=== PATIENT | female | born 1990 | race Caucasian/White ===

== ENCOUNTER → 2017-10-09 14:16 | Outpatient (CLI) | payer OTHER, SELFPAY ==
[2017-10-09 16:04] LABS: Thyroid Stim Hormone (TSH) 1.28 uIU/mL (0.358-3.74)
[2017-10-09 16:08] LABS: Absolute Lymphocyte Count 1.75 X10^3/ul (0.83-4.51); Absolute Neutrophil Count 6.4 X10^3/uL (2.0-7.7); Basophil# 0.01 X10^3/uL; Basophil% 0.1 % (0-1); Eosinophils% 1.2 % (0-5); Hematocrit 36.3 % (37-47); Hemoglobin 12.1 g/dl (12.0-15.0); Lymphocyte # 1.75 X10^3/ul (4.0); Lymphocyte % 20.3 % (19-41); Mean Corp Hgb Conc 33.3 g/gl (32-36); Mean Corpuscular Hgb 27.7 pg (27.0-32.0); Mean Corpuscular Volume 83.1 fL (81-99); Mean Platelet Vol. 10.9 fl (6.2-12.0); Monocyte# 0.39 X10^3/uL; Monocyte% 4.5 % (0-10); Neutrophil # 6.36 X10^3/uL (2.7-7.7); Neutrophil % 73.8 % (47-70); Platelet Count 206 K/mm3 (150-450); RBC Distribution Width CV 12.5 % (11.6-14.6); RBC Distribution Width SD 38.2 fl (35.1-43.9); Red Blood Count 4.37 M/mm3 (4.2-5.4); White Blood Count 8.6 K/mm3 (4.4-11.0)
[2017-10-09 16:10] LABS: Amphetamine Urine VISTA NEGATIVE (<1000 ng/mL); Barbiturate Urine VISTA NEGATIVE (< 200 ng/mL); Benzodiazepine Urine VISTA NEGATIVE (< 200 ng/mL); Cocaine Urine VISTA NEGATIVE (< 300 ng/mL); Ecstacy Urine VISTA NEGATIVE (< 500 ng/mL); Methadone Urine VISTA NEGATIVE (< 300 ng/mL); PCP Urine VISTA NEGATIVE (< 25 ng/mL); THC Urine VISTA NEGATIVE (< 50 ng/mL); Vista UDS pH Range 6
[2017-10-09 16:13] LABS: Color, Urine Yellow (Yellow); Glucose, Dipstick Normal (Normal); Ketone-Dipstick 5 mg/dl (Negative); Leukocyte Esterase-Dipstick 100 /ul (Negative); Nitrite-Dipstick Negative (Negative); Occult Blood-Urine Negative /ul (Negative); Protein-Dipstick Negative (Negative); Specific Gravity, Urine 1.025 (1.002-1.030); Urine Bilirubin Dipstick Negative (Negative); Urine Clarity Sl. Cloudy (Clear); Urine Urobilinogen Normal (Normal)
[2017-10-09 16:23] LABS: COTININE Drug Screen Negative (<200 ng/mL)
[2017-10-09 16:54] LABS: POSITIVE COUNT NO; POSITIVE DIFFERENTIAL NO; POSITIVE MORPHOLOGY NO
[2017-10-10 10:13] LABS: HIV - WCH Non-Reactive (Nonreactive); Rubella IgG > 500.0 IU/mL
[2017-10-11 11:22] LABS: HEPATITIS B SURFACE AG Negative (Negative); Hep C Antibodies 0.1 s/co ratio (0.0-0.9)
[2017-10-14 01:50] LABS: Prenatal RPR REACTIVE (NONREACTIVE)
== END ==
PROVIDERS: Visit Provider Obstetrics & Gynecology
DX: Z34.81 Encounter for supervision of other normal pregnancy, first trimester (principal)
CPT/HCPCS: 36415; 80307; 81002; 84443; 85025; 86703; 86762; 86803; 87340

== ENCOUNTER → 2017-12-04 16:56 | Outpatient (CLI) | payer OTHER, SELFPAY ==
[2017-12-04 17:00] LABS: Mucous, Urine 0 SEEN /hpf (<or=2+); Red Blood Cells-Urine 0 SEEN /hpf (0-5)
[2017-12-04 17:50] LABS: Color, Urine Yellow (Yellow); Glucose, Dipstick Normal (Normal); Ketone-Dipstick Negative (Negative); Leukocyte Esterase-Dipstick 500 /ul (Negative); Nitrite-Dipstick Negative (Negative); Occult Blood-Urine Negative /ul (Negative); Protein-Dipstick Negative (Negative); Specific Gravity, Urine 1.005 (1.002-1.030); Urine Bilirubin Dipstick Negative (Negative); Urine Clarity Sl. Cloudy (Clear); Urine Urobilinogen Normal (Normal)
[2017-12-04 18:14] LABS: Bacteria 1+ /hpf (None Seen); Squamous Epithelial Cells - UA 0-5 SEEN /hpf (5-10); White Blood Cells 0-5 SEEN /hpf (0-5)
== END ==
PROVIDERS: Visit Provider Obstetrics & Gynecology
DX: Z34.82 Encounter for supervision of other normal pregnancy, second trimester (principal); R30.0 Dysuria
CPT/HCPCS: 81001; 87086; 87088

== ENCOUNTER → 2018-02-19 16:27 | Outpatient (CLI) | payer OTHER, SELFPAY ==
[2018-02-19 17:00] LABS: Hematocrit 32.5 % (37-47); Hemoglobin 10.6 g/dl (12.0-15.0); Mean Corp Hgb Conc 32.6 g/gl (32-36); Mean Corpuscular Hgb 27.2 pg (27.0-32.0); Mean Corpuscular Volume 83.5 fL (81-99); Mean Platelet Vol. 10.8 fl (6.2-12.0); Platelet Count 157 K/mm3 (150-450); RBC Distribution Width CV 12.8 % (11.6-14.6); RBC Distribution Width SD 38.7 fl (35.1-43.9); Red Blood Count 3.89 M/mm3 (4.2-5.4); White Blood Count 8.3 K/mm3 (4.4-11.0)
[2018-02-19 17:01] LABS: Scan Indicated on CBC? Y/N NO
[2018-02-19 17:17] LABS: Glucose Challenge Gest 1H 50g 142 mg/dL (70-140)
[2018-02-20 11:05] LABS: Ferritin 4 ng/mL (8-252)
== END ==
PROVIDERS: Visit Provider Obstetrics & Gynecology
DX: Z34.83 Encounter for supervision of other normal pregnancy, third trimester (principal)
CPT/HCPCS: 36415; 82728; 82950; 85027

== ENCOUNTER → 2018-02-26 07:05 | Outpatient (CLI) | payer OTHER, SELFPAY ==
[2018-02-26 08:16] LABS: Glucose GTT-Gestation. Fasting 81 mg/dL (<105)
[2018-02-26 09:43] LABS: Glucose GTT-Gestational 1 Hr 179 mg/dL (<190)
[2018-02-26 10:12] LABS: Glucose GTT-Gestational 2 Hr 175 mg/dL (<165)
[2018-02-26 12:08] LABS: Glucose GTT-Gestational 3 Hr 84 L (<145)
== END ==
PROVIDERS: Visit Provider Obstetrics & Gynecology
DX: O24.912 Unspecified diabetes mellitus in pregnancy, second trimester (principal); Z3A.00 Weeks of gestation of pregnancy not specified
CPT/HCPCS: 36415; 82951; 82952

== ENCOUNTER → 2018-04-11 16:07 | Outpatient (CLI) | payer OTHER, SELFPAY ==
[2018-04-11 18:12] LABS: Group B Strep DNA By PCR Negative (Negative)
[2018-04-11 18:13] LABS: Internal Control PASS; Probe Check PASS; Specimen Processing Control PASS
== END ==
PROVIDERS: Visit Provider Obstetrics & Gynecology
DX: Z36.85 Encounter for antenatal screening for Streptococcus B (principal)
CPT/HCPCS: 87081; 87653

== ENCOUNTER 2018-04-17 13:15 | Outpatient (CLI) | payer OTHER, SELFPAY ==
[2018-04-17 13:33] VITALS: BMI 37.0
--- NOTE | 2018-04-18 00:06 | PCM.DC.D&C ---
Discharge Diet: No Restrictions Discharge Activity: Return to Normal Activity, May Not Drive, May not drive while taking narcotic pain medications., May Shower Return to work on:: 06/17/18 May shower in (days): 0 May resume sexual activity in: 4-6 weeks Call your doctor if your incision/area has: Sudden Increased Bleeding, Increased Pain/ Swelling, Increased Redness, Foul Smelling Discharge, Swelling at the incision site Call your doctor if you observe: Fever of 101 or Higher, Inability to urinate, Inability to have a bowel movement, Using more than one pad per hour, Shortness of breath, Chest pain, Calf discomfort, Uncontrolled pain Remove Dressing in (days):: 3 Cleanse incision/area with: Soap & Water Allergies/Adverse Reactions: Allergies titanium Allergy (Severe, Verified 04/17/18 20:31) Hives bee venom protein (honey bee) Allergy (Mild, Verified 04/17/18 20:31) Swelling Medications to take at Discharge Ferrous Sulfate 325 mg PO DAILY@0800 04/17/18 Vit Calc,Iron,Folic [ Vitamins] 1 each PO DAILY 04/17/18 Ibuprofen 600 mg PO 4X/DAY #30 tab 04/18/18 Oxycodone [Oxyir] 5 - 10 mg PO Q4H PRN PRN 7 Days #28 tab 04/18/18 The following prescriptions were given: Oxycodone [Oxyir] 5 - 10 mg PO Q4H PRN PRN 7 Days #28 tab PRN Reason: Mod-Severe Pain (4-10/10) Ibuprofen 600 mg PO 4X/DAY #30 tab Primary Care Physician: Care Physician,No Primary [Primary Care Provider] - Test Results: Test results from this visit will be discussed in further detail at your follow-up appointment, if applicable. Please Follow Up With: Shwetha Vizcaino MD When: one week Proposed Discharge Date: 04/21/18
--- NOTE | 2018-04-18 00:07 | PCM.OPRPT ---
Problem List (1) Premature rupture of membranes (PROM), onset of labor within 24 hours, delivered, Status: Acute Report of Operation Date of Procedure: 04/18/18 Pre-Operative Diagnosis: Previous Section, Premature Rupture of Membranes, Desires Sterilization Post-Operative Diagnosis: Same Surgery/Procedure Performed:: Repeat Low Transverse Section, Bilateral Partial Salpingectomy Description of Surgical Findings:: Live male in vertex presentation weighing 4kw40my. Apgars 8/9. Amniotic fluid clear. Normal appearing uterus, ovaries, and fallopian tubes. Some scarring present between omentum and anterior abdominal wall. pneumatic deicer inspector: Lela Jha Type of Anesthesia:: Spinal Anesthesiologist: Efrain Barron Special Medications: none Specimen's removed: Portions of the left and right fallopian tubes Drains: rosado Estimated Blood Loss (mL): 600cc Fluids Replaced: 1500cc LR Description of Procedure: Maya was taken to the OR with running. She was given 2 grams of Ancef intravenously for surgical prophylaxis prior to the surgery. SCDs were in place and operational throughout the case. Spinal anesthesia was introduced without complication. A rosado catheter was placed. She was prepped and draped in the supine position with a leftward tilt. Once anesthesia was deemed adequate a Pfannensteil skin incision was made through the previous scar. The underlying subcutaneous tissue was dissected down to the level of facia using sharp and blunt dissection. The fascia was then incised laterally in the midline and this incision was extended bilaterally with the [place] scissors. The upper portion of the fascial defect was then grasped with two Janee clamps, elevated and the rectus muscles dissected off the fascia with blunt and sharp dissection. In a similar fashion the rectus muscles were dissected off the lower fascial defect. The rectus muscles were then in the midline, the peritoneum identified and entered sharply. Once entered the peritoneal defect was extended using blunt retraction. A bladder blade was then placed. The vesicouterine peritoneum was then entered sharply and a bladder flap created. The bladder blade was replaced. The ;lower uterine segement was then intered sharply. Once the cavity was entered the uterine defect was extended using blunt lateral and superior traction. The baby was then delivered from the vertex position without difficulty. The baby's mouth was suctioned with a bulb suction. Delayed cord clamping was employed. The cord was then clamped and cut. The baby was then handed off to the waiting nursing staff for evaluation. The placenta was then delivered manually. The therus was exteriorised and the cavity cleared of all clot and membranes. The uterine incision was then repaired in two layers with #1 Vicryl suture. Attention was then directed tothe fallopian tubes. The left fallopian tube was grasped with a [place] clamp elevated. A rent was made in the mesosalpinx. the tube was then doubly tied with 2-0 plain suture cut and the mesosalpinx distally clamped and cut thus removing the distal portion of the tube. The mesosalpinx was tied off. In a similar fashion the right distal fallopian tube was removed. The posterior cul de sac was then cleared of all clot and fluid. The uterus was returned to the abdomen. The uterine defect was reinspected and found to be hemostatic. The gutters were cleared of all fluid and clot. The peritoneum was then closed with 2-0 Vicryl. The rectus muscles reapproximated with 0-Vicryl suture. The fascia closed with a subcuticular stitch of #1 Stratofix suture. The subcutaneous tissue was closed with 2-0 Vicryl. The skin was closed with a subcuticular stitch of 4-0 Monocryl. Sponge, lap, needle, and instrument counts were correct. She was taken to the recovery room in stable condition. Grafts/Implants Used: none - Complications none - Admit VTE Documentation VTE Present on Admission: No VTE Mechan Device Prophylaxis: SCD's VTE Pharm Prophylaxis ordered?: No
[2018-04-18 06:22] LABS: Hematocrit 30.7 % (37-47); Mean Corp Hgb Conc 32.6 g/gl (32-36); Mean Corpuscular Hgb 26.5 pg (27.0-32.0); Mean Corpuscular Volume 81.2 fL (81-99); Mean Platelet Vol. 12.3 fl (6.2-12.0); Platelet Count 149 K/mm3 (150-450); RBC Distribution Width CV 14.3 % (11.6-14.6); RBC Distribution Width SD 41.3 fl (35.1-43.9); Red Blood Count 3.78 M/mm3 (4.2-5.4); White Blood Count 18.3 K/mm3 (4.4-11.0)
[2018-04-18 06:38] LABS: Scan Indicated on CBC? Y/N NO
--- NOTE | 2018-05-24 12:27 | OB.TRI.NOTE ---
- Problem List (1) Premature rupture of membranes (PROM), onset of labor within 24 hours, delivered, Status: Acute History of Present Illness Date of Service: 04/18/18 Was patient seen by the physician?: Yes Reason For Visit: RULE OUT LABOR Date of Service: 04/18/18 Final HARINI: 05/10/18 Final HARINI Source: US <20 weeks Gestational age: 39 History of Present Illness: Reports contractions and leaking fluid from the vagina Allergies titanium Allergy (Severe, Verified 04/17/18 20:31) Hives bee venom protein (honey bee) Allergy (Mild, Verified 04/17/18 20:31) Swelling Physical Exam General: Alert, Oriented x3, Cooperative, No apparent distress Cardiovascular: Regular rate, Regular Rhythm Lungs: Clear to auscultation, Normal air movement Abdomen: Soft, Non Tender, Non-Distended, Gravid, Appropriate for Gestational Age Neurological: Neuro grossly intact SPECIALIST PHYSICIANS: Normal external genitalia Estimated gestational size: Appropriate for gestational size Presentation: Cephalic NST - FHR Rate Baby A Baseline: 130s Variability:: Moderate Accelerations:: 15 x 15 Decelerations:: None NST Reactive:: Yes, Appropriate for gestational age FHR Category:: Category I Uterine Activity:: irregular contractions Impression/Plan ROM+ testing positive. Previous section. Requesting repeat C/S. Will admit for repeat C/S.
--- NOTE | 2018-05-24 12:31 | OB.TRI.HP_ITS ---
- Problem List (1) Premature rupture of membranes (PROM), onset of labor within 24 hours, delivered, Status: Acute History of Present Illness Date of Service: 04/18/18 Was patient seen by the physician?: Yes Reason For Visit: RULE OUT LABOR Date of Service: 04/18/18 Final HARINI: 05/10/18 Final HARINI Source: US <20 weeks Gestational age: 39 History of Present Illness: Reports contractions and leaking fluid from the vagina Allergies titanium Allergy (Severe, Verified 04/17/18 20:31) Hives bee venom protein (honey bee) Allergy (Mild, Verified 04/17/18 20:31) Swelling Physical Exam General: Alert, Oriented x3, Cooperative, No apparent distress Cardiovascular: Regular rate, Regular Rhythm Lungs: Clear to auscultation, Normal air movement Abdomen: Soft, Non Tender, Non-Distended, Gravid, Appropriate for Gestational Age Neurological: Neuro grossly intact 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 Previous section. Requesting repeat C/S. Will admit for repeat C/S.
== END 2018-04-17 14:20 | disposition home or self-care (01) ==
LOC: WPOUT 13:31 → WP 04-18 06:41
PROVIDERS: Visit Provider Obstetrics & Gynecology
DX: O09.213 Supervision of pregnancy with history of pre-term labor, third trimester (principal); O34.211 Maternal care for low transverse scar from previous cesarean delivery; Z3A.37 37 weeks gestation of pregnancy
CPT/HCPCS: 59050; 85027; 99218; G0378

== ENCOUNTER 2018-04-17 22:50 | Inpatient (IN) | payer OTHER, SELFPAY ==
[2018-04-17] MEDS: Lactated Ringers 1,000 ML 999 ML IV (20:12)
[2018-04-17 20:15] VITALS: BMI 36.8
[2018-04-17] MEDS: Acetaminophen 500 MG Tablet 1000 MG PO (20:24)
[2018-04-17] MEDS: Betamethasone/Betamethasone 30 MG/5 ML Vial 12 MG IM (20:25)
[2018-04-17] MEDS: Terbutaline 1 MG/ML Vial 0.25 MG SC ×2 (21:08→21:56)
[2018-04-17 21:10] LABS: Absolute Lymphocyte Count 1.39 X10^3/ul (0.83-4.51); Absolute Neutrophil Count 11.7 X10^3/uL (2.0-7.7); Basophil# 0.01 X10^3/uL; Basophil% 0.1 % (0-1); Eosinophil# 0.05 X10^3/uL; Eosinophils% 0.4 % (0-5); Hematocrit 33.5 % (37-47); Hemoglobin 10.7 g/dl (12.0-15.0); Lymphocyte # 1.39 X10^3/ul (4.0); Mean Corp Hgb Conc 31.9 g/gl (32-36); Mean Corpuscular Hgb 25.7 pg (27.0-32.0); Mean Corpuscular Volume 80.5 fL (81-99); Mean Platelet Vol. 12.2 fl (6.2-12.0); Monocyte% 5.7 % (0-10); Neutrophil # 11.66 X10^3/uL (2.7-7.7); Neutrophil % 83.6 % (47-70); Platelet Count 144 K/mm3 (150-450); RBC Distribution Width CV 14.1 % (11.6-14.6); RBC Distribution Width SD 41.4 fl (35.1-43.9); Red Blood Count 4.16 M/mm3 (4.2-5.4); White Blood Count 13.9 K/mm3 (4.4-11.0)
[2018-04-17 21:12] LABS: POSITIVE COUNT NO; POSITIVE DIFFERENTIAL NO; POSITIVE MORPHOLOGY NO
[2018-04-17] MEDS: Lactated Ringers 1,000 ML 250 ML IV (21:41)
[2018-04-17 22:48] LABS: ROM Internal Control Test YES-OK TO RESULT pt. (Internal QC)
[2018-04-17 22:49] LABS: ROM Patient Test POSITIVE (Negative)
--- NOTE | 2018-04-17 23:54 | OB.TRI.NOTE ---
History of Present Illness Date of Service: 04/17/18 Was patient seen by the physician?: No Reason For Visit: r/o labor Date of Service: 04/17/18 Final HARINI: 05/10/18 Final HARINI Source: US <20 weeks Gestational age: 36 Weeks and 5 Days History of Present Illness: c/o contractions Allergies titanium Allergy (Severe, Verified 04/17/18 20:31) Hives bee venom protein (honey bee) Allergy (Mild, Verified 04/17/18 20:31) Swelling Physical Exam General: Alert, Oriented x3, Cooperative, No apparent distress Cardiovascular: Regular rate, Regular Rhythm Lungs: Clear to auscultation, Normal air movement Abdomen: Soft, Non Tender, Non-Distended, Gravid, Appropriate for Gestational Age Extremities:: No edema Neurological: Neuro grossly intact BOAT BUILDER: Normal external genitalia Estimated gestational size: Appropriate for gestational size Presentation: Cephalic Cervix Dilation (cm): 0 Station: -3 Effacement (%): 0 NST - FHR Rate Baby A Baseline: 130s Variability:: Moderate Accelerations:: 15 x 15 Decelerations:: None NST Reactive:: Yes, Appropriate for gestational age FHR Category:: Category I Uterine Activity:: irregular Impression/Plan No cervical change and irregular contractions. No cervical change. Discharged with instructions to return if symptoms increase or has signs of PPROM
[2018-04-18] VITALS (25 sets, daily range): BP systolic 103–145; BP diastolic 52–78; PULSE 76–112; RESP 13–18; TEMP 36–37; O2SAT 92–100
--- NOTE | 2018-04-18 | FALS_PTH ---
PATIENT: MARTHA WELDON LOC: [facility] U#:[id number] AGE/SX: 27/F ROOM: WP003 RE04/17/[address]: Dr. Nahum Mondragon MD : 1990 BED: 1 DIS: 04/19/2018 SPEC #: [id number] RECD: 04/18/18 16:01 STATUS: ZHAO REQ #: [id number] CLEVE: 04/18/18 00:[address]: Nahum Mondragon DEPT: SURGICAL PATHOLOGY RECD BY: Art Mercer ENTERED: 04/19/18 07:57 SP TYPE: FALL TUBES OTHR DR: No Primary Care Phys Tissues: Fallopian tube Procedures: Surgery Specimen Level II HEADER OPERATION: Tubal ligation PRE-OP DIAGNOSIS: Desires sterilization TISSUE SUBMITTED: Fallopian tubes, suture in left tube MICROSCOPIC DIAGNOSIS Right fallopian tube - salpingectomy: Benign paratubal cysts. Left fallopian tube ? salpingectomy: No pathologic change. AM:sp 8/27/18 MICROSCOPIC DESCRIPTION Slides are reviewed. GROSS DESCRIPTION Received is one container labeled with the patient's name and designated bilateral fallopian tubes, sutured left. The specimen consists of two designated fallopian tubes with an average length of 2.5 cm and has a maximal diameter of 0.7 cm. Both fallopian tubes have normal fimbriated ends. No mass lesions are identified. Equipment Specialist sections are submitted in two cassettes as follows: 1 ? Right fallopian tube, 2 ? Left fallopian tube. / AM:melanie 04/19/18 TC: 4 CPT: 97621 x2
--- NOTE | 2018-04-18 00:07 | PCM.OPRPT ---
Problem List (1) Premature rupture of membranes (PROM), onset of labor within 24 hours, delivered, Status: Acute Report of Operation Date of Procedure: 04/18/18 Pre-Operative Diagnosis: Previous Section, Premature Rupture of Membranes, Desires Sterilization Post-Operative Diagnosis: Same Surgery/Procedure Performed:: Repeat Low Transverse Section, Bilateral Partial Salpingectomy Description of Surgical Findings:: Live male in vertex presentation weighing [id number]. Apgars 8/9. Amniotic fluid clear. Normal appearing uterus, ovaries, and fallopian tubes. Some scarring present between omentum and anterior abdominal wall. core rescuer: Lela Jha Type of Anesthesia:: Spinal Anesthesiologist: Efrain Barron Special Medications: none Specimen's removed: Portions of the left and right fallopian tubes Drains: rosado Estimated Blood Loss (mL): 600cc Fluids Replaced: 1500cc LR Description of Procedure: Maya was taken to the OR with running. She was given 2 grams of Ancef intravenously for surgical prophylaxis prior to the surgery. SCDs were in place and operational throughout the case. Spinal anesthesia was introduced without complication. A rosado catheter was placed. She was prepped and draped in the supine position with a leftward tilt. Once anesthesia was deemed adequate a Pfannensteil skin incision was made through the previous scar. The underlying subcutaneous tissue was dissected down to the level of facia using sharp and blunt dissection. The fascia was then incised laterally in the midline and this incision was extended bilaterally with the [place] scissors. The upper portion of the fascial defect was then grasped with two Janee clamps, elevated and the rectus muscles dissected off the fascia with blunt and sharp dissection. In a similar fashion the rectus muscles were dissected off the lower fascial defect. The rectus muscles were then in the midline, the peritoneum identified and entered sharply. Once entered the peritoneal defect was extended using blunt retraction. A bladder blade was then placed. The vesicouterine peritoneum was then entered sharply and a bladder flap created. The bladder blade was replaced. The ;lower uterine segement was then intered sharply. Once the cavity was entered the uterine defect was extended using blunt lateral and superior traction. The baby was then delivered from the vertex position without difficulty. The baby's mouth was suctioned with a bulb suction. Delayed cord clamping was employed. The cord was then clamped and cut. The baby was then handed off to the waiting nursing staff for evaluation. The placenta was then delivered manually. The therus was exteriorised and the cavity cleared of all clot and membranes. The uterine incision was then repaired in two layers with #1 Vicryl suture. Attention was then directed tothe fallopian tubes. The left fallopian tube was grasped with a [place] clamp elevated. A rent was made in the mesosalpinx. the tube was then doubly tied with 2-0 plain suture cut and the mesosalpinx distally clamped and cut thus removing the distal portion of the tube. The mesosalpinx was tied off. In a similar fashion the right distal fallopian tube was removed. The posterior cul de sac was then cleared of all clot and fluid. The uterus was returned to the abdomen. The uterine defect was reinspected and found to be hemostatic. The gutters were cleared of all fluid and clot. The peritoneum was then closed with 2-0 Vicryl. The rectus muscles reapproximated with 0-Vicryl suture. The fascia closed with a subcuticular stitch of #1 Stratofix suture. The subcutaneous tissue was closed with 2-0 Vicryl. The skin was closed with a subcuticular stitch of 4-0 Monocryl. Sponge, lap, needle, and instrument counts were correct. She was taken to the recovery room in stable condition. Grafts/Implants Used: none - Complications none - Admit VTE Documentation VTE Present on Admission: No VTE Mechan Device Prophylaxis: SCD's VTE Pharm Prophylaxis ordered?: No
--- NOTE | 2018-04-18 00:29 | OP.PCM_ITS ---
Problem List (1) Premature rupture of membranes (PROM), onset of labor within 24 hours, delivered, Status: Acute Report of Operation Date of Procedure: 04/18/18 Pre-Operative Diagnosis: Previous Section, Premature Rupture of Membranes, Desires Sterilization Post-Operative Diagnosis: Same Surgery/Procedure Performed:: Repeat Low Transverse Section, Bilateral Partial Salpingectomy Description of Surgical Findings:: Live male in vertex presentation weighing 3pf65ty. Apgars 8/9. Amniotic fluid clear. Normal appearing uterus, ovaries, and fallopian tubes. Some scarring present between omentum and anterior abdominal wall. test engineer nuclear equipment: Lela Jha Type of Anesthesia:: Spinal Anesthesiologist: Efrain Barron Special Medications: none Specimen's removed: Portions of the left and right fallopian tubes Drains: rosado Estimated Blood Loss (mL): 600cc Fluids Replaced: 1500cc LR Description of Procedure: Maya was taken to the OR with running. She was given 2 grams of Ancef intravenously for surgical prophylaxis prior to the surgery. SCDs were in place and operational throughout the case. Spinal anesthesia was introduced without complication. A rosado catheter was placed. She was prepped and draped in the supine position with a leftward tilt. Once anesthesia was deemed adequate a Pfannensteil skin incision was made through the previous scar. The underlying subcutaneous tissue was dissected down to the level of facia using sharp and blunt dissection. The fascia was then incised laterally in the midline and this incision was extended bilaterally with the Pined[place] scissors. The upper portion of the fascial defect was then grasped with two Janee clamps, elevated and the rectus muscles dissected off the fascia with blunt and sharp dissection. In a similar fashion the rectus muscles were dissected off the lower fascial defect. The rectus muscles were then in the midline, the peritoneum identified and entered sharply. Once entered the peritoneal defect was extended using blunt retraction. A bladder blade was then placed. The vesicouterine peritoneum was then entered sharply and a bladder flap created. The bladder blade was replaced. The ;lower uterine segement was then intered sharply. Once the cavity was entered the uterine defect was extended using blunt lateral and superior traction. The baby was then delivered from the vertex position without difficulty. The baby's mouth was suctioned with a bulb suction. Delayed cord clamping was employed. The cord was then clamped and cut. The baby was then handed off to the waiting nursing staff for evaluation. The placenta was then delivered manually. The therus was exteriorised and the cavity cleared of all clot and membranes. The uterine incision was then repaired in two layers with #1 Vicryl suture. Attention was then directed tothe fallopian tubes. The left fallopian tube was grasped with a [place] clamp elevated. A rent was made in the mesosalpinx. the tube was then doubly tied with 2-0 plain suture cut and the mesosalpinx distally clamped and cut thus removing the distal portion of the tube. The mesosalpinx was tied off. In a similar fashion the right distal fallopian tube was removed. The posterior cul de sac was then cleared of all clot and fluid. The uterus was returned to the abdomen. The uterine defect was reinspected and found to be hemostatic. The gutters were cleared of all fluid and clot. The peritoneum was then closed with 2-0 Vicryl. The rectus muscles reapproximated with 0- Vicryl suture. The fascia closed with a subcuticular stitch of #1 Stratofix suture. The subcutaneous tissue was closed with 2-0 Vicryl. The skin was closed with a subcuticular stitch of 4-0 Monocryl. Sponge, lap, needle, and instrument counts were correct. She was taken to the recovery room in stable condition. Grafts/Implants Used: none - Complications none - Admit VTE Documentation VTE Present on Admission: No VTE Mechan Device Prophylaxis: SCD's VTE Pharm Prophylaxis ordered?: No
[2018-04-18] MEDS: Sodium Citrate/Citric Acid 30 ML UDC PO (00:38)
[2018-04-18] MEDS: Cefazolin 2 GM in 0.9% Normal Saline 100 ML IV (00:50)
[2018-04-18] MEDS: Lactated Ringers 1,000 ML 150 ML IV (02:56)
[2018-04-18] MEDS: Lactated Ringers 1,000 ML 100 ML IV (04:45)
--- NOTE | 2018-04-18 06:38 | PCM.DCCSEC ---
Discharge Diet: No Restrictions Discharge Activity: Return to Normal Activity, May Not Drive, May not drive while taking narcotic pain medications., May Shower Return to work on:: 06/17/18 May shower in (days): 0 May resume sexual activity in: 4-6 weeks Call your doctor if your incision/area has: Sudden Increased Bleeding, Increased Pain/ Swelling, Foul Smelling Discharge, Swelling at the incision site Call your doctor if you observe: Fever of 101 or Higher, Inability to urinate, Inability to have a bowel movement, Using more than one pad per hour, Shortness of breath, Chest pain, Calf discomfort, Uncontrolled pain Remove Dressing in (days):: 3 Cleanse incision/area with: Soap & Water Additional Instructions: If you experience any of the following, contact your healthcare provider. Bleeding that soaks a pad every hour for 2 hours Fever 100.4 or higher Unrelieved incision or abdominal pain Swelling, redness, discharge or bleeding from your incision or episiotomy site Your incision begins to separate Problems urinating (including inability to urinate or burning while urinating). Visual changes Severe headache Flu-like symptoms Pain or redness in one of both of your breasts Pain, warmth, tenderness or swelling in your legs, especially the calf area Frequent nausea and vomiting Symptoms of depression or anxiety If you experience any of the following, call 911 or go to the nearest Emergency Room. Chest pain Problems breathing Seizure activity Partial or complete paralysis of a body part, slurred speech, weakness or drooping of the face, or a sudden inability to walk or hold your balance Allergies/Adverse Reactions: Allergies titanium Allergy (Severe, Verified 04/17/18 20:31) Hives bee venom protein (honey bee) Allergy (Mild, Verified 04/17/18 20:31) Swelling Medications to take at Discharge RX: Ferrous Sulfate 325 mg PO DAILY@0800 04/17/18 RX: Vit Calc,Iron,Folic [ Vitamins] 1 each PO DAILY 04/17/18 RX: Ibuprofen 600 mg PO 4X/DAY #30 tab 04/18/18 RX: Oxycodone [Oxyir] 5 - 10 mg PO Q4H PRN PRN 7 Days #28 tab 04/18/18 Follow-Up: Call to make an appointment with your doctor for an incision check in 1-2 weeks. You will also need a 6 week post- follow up appointment. Test results from this visit will be discussed in further detail at your follow-up appointment, if applicable. Please Follow Up With: Shwetha Vizcaino MD When: one week Primary Care Physician: Care Physician,No Primary [Primary Care Provider] - Proposed Discharge Date: 04/20/18
[2018-04-18] MEDS: Oxytocin 30 units/NS 500 ml 30 UNITS/500 ML IV.SOLN 167 UNITS IV (07:22)
[2018-04-18] MEDS: Cefazolin 1 GM/50 ML BAG IV ×2 (09:10→17:24)
--- NOTE | 2018-04-18 10:54 | CPS ---
patient talking with physician, nursing to start
--- NOTE | 2018-04-18 11:12 | PCM.PN.OB ---
Subjective: Pain minimal. OOB and ambulating. No flatus yet. Weir remains in situ. No complaints, denies heavy lochia. She is pumping. transferred to [facility] for RDS Objective: AVSS - Physical Exam General: Oriented x3, Cooperative, No apparent distress HEENT: Atraumatic, Normocephalic Lungs: Clear to auscultation, Normal air movement Cardiovascular: Regular rate, Regular Rhythm, Normal S1, Normal S2 Abdomen: Bowel Sounds Present, Soft, Non Tender, Non-Distended, - - Fundus firm and nontender at umbilicus, incisional dressing c/d/i, lochia scant Extremities: No edema, No Calf Tenderness Neurological: Neuro grossly intact Psych/Mental Status: Normal Affect, Appropriate, Alert and oriented to time, place, person, mood and affect Vital Signs Temp Pulse Resp BP Pulse Ox 97.9 F 98 16 130/60 H 97 04/18/18 09:04 04/18/18 10:04 04/18/18 10:04 04/18/18 09:04 04/18/18 10:04 Oxygen Delivery Method Room Air Weight: 103.5 kg Body Mass Index (BMI) 36.8 Intake and Output for Last 24 Hours 04/16/18 04/17/18 04/18/18 23:59 23:59 23:59 Intake Total 1921 / 1921 Output Total 1450 / 1450 Balance 471 / 471 Laboratory Tests Past 24 Hrs 04/17/18 04/17/18 04/17/18 21:00 21:00 22:35 WBC 13.9 H RBC 4.16 L Hgb 10.7 L Hct 33.5 L MCV 80.5 L MCH 25.7 L MCHC 31.9 L RDW 14.1 RDW Differential 41.4 Plt Count 144 L MPV 12.2 H Immature Gran % (Auto) 0.200 Neut % (Auto) 83.6 H Lymph % (Auto) 10.0 L [place] % (Auto) 5.7 Eos % (Auto) 0.4 Baso % (Auto) 0.1 Absolute Neuts (auto) 11.7 H Absolute Lymphs (auto) 1.39 Total Counted Not Reportable Vag Amniotic Fld Detect POSITIVE H Blood Type Cancelled Antibody Screen Cancelled 04/17/18 23:12 WBC RBC Hgb Hct MCV MCH MCHC RDW RDW Differential Plt Count MPV Immature Gran % (Auto) Neut % (Auto) Lymph % (Auto) [place] % (Auto) Eos % (Auto) Baso % (Auto) Absolute Neuts (auto) Absolute Lymphs (auto) Total Counted Vag Amniotic Fld Detect Blood Type A POSITIVE Antibody Screen NEGATIVE Medical Necessity - Tobacco Use Smoking Status: Former smoker Assessment/Plan All Active Problems Premature rupture of membranes (PROM), onset of labor within 24 hours, delivered, (Acute) Dermoid cyst of right ovary (Acute) 27yo s/p RLTCS at 36 5/7wga with BTL doing well. -A positive, HCV Ab neg, HBsAg neg, Rubella immune, FTA Ab neg (for prior positive RPR) -Routine postop care -Ambulation encouraged -Regular diet
[2018-04-18] MEDS: Prenatal Vits Tablet 1 TABLET PO (12:14)
[2018-04-18] MEDS: Ferrous Sulfate 325 MG Tablet PO (12:14)
[2018-04-18] MEDS: Ketorolac 30 MG/ML Syringe IV ×2 (12:14→17:30)
[2018-04-19] MEDS: Ketorolac 30 MG/ML Syringe IV ×3 (01:04→11:50)
[2018-04-19 01:05] VITALS: BP 126/70; PULSE 91; RESP 16; TEMP 36.8; O2SAT 92
[2018-04-19] MEDS: 0.9% Saline Lock 10 ML Syringe IV ×3 (01:05→11:50)
[2018-04-19 05:48] LABS: Hemoglobin 9.6 g/dl (12.0-15.0); Mean Corpuscular Hgb 25.5 pg (27.0-32.0); Mean Corpuscular Volume 82.4 fL (81-99); Mean Platelet Vol. 11.4 fl (6.2-12.0); Platelet Count 164 K/mm3 (150-450); RBC Distribution Width CV 14.9 % (11.6-14.6); RBC Distribution Width SD 44.1 fl (35.1-43.9); Red Blood Count 3.76 M/mm3 (4.2-5.4); White Blood Count 13.1 K/mm3 (4.4-11.0)
[2018-04-19 05:51] LABS: Scan Indicated on CBC? Y/N NO
--- NOTE | 2018-04-19 08:50 | PCM.PN.OB ---
Subjective: Pain is minimal. OOB, passing flatus, tolerates regular diet without nausea or vomiting. She is pumping. Desires early discharge. Objective: avss - Physical Exam General: Alert, Oriented x3, Cooperative HEENT: Atraumatic, Normocephalic Lungs: Clear to auscultation, Normal air movement Cardiovascular: Regular rate, Regular Rhythm, Normal S1, Normal S2 Abdomen: Bowel Sounds Present, Soft, Non Tender, Non-Distended, - - fundus firm and nontender, incisional dressing c/d/i Extremities: No Calf Tenderness, - - trace LE edema Neurological: Neuro grossly intact Psych/Mental Status: Normal Affect, Appropriate, Alert and oriented to time, place, person, mood and affect Vital Signs Temp Pulse Resp BP Pulse Ox 98.3 F 91 16 126/70 H 92 04/19/18 01:05 04/19/18 01:05 04/19/18 01:05 04/19/18 01:05 04/19/18 01:05 Oxygen Delivery Method Room Air Weight: 103.5 kg Body Mass Index (BMI) 36.8 Intake and Output for Last 24 Hours 04/17/18 04/18/18 04/19/18 23:59 23:59 23:59 Intake Total 4973 / 4973 1000 / 1000 Output Total 3200 / 3200 1800 / 1800 Balance 1773 / 1773 -800 / -800 Laboratory Tests Past 24 Hrs 04/19/18 05:25 WBC 13.1 H RBC 3.76 L Hgb 9.6 L Hct 31.0 L MCV 82.4 MCH 25.5 L MCHC 31.0 L RDW 14.9 H RDW Differential 44.1 H Plt Count 164 MPV 11.4 Medical Necessity - Tobacco Use Smoking Status: Former smoker Assessment/Plan All Active Problems Premature rupture of membranes (PROM), onset of labor within 24 hours, delivered, (Acute) Dermoid cyst of right ovary (Resolved) 27yo POD#1 s/p RLTCS at 36 5/7wga with BTL doing well. -A positive, HCV Ab neg, HBsAg neg, HIV neg, Rubella immune, FTA Ab neg (for prior positive RPR) -Routine postop care -Ambulation encouraged -Regular diet -Plan for early d/c today - at [facility]
[2018-04-19] MEDS: Ferrous Sulfate 325 MG Tablet PO (09:04)
[2018-04-19] MEDS: Senna/Docusate Sodium 1 Tablet PO (09:13)
[2018-04-19 09:30] VITALS: BP 134/84; PULSE 76; RESP 18; TEMP 36.7; O2SAT 98
[2018-04-19] MEDS: Prenatal Vits Tablet 1 TABLET PO (11:50)
[2018-04-19 12:30] VITALS: BP 130/82; PULSE 76; RESP 18; TEMP 36.9; O2SAT 99
[2018-04-19] MEDS: oxyCODONE 5 MG Tablet PO (12:48)
[2018-04-23 11:32] LABS: Pathology Specimen OB SEE PATHOLOGY REPORT
== END 2018-04-19 13:00 | disposition home or self-care (01) | DRG 766 ==
LOC: WPOUT 22:53
PROVIDERS: Admitting Provider Obstetrics & Gynecology; Visit Provider Obstetrics & Gynecology
DX: O42.013 Preterm premature rupture of membranes, onset of labor within 24 hours of rupture, third trimester (principal); O34.211 Maternal care for low transverse scar from previous cesarean delivery; Z37.0 Single live birth; Z3A.36 36 weeks gestation of pregnancy; Z87.891 Personal history of nicotine dependence
CPT/HCPCS: 36415; 59025; 59050; 84112; 85025; 85027; 86850; 86900; 88302; 96372; 99218; J7120; A4216; G0378; J0702

== ENCOUNTER → 2018-08-31 13:18 | Outpatient (CLI) | payer OTHER, SELFPAY | PROVIDERS: Visit Provider Otolaryngology Otolaryngology/Facial Plastic Surgery | DX: J02.9 Acute pharyngitis, unspecified (principal) | CPT/HCPCS: 87070 ==

== ENCOUNTER → 2018-12-13 09:25 | Outpatient (CLI) | payer OTHER, SELFPAY ==
[2018-12-13 14:46] LABS: Progesterone Level 1.18 ng/mL (See Comment)
== END ==
LOC: WOBLAB 09:32
PROVIDERS: Visit Provider Obstetrics & Gynecology
DX: N92.0 Excessive and frequent menstruation with regular cycle (principal)
CPT/HCPCS: 36415; 84144

== ENCOUNTER 2023-03-30 08:34 | Emergency (ER) | payer SELFPAY ==
[2023-03-30 08:35] VITALS: BP 112/75; PULSE 78; RESP 16; TEMP 36.6; O2SAT 98; BMI 29.1
--- NOTE | 2023-03-30 09:17 | CT_ITS ---
STUDY: CT BRAIN WITHOUT CONTRAST REASON FOR EXAM: Female, 32 years old. One-day history of headaches. RADIATION DOSAGE (If Supplied By Facility): CTDIvol = ( 44.99 ) mGy, DLP = ( 779.24 ) mGycm TECHNIQUE: Transaxial CT imaging of the brain was performed without administration of intravenous contrast material. Individualized dose optimization techniques were used for this CT. COMPARISON: No relevant priors. FINDINGS: Normal soft tissue structures. Normal calvarium. Normal size ventricles and extra-axial spaces for the patient''s age. Normal white matter tracts of the cerebral hemispheres. Normal basal ganglia and thalami. Normal brainstem. Normal cerebellum. There is no intracranial hemorrhage. There are no findings of an acute ischemic infarction. Normal visualized paranasal sinuses. CT/Brain/Head without Contrast IMPRESSION: Normal unenhanced CT scan of the brain. Electronically Signed: Moe Denson MD at 10:42 EDT ,
--- NOTE | 2023-03-30 09:17 | EX.ED.VIS.HA ---
HPI History of Present Illness Chief Complaint: Headache Narrative Narrative: 32-year-old female presenting with migraine headache. She states she has been diagnosed with migraine cluster headaches since she was 16. She is never had any imaging of her head. Currently she had a headache for couple of days. She states that she is never had to come to the emergency room for headache. She states that typically she takes a beta-maegan and is stopped her headache. She has not had any fever or neck stiffness. She does complain of photophobia and phonophobia. Denies other significant medical problems. [facility] Medical History Acute streptococcal pharyngitis Anemia Allergy/AdvReac Type Severity Reaction Status Date / Time titanium Allergy Severe Hives Verified 03/30/23 08:35 bee venom protein (honey bee) Allergy Mild Swelling Verified 03/30/23 08:35 Surgical History Previous section Social History Smoking Status: Former smoker alcohol intake: never ROS ROS ED Constitutional Constitutional ED: Denies chills, fever(s) or sweats Eyes Eyes: Reports other Details: Light sensitivity ; Denies blurry vision or change in vision ENT ENT ED: Reports other Details: Sound sensitivity ; Denies ear pain or sore throat Cardiovascular Cardiovascular: Denies chest pain, palpitations or racing heartbeat Respiratory/Chest Respiratory/Chest: Denies cough, dyspnea or sputum Gastrointestinal Gastrointestinal: Denies abdominal pain, constipation, diarrhea, nausea or vomiting Genitourinary Genitourinary ED: Denies dysuria, hematuria or urinary frequency Musculoskeletal Musculoskeletal: Denies arthralgias, myalgias or neck pain Integumentary Denies abscess, Abrasions or rash Neurologic Neurologic: Reports headache(s); Denies paresthesias or weakness Psychiatric Psychiatric: Denies anxiety, depression, suicidal ideation or suicidal thoughts Endocrine Endocrinology: Denies polydipsia or polyuria EXAM Physical Exam Const Vital Signs: 03/30/23 08:35 Temperature 97.8 F Temperature Source Temporal Pulse Rate 78 Respiratory Rate 16 Blood Pressure 112/75 Blood Pressure Mean 87 Pulse Ox 98 Oxygen Delivery Method Room Air General Appearance ED: Negative for pallor HEENT Reports normocephalic atraumatic Eyes PERRL and EOMs intact bilaterally Neck no lymphadenopathy and no meningeal signs Resp normal respiratory effort and clear to auscultation bilaterally Auscultation: Negative for rales, rhonchi or wheezes Cardio regular rate and regular rhythm Neuro oriented x3, CN's II-XII intact bilaterally and no sensory deficits noted Neuro Narrative: No focal neurologic deficits or lateralizing signs or symptoms. [place] Coma Scale: document GCS findings Spontaneous Obeys Commands Oriented 15 Sensorium / Orientation: awake and alert Speech: speech normal Motor Exam: strength 5/5 throughout Psych mental status grossly normal Skin General Skin Exam: Negative for jaundice or pallor MDM MDM MDM Narrative Medical decision making narrative: Patient presenting with migraine. She states has had diagnosis of cluster migraines since she was a child. She is never had any imaging of her brain. She states the symptoms are typical of her migraine however. Differential includes migraine headache, cluster headache, intracranial hemorrhage, intracranial mass. Will obtain CT brain. Patient was medicated with a liter normal saline, Reglan and Benadryl. CT brain was negative for acute findings. Patient was given Toradol. Reevaluation at 10:50 AM the patient is feeling much better. She wishes to go home. Patient is given follow-up with neurology. Return precautions discussed. Impression: 1. Headache Radiography Diagnostic Testing: Clinical Impression(s) from Imaging Studies Brain CT 03/30/23 09:17 IMPRESSION: Normal unenhanced CT scan of the brain. Electronically Signed: Moe Denson MD at 10:42 EDT , Discharge Plan Triage Chief Complaint: Headache ED Provider: Chilango Pulido Dx/Rx/DC Orders Instructions: ED Headache Unspecified Primary Care Provider: Care Physician,No Primary Referrals: Juan Munoz MD [Non-Staff -Ordering Privileges] - 3-5 Days Care Physician,No Primary [Primary Care Provider] - Disposition Disposition: Home, Self Care
[2023-03-30] MEDS: 0.9% Normal Saline 1,000 ML 999 ML IV (09:30)
[2023-03-30] MEDS: DiphenhydrAMINE 50 MG/ML Syringe 25 MG IV (09:31)
[2023-03-30] MEDS: Metoclopramide 10 MG/2 ML Vial IV (09:31)
[2023-03-30] MEDS: Ketorolac 15 MG/ML Vial IV (10:28)
[2023-03-30 11:12] VITALS: RESP 16
== END 2023-03-30 11:13 | disposition home or self-care (01) ==
PROVIDERS: Emergency Provider Student in an Organized Health Care Education/Training Program; Visit Provider Student in an Organized Health Care Education/Training Program
DX: R51.9 Headache, unspecified (principal); Z87.891 Personal history of nicotine dependence
CPT/HCPCS: 70450; 96361; 96374; 96375; 99282; J7030; A4216

== ENCOUNTER → 2025-04-23 | Outpatient (CLI) | payer MEDICAID, SELFPAY | END | disposition home or self-care (01) | PROVIDERS: Referring Provider Physician Assistant; Visit Provider Physician Assistant | DX: R82.90 Unspecified abnormal findings in urine (principal); N89.8 Other specified noninflammatory disorders of vagina | CPT/HCPCS: 87077; 87086; 87088; 87186 ==

== ENCOUNTER → 2025-04-24 | Outpatient (CLI) | payer MEDICAID, SELFPAY ==
[2025-04-24 12:17] LABS: Hematocrit 37.8 % (37-47); Hemoglobin 12.9 g/dL (12.0-15.0); Immature Granulocytes Count 0.030 X10^3/uL (0.0-0.0); Mean Corp Hgb Conc 34.1 g/dL (32-36); Mean Corpuscular Volume 82.7 fL (81-99); Mean Platelet Vol. 11.2 fl (6.2-12.0); NRBC Flagged by Analyzer 0 % (0-5); Platelet Count 256 K/mm3 (150-450); RBC Distribution Width CV 12.0 % (11.6-14.6); RBC Distribution Width SD 36.3 fl (35.1-43.9); Red Blood Count 4.57 M/mm3 (4.2-5.4); White Blood Count 7.3 K/mm3 (4.4-11.0)
== END | disposition home or self-care (01) ==
PROVIDERS: Referring Provider Obstetrics & Gynecology; Visit Provider Obstetrics & Gynecology
DX: N93.9 Abnormal uterine and vaginal bleeding, unspecified (principal)
CPT/HCPCS: 36415; 84443; 85025

== ENCOUNTER → 2025-05-01 | Outpatient (CLI) | payer MEDICAID, SELFPAY ==
--- NOTE | 2025-05-01 13:19 | US_ITS ---
PROCEDURE: PELVIC W/ TRANSVAGINAL REASON FOR EXAM: ABNORMAL UTERINE BLEEDING TECHNIQUE: Procedure Code: [id number] Modality: US Procedure: PELVIC W/ TRANSVAGINAL COMPARISON: None FINDINGS: LMP: April 22, 2025. Measurements: Uterus: 10.5 cm x 5.1 cm x 3.9 cm with a volume of 111.41 mL Endometrial Thickness: 9.9 mm Right Ovary: 4.6 cm x 3.2 cm x 3.5 cm with a volume of 27.23 mL. Left Ovary: 3.4 cm x 3.2 cm x 2.7 cm with a volume of 15.09 mL. TRANSABDOMINAL: Uterus: Unremarkable Endometrium: Hyperechoic. Right ovary: Small follicles in the peripheral aspect of the ovary.. Left ovary: Small follicles in the peripheral aspect of the ovary. Other: No large pelvic mass identified. Transvaginal sonography was performed to better visualize the endometrium. TRANSVAGINAL: Uterus: Retroverted. Endometrium: Normal echotexture. Right ovary: Normal size and echotexture. Left ovary: Normal size and echotexture. Other adnexal findings: None. Cul-de-sac: No free intraperitoneal fluid identified. Tenderness: US/Pelvic w/ Transvaginal IMPRESSION: NORMAL TRANSABDOMINAL AND TRANSVAGINAL PELVIC ULTRASOUND. Reading Location: [id number]
== END | disposition home or self-care (01) ==
PROVIDERS: Referring Provider Obstetrics & Gynecology; Visit Provider Obstetrics & Gynecology
DX: N93.9 Abnormal uterine and vaginal bleeding, unspecified (principal)
CPT/HCPCS: 76830; 76856

== ENCOUNTER → 2025-06-19 | Outpatient (CLI) | payer MEDICAID, SELFPAY ==
--- NOTE | 2025-06-19 13:45 | EMB_PTH ---
PATIENT: MARTHA WELDON LOC: [facility] U#:[id number] AGE/SX: 34/F ROOM: RE06/19/[address]: Dr. Olga Yoon MD : 1990 BED: DIS: 06/19/2025 SPEC #: [id number] RECD: 06/19/25 15:43 STATUS: ZHAO REQ #: [id number] CLEVE: 06/19/25 13:[address]: Olga Yoon DEPT: SURGICAL PATHOLOGY RECD BY: He Nassar ENTERED: 06/22/25 08:57 SP TYPE: ENDOM BX/C VIJAYA DR: No Primary Care Phys Tissues: A - Endometrium, NOS Procedures: Surgery Specimen Level IV HEADER OPERATION: Endometrial biopsy PRE-OP DIAGNOSIS: Abnormal uterine bleeding TISSUE SUBMITTED: A- Endometrial tissue MICROSCOPIC DIAGNOSIS A. Endometrium, biopsy: - Secretory endometrium. MICROSCOPIC DESCRIPTION Slides are reviewed. GROSS DESCRIPTION A. Received in formalin labeled with the patient's name and date of is a 2.5 x 1.8 x 0.2 cm aggregate of pale munoz tissue fragments and mucoid material. Entirely submitted in 1 cassette. MN 06/22/2025 CPT:02260
== END | disposition home or self-care (01) ==
LOC: LABSPEC 14:52
PROVIDERS: Visit Provider Obstetrics & Gynecology
DX: N93.9 Abnormal uterine and vaginal bleeding, unspecified (principal)
CPT/HCPCS: 88305

== ENCOUNTER 2025-08-13 05:28 | Day surgery (SDC) | payer MEDICAID, SELFPAY ==
[2025-08-06 11:26] LABS: Hematocrit 38.3 % (37-47); Hemoglobin 12.8 g/dL (12.0-15.0); Mean Corp Hgb Conc 33.4 g/dL (32-36); Mean Corpuscular Volume 83.8 fL (81-99); Mean Platelet Vol. 10.4 fl (6.2-12.0); Platelet Count 271 K/mm3 (150-450); RBC Distribution Width CV 12.5 % (11.6-14.6); RBC Distribution Width SD 37.7 fl (35.1-43.9); Red Blood Count 4.57 M/mm3 (4.2-5.4); White Blood Count 7.0 K/mm3 (4.4-11.0)
[2025-08-06 12:12] LABS: Magnesium 2.1 mg/dL (1.5-2.2)
--- NOTE | 2025-08-12 15:40 | HP.PCM_ITS ---
History and Physical Date of Admission: 08/13/25 Intake Vital Signs 06/19/2513:32 08/06/2510:20 Height 5 ft 6 in 5 ft 6 in Weight: 207 lb 8 oz 202 lb 1 oz BMI 33.5 32.5 BP 112/66 138/79 H Intake Visit Reasons: preop LAVHBS [employer] Professor Required: No Is patient in pain?: No Allergies titanium Allergy (Severe, Verified 08/06/25 10:22) Hives bee venom protein (honey bee) Allergy (Mild, Verified 08/06/25 10:22) Swelling Medications ?Medication ?Instructions ?Recorded ?Confirmed ?Type NK 08/06/25 08/06/25 History Post menopausal: No Patient : No : No PFSH Medical History (Updated 08/06/25 @ 10:[address] Olga Yoon MD) Pre-op testing Wears glasses Former smoker Dermoid cyst of both ovaries Migraine-cluster headache syndrome Acute streptococcal pharyngitis Anemia Surgical History (Updated 08/06/25 @ 10:[address] Olga Yoon MD) [place] teeth extracted H/O ovarian cystectomy Previous section Family History Grandmother Asthma Cancer salivary glands Diabetes Grandfather COPD (chronic obstructive pulmonary disease) Bladder cancer, Onset Age: 75 paternal Skin cancer paternal Lung cancer, Onset Age: 70 Sister Endometriosis Mother Thyroid disorder Anxiety Depression Other CVA (cerebral vascular accident) Social History adopted: No household members: significant other and children number of children: 2 current occupational status: employed current occupation: [employer] Smoking Status: Former smoker alcohol intake: never substance use type: does not use what type of physical activity do you participate in: none seatbelt use: sometimes do you feel safe at home: Yes additional social history: Ofelia Adan Patient has 2 kids, Loco has 3 kids HPI preop LAVHBS Details: MARTHA WELDON is a 35 year old who presents for Female Reproductive History Menopausal Symptoms: No night sweats HPI Comments Details: The patient is a 34-year-old female with a history of heavy and irregular menstrual bleeding presenting for preop visit. Menstrual History - Reports heavy and irregular menstrual bleeding, with periods occurring once a month but lasting two weeks each time. - During menstruation, she changes a pad or tampon every couple of hours and experiences significant cramping. - Has tried control pills in the past, which reportedly worsened her symptoms, and natural remedies, which were ineffective. Past Diagnostic Results - Blood counts: Lower end of normal. - Thyroid function: Normal. - Pelvic ultrasound: Uterus slightly enlarged at 10 cm (normal 6-8 cm), endometrial lining of medium thickness, no significant fibroids, ovaries appear normal with follicles, no evidence of dermoid cysts. Past Surgical History - Two previous C-sections. 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 History 3 Elective abortions Hx Para 2 Spontaneous abortions 1 Hx # Term Pregnancies Ectopic pregnancies Hx # Pregnancies Multiple births # of living children 2 Past Pregnancies Del. Date Name GA/Weeks Outcome Route Bth Weight Gen Labor Lgth Anesthesia Del Locatn Provider FOB Unknown 2016 7 spontaneous Unknown 2014 Michael live - full term C-se ction Unknown 2017 Hay live - C-sectio n ROS Const Constitutional: Denies fatigue, night sweats, weight gain or weight loss ENT ENT: Reports system reviewed and no additional complaints, except as documented Cardio Card: Denies chest pain Resp Resp: Denies cough or dyspnea GI GI: Reports as per HPI; Denies abdominal pain, constipation, nausea or vomiting : Denies nipple discharge, urinary frequency, urinary incontinence, urinary hesitancy, urinary urgency, vaginal discharge, vaginal dryness, vaginal odor or vaginal pruritus Musc Musc: Denies arthralgias, back pain or muscle weakness Skin Skin/Breast: Denies alopecia, change in hair, dry skin, breast mass, breast pain, breast skin changes or nipple discharge Neuro Neuro: Reports system reviewed and no additional complaints, except as documented Psych Psych: Reports system reviewed and no additional complaints, except as documented Endo Endo: Denies cold intolerance, excessive sweating, heat intolerance or polydipsia Arnold/Lymph Hematologic/Lymphatic: Denies easy bleeding, Denies easy bruising and Denies lymphadenopathy Exam Const General: cooperative, healthy appearing, comfortable and no acute distress Orientation: alert HENMT Head: normal to inspection and normocephalic Ears: hearing grossly normal bilaterally and external ears normal Nose: external nose normal and nares normal Face and sinus: normal facial exam Neck Neck: normal visual inspection and no lymphadenopathy Thyroid: thyroid normal Chest Chest palpation & inspection: normal inspection of the chest Resp Effort & Inspection: normal respiratory effort Auscultation: clear to auscultation bilaterally Cardio Rate: regular rate Rhythm: regular rhythm Heart Sounds: S1 normal and S2 normal GI Inspection: normal to inspection and non-distended Palpation: soft and no hepatosplenomegaly Musc Other: gross motor intact no deficits, full bilateral strength Skin General: no rashes or lesions noted Neuro General: patient alert, patient awake, moves all extremities and no focal motor deficits Motor: muscle tone normal throughout Extrem General: normal to inspection and no pedal edema Psych Appearance: grossly normal Mental Status: mental status grossly normal Affect: normal affect Speech and Movement: speech and movement normal Coding Level of Care Code No Charge Diagnoses Abnormal uterine bleeding N93.9 Additional Codes SDOH Screening - Does the patient want assistance with any of the above?: No ([id number]) Assessment and Plan Assessment and Plan (1) Abnormal uterine bleeding: Status: Acute Comment: failed ocp in the past, 2 prev csection, tried natural remedies OTC. cbc tsh US EMB done. plan LAVHBS. Plan After discussing the patient's diagnosis and treatment plan options, patient wishes to proceed with surgical management. I have discussed with the patient the risks, benefits, and alternatives of the procedure which include but are not limited to risks of anesthesia, bleeding, infection, possible damage to bowel, bladder, or surrounding vasculature which could lead to additional surgery to evaluate any complications. Patient agrees to procedure and wishes to proceed. ACOG/uptodate references given for additional information regarding procedure. 08/06/25 1055 <Electronically signed by Olga Yoon MD> Date Olga Yoon MD
[2025-08-13] VITALS (21 sets, daily range): BP systolic 104–141; BP diastolic 52–89; PULSE 54–89; RESP 10–26; TEMP 36.1–36.9; O2SAT 92–100; BMI 30.5
--- OUTSIDE RECORDS SUMMARY | 2025-08-13 05:31 | XMS RPT_ITS | CCD ---
Author Organization [facility] Care Team Providers Care Desktop Support Specialist Name Role Phone Unavailable Primary Care Provider Unavailabl e Care Physician, No Primary Primary Care Provider Unavailable Care Physician, No Primary Referring Provider Un available Jeovanny Leroy Attending Provider Jeovanny Leroy Referring Provider Car LORENZ, Dr. Espinoza Attending Provider Car LORENZ, Dr. Espinoza Referring Provider Care Physician, No Primary Primary Care Physicia n Unavailable Jeovanny Leroy Attending Physician [phone] Car LORENZ, Dr. Espinoza Attending Physician Care Physician, No Primary Primary Care Unava ilable Olga Yoon Attending Unavailable Care Physician, No Primary Referring Unava ilable Care Physician, No Primary Referring Unava ilable Arash Gill Attending Unavailable Care Physician, No Primary Primary Care Unava ilable Care Physician, No Primary Referring Unava ilable Jeovanny Leroy Attending Unavailable Care Physician, No Primary Primary Care Unava ilable Care Physician, No Primary Referring Unava ilable Care Physician, No Primary Primary Care Unava ilable Olga Yoon Attending Unavailable Jeovanny Leroy Attending Unavailable Care Physician, No Primary Primary Care Unava ilable Care Physician, No Primary Referring Unava ilable Care Physician, No Primary Primary Care Unava ilable Olga Yoon Attending Unavailable Jeovanny Leroy Attending Unavailable Jeovanny Leroy Referring Unavailable Care Physician, No Primary Primary Care Unava ilable Care Physician, No Primary Primary Care Unava ilOlga Villegas Attending Unavailable Olga Yoon Referring Unavailable Care Physician, No Primary Primary Care Unava ilable Sherryony, Olga Attending Unavailable Care Physician, No Primary Primary Care Unava ilOlga Villegas Attending Unavailable Olga Yoon Referring Unavailable Allergies Allergy Classification Reported Allergen(s) Allergy Type Date of Onset Reaction(s) Facility (8 sources) Titanium; Translations: [TITANIUM] Drug Allergy 01-21-2013 [facility] (6 sources) bee venom protein (honey bee) Allergy to substance 02-03-2025 Swelling [facility] (1 source) titanium Drug allergy (disorder) 04-24-2025 [facility] Repository (1 source) bee venom protein (honey bee) Drug allergy (disorder) 04-24-2025 [facility] Repository Medications Current Medications Medication Drug Class(es) Dates Sig (Normalized) Sig (Original) amoxicillin 500 mg oral capsule (14 sources) Penicillin-class Antibacterial Start: 11-22-2024 End: 12-02-2024 take 1 capsule by mouth twice daily amoxicillin (AMOXIL) 500 mg capsule Take 1 capsule by mouth two times a day for 10 days. 20 capsule 11/22/2024 12/02/2024 Active Start: 07-20-2023 End: 10-01-2024 take 1 capsule by mouth twice daily Amoxicillin 500 mg capsule Discontinued 500 mg PO TWICE A DAY 20 July 20, 2023 1:00am October 01, 2024 6:06pm Acute pharyngitis Acute pharyngitis, unspecified Start: 11-09-2022 End: 11-19-2022 take 1 capsule by mouth three times daily Amoxicillin 500 mg capsule Discontinued 500 mg PO THREE TIMES A DAY 30 10 0 November 09, 2022 12:00am November 18, 2022 12:00am November 19, 2022 12:04am Start: 10-07-2019 take 1 tablet by janelle th twice daily amoxicillin (AMOXIL) 875 mg tablet Take 875 mg by mouth twice daily. 10/07/2019 Active gjaeqyhuesBVXVC-zbbmif-yybdz linda (BMX 1:1:1) 1:1:1 liqd (1 source) Start: 10-12-2019 hriuqbeqztJEKGF-dulfzv-mgmql linda (BMX 1:1:1) 1:1:1 liqd Mix in equal amounts - 1 T every 2hrs as needed for mouth pain, Swish/swallow or expectorate. (8oz) 240 mL 10/12/2019 Active Ethinyl Estradiol / Ferrous fumarate / Norethindrone (1 source) Estr ogen Start: 06-08-2011 take 1 tabl et by mout h once mindy y Norethin Anuj-Eth Estrad-FE (LOESTRIN FE 1.5/30) 1.5-30 mg-mcg ORAL tablet Take 1 tablet by mouth once daily. 0 06/08/2011 Active Completed/Discontinued Medications Medication Drug Class(es) Dates Sig (Normalized) Sig (Original) ferrous sulfate 325 mg oral tablet (6 sources) Start: 04-17-2018 End: 11-09-2022 take 1 tablet by mouth once daily Ferrous Sulfate 325 MG tablet Discontinued 325 mg PO DAILY@0800 April 17, 2018 12:00am November 09, 2022 10:21am fluconazole 150 mg oral tablet (4 sources) Azole Antifungal Start: 04-24-2025 End: 04-24-2025 take 1 tablet by mouth once Fluconazole 150 mg tablet Discontinued 150 mg PO ONCE April 24, 2025 12:00am April 24, 2025 10:30am ibuprofen 600 mg oral tablet (6 sources) Nonsteroidal Anti-inflammatory Drug Start: 04-18-2018 End: 11-09-2022 take 1 tablet by mouth four times daily Ibuprofen 600 MG tablet Discontinued 600 mg PO 4 TIMES DAILY 30 1 April 18, 2018 12:00am November 09, 2022 10:20am pain or cramping nitrofurantoin, macrocrystals 25 mg / nitrofurantoin, monohydrate 75 mg oral capsule (5 sources) Nitrofuran Antibacterial Start: 04-22-2025 End: 04-27-2025 take 1 capsule by mouth every twelve hours at mealtime Nitrofurantoin Monohyd/M-Cryst (Macrobid) 100 mg capsule Discontinued 100 mg PO Q12H 10 5 0 April 22, 2025 12:00am April 26, 2025 12:00am April 27, 2025 12:12am must administer with a meal/food oxyCODONE hydrochloride 5 mg oral tablet (6 sources) Opioid Agonist Start: 04-18-2018 End: 11-09-2022 take 5-10 mg by mouth every four hours as needed for pain Oxycodone 5 MG tablet Discontinued 5 - 10 mg PO EVERY 4 HOURS NEEDED as needed for Mod-Severe Pain (4-10) 28 7 0 April 18, 2018 12:00am November 09, 2022 10:20am Postoperative pain Other acute postprocedural pain predniSONE 10 mg oral tablet (6 sources) Start: 02-03-2025 End: 02-13-2025 take 4 tablets by mouth once daily, then take 3 tablets by mouth once daily, then take 2 tablets by mouth once daily, then take 1 tablet by mouth once daily Prednisone 10 mg tablet Discontinued 10 mg PO DAILY 30 0 February 03, 2025 12:00am February 13, 2025 3:06pm 4 tablets daily x3 days, then 3 tablets daily x3 days, then 2 tablets daily x3 days, then 1 tablet daily x3 days Prenat.Vits,Kit,Min -Iron-Folic ( Vitamin) 1 EACH tablet (6 sources) Start: 04-17-2018 End: 11-09-2022 Prenat.Vits,Kit,Min -Iron-Folic ( Vitamin) 1 EACH tablet Discontinued 1 NMA PO DAILY April 17, 2018 12:00am November 09, 2022 10:20am Problems Active Problems Problem Classification Problem Date Documented Date Episodic/Chronic Disorders usually diagnosed in infancy, childhood, or adolescence (1 source) Attention deficit hyperactivity disorder, predominantly inattentive type; Translations: [Other specified behavioral and emotional disorders with onset usually occurring in childhood and adolescence] Onset: 07-04-2005 03-06-2024 Chronic Genitourinary symptoms and ill-defined conditions (2 sources) Unspecified abnormal findings in urine; Translations: [Dysuria] Onset: 04-22-2025 Episodic Headache; including migraine (6 sources) Cluster headache; Translations: [Cluster headache syndrome, unspecified, not intractable] Onset: 10-09-2024 02-13-2025 Chronic Other and unspecified benign neoplasm (6 sources) Mature cystic teratoma of right ovary; Translations: [Benign neoplasm of right ovary] 04-19-2018 Episodic Other female genital disorders (8 sources) Abnormal uterine bleeding; Translations: [Abnormal uterine and vaginal bleeding, unspecified] 04-24-2025 Chronic Comment on above: failed ocp in the [facility], 2 prev csection, tried natural remedies OTC. Other female genital disorders (1 source) Abnormal uterine and vaginal bleeding, unspecified; Translations: [Abnormal uterine and vaginal bleeding, unspecified] Onset: 06-30-2025 Chronic Other upper respiratory infections (14 sources) Sore throat symptom; Translations: [Acute pharyngitis, unspecified] 11-22-2024 Episodic Ovarian cyst (9 sources) Cyst of ovary; Translations: [Unspecified ovarian cyst, unspecified side] Onset: 06-19-2025 04-24-2025 Episodic Comment on above: dermoid in the past Polyhydramnios and other problems of amniotic cavity (6 sources) premature rupture of membranes with onset of labor within 24 hours of rupture; Translations: [ premature rupture of membranes, onset of labor within 24 hours of rupture, unspecified trimester] 04-18-2018 Episodic Past or Other Problems Problem Classification Problem Date Documented Da te Episodic/Chronic Residual codes; unclassified (1 source) Pain, unspecified; Translations: [Pain, unspecified] Onset: 10-09-2024 Episodic Results Test Name Value Interpretation Reference Range Facility Re Dye Hand Office Visit Reporton 06-19-2025 Re Dye Hand Office Visit Report [facility] [address], [address] [place] [address] OFFICE VISIT Date of Service: 06/19/25 MR#: [id number] Acct: [id number] Name: GOGO WELDON Rep #: [id number] : 1990 Provider: Dr. Olga kaminski MD Age/Sex: 34/F Location: [facility] [place] Status: Signed Intake Vital Signs 04/24/25 10:29 06/19/25 13:32 Height 5 ft 6 in 5 ft 6 in Weight: 207 lb 8 oz BMI 33.5 BP 112/66 Intake Visit Reasons: EMB-AUB F/U Proposal Development Manager Required: No Is patient in pain?: Yes (cramping) Allergies titanium Allergy (Severe, Verified 04/24/25 10:30) Hives bee venom protein (honey bee) Allergy (Mild, Verified 04/24/25 10:30) Swelling Medications ???Medication ???Instructions ???Recorded ???Confirmed ???Type NK 06/19/25 06/19/25 History Post menopausal: No Patient : No : No PFSH PFSH Medical History Dermoid cyst of both ovaries Migraine-cluster headache syndrome Acute streptococcal pharyngitis Anemia Surgical History [place] teeth extracted H/O ovarian cystectomy Previous section Family History Grandmother Asthma Cancer salivary glands Diabetes Grandfather COPD (chronic obstructive pulmonary disease) Bladder cancer, Onset Age: 75 paternal Skin cancer paternal Lung cancer, Onset Age: 70 Sister Endometriosis Mother Thyroid disorder Anxiety Depression Other CVA (cerebral vascular accident) Social History adopted: No household members: significant other and children number of children: 2 current occupational status: employed current occupation: [employer] Smoking Status: Former smoker alcohol intake: never substance use type: does not use what type of physical activity do you participate in: none seatbelt use: sometimes do you feel safe at home: Yes additional social history: Ofelia Adan Patient has 2 kids, Loco has 3 kids History 3 Elective abortions Hx Para 2 Spontaneous abortions 1 Hx # Term Pregnancies Ectopic pregnancies Hx # Pregnancies Multiple births # of living children 2 Past Pregnancies Del. Date Name GA/Weeks Outcome Route Bth Weight Gen Labor Lgth Anesthesia Del Locatn Provider FOB Unknown 2016 7 spontaneous Unknown 2014 Michael live - full term Unknown 2017 Hay live - HPI EMB-AUB F/U Details: The patient is a 34-year-old female with a history of heavy and irregular menstrual bleeding presenting for follow-up. Menstrual History - Reports heavy and irregular menstrual bleeding, with periods occurring once a month but lasting two weeks each time. - During menstruation, she changes a pad or tampon every couple of hours and experiences significant cramping. - Has tried control pills in the past, which reportedly worsened her symptoms, and natural remedies, which were ineffective. Past Diagnostic Results - Blood counts: Lower end of normal. - Thyroid function: Normal. - Pelvic ultrasound: Uterus slightly enlarged at 10 cm (normal 6-8 cm), endometrial lining of medium thickness, no significant fibroids, ovaries appear normal with follicles, no evidence of dermoid cysts. Past Surgical History - Two previous C-sections. 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 ROS Const Constitutional: Denies fatigue, weight gain or weight loss ENT ENT: Reports system reviewed and no additional complaints, except as documented Cardio Card: Denies chest pain Resp Resp: Denies cough or dyspnea GI GI: Reports as per HPI; Denies abdominal pain, constipation, nausea or vomiting : Denies nipple discharge, urinary frequency, urinary incontinence, urinary hesitancy, urinary urgency, vaginal discharge, vaginal dryness, vaginal odor or vaginal pruritus Musc Musc: Denies arthralgias, back pain or muscle weakness Skin Skin/Breast: Denies alopecia, change in hair, dry skin, breast mass, breast pain, breast skin changes or nipple discharge Neuro Neuro: Reports system reviewed and no additional complaints, except as documented Psych Psych: Reports system reviewed and no additional complaints, except as documented Endo Endo: Denies cold intolerance, excessive sweating, heat intolerance or polydipsia Arnold/Lymph Hematologic/Lymphat ic: Denies easy bleeding, Denies easy bruising and Denies lymphadenopathy Exam Const General: cooperative, healthy appearing, comfortable, no acute distress and well developed Orientation: alert HENCO Head: normal to inspection and normoc (more content not included)... Normal [facility] Surgery Specimen Level Gui 06-19-2025 Surgery Specimen Level IV ----- Patient Age/Sex Location Account Attending Physician ALEXANDRA WELDONVIA KISHA 34/F [facility] [id number] Dr. Olga Yoon MD Specimen: [id number] Received: 06/19/25 Status: ZHAO Medeiros Num: [id number] Spec Type: ENDOM BX/C Shree Dr: Dr. Olga Yoon MD HEADER OPERATION: Endometrial biopsy PRE-OP DIAGNOSIS: Abnormal uterine bleeding TISSUE SUBMITTED: A- Endometrial tissue MICROSCOPIC DIAGNOSIS A. Endometrium, biopsy: - Secretory endometrium. MICROSCOPIC DESCRIPTION Slides are reviewed. GROSS DESCRIPTION A. Received in formalin labeled with the patient's name and date of is a 2.5 x 1.8 x 0.2 cm aggregate of pale munoz tissue fragments and mucoid material. Entirely submitted in 1 cassette. [place] 06/22/2025 CPT:82122 Patient Age/Sex Location Account Attending Physician GOGO WELDON 34/ [facility] [id number] Dr. Olga Yoon MD Signed (signatur e on file) Dr. Lupe Culver MD 06/26/25 1118 Normal [facility] Comment on above: Performed By: #### P SUIV #### [facility] Laboratory [address] [place], [place], [id number] Pelvic w/ Transvaginalon Pelvic w/ Transvaginal [facility] Imaging Services [address] [place], [place] [address] Pelvic w/ Transvaginal MR#: [id number] Acct: [id number] Name: GOGO WELDON Rep #: [id number] : 1990 F 34 From: Moe chavez MD PCP: Care Physician,No Primary Status: REG CLI Study: Pelvic w/ Transvaginal Date of Exam: 05/01/25 Exam# [id number] Ordering Dr: Olga Yoon PROCEDURE: PELVIC W/ TRANSVAGINAL REASON FOR EXAM: ABNORMAL UTERINE BLEEDING TECHNIQUE: Procedure Code: [id number] Modality: US Procedure: PELVIC W/ TRANSVAGINAL COMPARISON: None FINDINGS: LMP: April 22, 2025. Measurements: Uterus: 10.5 cm x 5.1 cm x 3.9 cm with a volume of 111.41 mL Endometrial Thickness: 9.9 mm Right Ovary: 4.6 cm x 3.2 cm x 3.5 cm with a volume of 27.23 mL. Left Ovary: 3.4 cm x 3.2 cm x 2.7 cm with a volume of 15.09 mL. TRANSABDOMINAL: Uterus: Unremarkable Endometrium: Hyperechoic. Right ovary: Small follicles in the peripheral aspect of the ovary.. Left ovary: Small follicles in the peripheral aspect of the ovary. Other: No large pelvic mass identified. Transvaginal sonography was performed to better visualize the endometrium. TRANSVAGINAL: Uterus: Retroverted. Endometrium: Normal echotexture. Right ovary: Normal size and echotexture. Left ovary: Normal size and echotexture. Other adnexal findings: None. Cul-de-sac: No free intraperitoneal fluid identified. Tenderness: US/Pelvic w/ Transvaginal IMPRESSION: NORMAL TRANSABDOMINAL AND TRANSVAGINAL PELVIC ULTRASOUND. Reading Location: [facility] CC: Dr. Olga Yoon MD; No Primary Care Physician Student Assistance Counselor: Signed [facility] [id number] 04-29-2025 [facility]. 2 [facility] Comment on above: Order Comment: [id number] 0 GC PCR/TRICH PCR URINE RMT Result Comment: TEST RESULTS LIMITS CHLAMYDIA BY DIEGO NEGATIVE NEGATIVE GONOCOCCUS BY DIEGO NEGATIVE NEGATIVE TRICH VAG BY DIEGO NEGATIVE NEGATIVE TESTING PERFORMED AT [facility]. ORIGINAL REPORT ON FILE IN LAB CONTAINS ADDITIONAL TEST SITE INFORMATION. Performed By: #### L 3410.9992, L3410.9994, M100.2200 #### [facility] [address] [place], [address] [id number] 04-28-2025 [facility] COMMENT Normal . [facility] Comment on above: Order Comment: [id number] 3 BACTERIAL VAGINOSIS SWAB RMT Result Comment: Test Ordered: [id number] NuSwab BV and Rock, DIEGO Test(s) 530396- Atopobium vaginae; 067266- BVAB 2; 606005- Megasphaera 1 was developed and its performance characteristics determined by [facility]. It has not been cleared or approved by the Food and Drug Administration. Test(s) 695258-Qvasvzu albicans, DIEGO; 887778- Rock glabrata, DIEGO was developed and its performance characteristics determined by [facility]. It has not been cleared or approved by the Food and Drug Administration. Atopobium vaginae Low - 0 Score =G Reference Range: . BVAB 2 Low - 0 Score =G Reference Range: . Megasphaera 1 Low - 0 Score =G Reference Range: . Calculate total score by adding the 3 individual bacterial vaginosis (BV) marker scores together. Total score is interpreted as follows: Total score 0-1: Indicates the absence of BV. Total score 2: Indeterminate for BV. Additional clinical data should be evaluated to establish a diagnosis. Total score 3-6: Indicates the presence of BV. Rock albicans, DIEGO Positive [A ] =G Reference Range: Negative Rock glabrata, DIEGO Negative =G Reference Range: Negative Performed at: =[facility] [id number] First Aid Officer: Brenda Burroughs MD, Phone: [phone] Performed at: - [address] [id number] First Aid Officer: Timo Alcantara PhD, Phone: [phone] Performed By: #### L 3410.9992, L3410.9994, M100.0 #### [facility] [address] [place], [place], [id number] Urine Cultureon 04-25-2025 [facility] Staphylococcus saprophyticus Oden Count >100,000 Staphylococcus saprophyticus: REACTION Doxycycline Islt BEVERLY <=0.5 Clindamycin.induced Susc Islt NEG Gentamicin Islt BEVERLY <=0.5 S Linezolid Islt BEVERLY 2 S Nitrofurantoin Islt BEVERLY <=16 S Oxacillin Susc Islt 2 R Tetracycline Islt BEVERLY <=1 S TMP SMX Islt BEVERLY <=10 S Vancomycin Islt BEVERLY <=0.5 S Normal [facility] Comment on above: Performed By: #### L 3410.9992, L3410.9994, M100.0 #### [facility] [address] [place], [place], [id number] Absolute lymphocyte countOrd ered By: Olga Yoon on 04-24-2025 Lymphocytes Auto (Unsp spec) [#/Vol] 1.76 10*3/uL 0.83-4.51 [facility] Absolute neutrophil countOrd ered By: Olga Yoon on 04-24-2025 Neutrophils (Bld) [#/Vol] 5.0 10*3/uL 2.0-7.7 [facility] Automated blood erythrocyte countOrdered By: Olga Yoon on 04-24-2025 RBC (Bld) [#/Vol] 4.57 10*6/uL Normal 4.2-5.4 [facility] Comment on above: Performed By: #### L 100.0100, L501.9520 #### [facility] [address] [place], [place], [id number] Automated blood hematocrit ( percentage)Ordered By: Olga Yoon on 04-24-2025 Hematocrit (Bld) [Volume fraction] 37.8 % Normal 37-47 [facility] Comment on above: Performed By: #### L 100.0100, L501.9520 #### [facility] [address] [place], [address] Automated lymphocyte count a s percentage of total leukocytesOrdered By: Olga Yoon on 04-24-2025 Lymphocytes/100 WBC Auto (Unsp spec) 24.3 % 19- [facility] Basophil percentageOrdered B y: Olga Yoon on 04-24-2025 Basophils/100 WBC (Bld) 0.6 % Normal 0-1 [facility] Comment on above: Performed By: #### L 100.0100, L501.9520 #### [facility] [address] [place], [address] CBC W/Diff, Automatedon 03-28 Absolute Lymph 1.76 X10 3/uL Normal 0.83-4.51 [facility] Comment on above: Performed By: #### L 100.0100, L501.9520 #### [facility] [address] [place], [address] Absolute Neut 5.0 X10 3/uL Normal 2.0-7.7 [facility] Comment on above: Performed By: #### L 100.0100, L501.9520 #### [facility] [address] [place], [address] IG% 0.400 Normal 0.0-0.9 [facility] Comment on above: Result Comment: IG% - Immature Granulocytes (promyelocytes, myelocytes and metamyelocytes) > 1% indicates that a LEFT SHIFT is Present. Performed By: #### L 100.0100, L501.9520 #### [facility] [address] [place], [address] Lymphocytes/100 WBC (Bld) 24.3 % Normal - [facility] Comment on above: Performed By: #### L 100.0100, L501.9520 #### [facility] [address] [place], [address] Nucleated RBC (Bld) [#/Vol] 0 10*3/uL Normal 0-5 [facility] Comment on above: Performed By: #### L 100.0100, L501.9520 #### [facility] [address] [place], [address] RDW SD 36.3 fl Normal 35.1-43.9 [facility] Comment on above: Performed By: #### L 100.0100, L501.9520 #### [facility] [address] [place], [address] Eosinophil percentageOrdered By: Olga Yoon on 04-24-2025 Eosinophils/100 WBC (Bld) 1.1 % Normal 0-5 [facility] Comment on above: Performed By: #### L 100.0100, L501.9520 #### [facility] [address] [place], [address] Erythrocyte distribution wid th ratioOrdered By: Olga Yoon on 04-24-2025 Erythrocyte distribution width (RBC) [Ratio] 12.0 % Normal 11.6-14.6 [facility] Comment on above: Performed By: #### L 100.0100, L501.9520 #### [facility] [address] [place], [address] Erythrocyte distribution wid th standard deviationOrdered By: Olga Yoon on 04-24-2025 Erythrocyte distribution width (RBC) [Ratio] 36.3 fl 35.1-43.9 [facility] Hemoglobin measurementOrdere d By: Olga Yoon on 04-24-2025 Hemoglobin (Bld) [Mass/Vol] 12.9 g/dL Normal 12.0-15.0 [facility] Comment on above: Performed By: #### L 100.0100, L501.9520 #### [facility] [address] [place], [address] Immature granulocytes/100 WB C Auto (Bld)Ordered By: Olga Yoon on 04-24-2025 Immature granulocytes/100 WBC (Bld) 0.400 % 0.0-0.9 [facility] Comment on above: IG% - Immature Granu locytes (promyelocytes, myelocytes and metamyelocytes) > 1% indicates that a LEFT SHIFT is Present. MCV (mean corpuscular volume ) determinationOrdered By: Olga Yoon on 04-24-2025 MCV (RBC) [Entitic vol] 82.7 fL Normal 81-99 [facility] Comment on above: Performed By: #### L 100.0100, L501.9520 #### [facility] [address] [place], [address] Mean corpuscular hemoglobin (MCH) determinationOrdered By: Olga Yoon on 04-24-2025 MCH (RBC) [Entitic mass] 28.2 pg Normal 27.0-32.0 [facility] Comment on above: Performed By: #### L 100.0100, L501.9520 #### [facility] [address] [place], [address] Mean corpuscular hemoglobin concentration (MCHC) determinationOrdered By: Olga Yoon on 04-24-2025 MCHC (RBC) [Mass/Vol] 34.1 g/dL Normal 32-36 [facility] Comment on above: Performed By: #### L 100.0100, L501.9520 #### [facility] [address] [place], [address] Mean platelet volume determi nationOrdered By: Olga Yoon on 04-24-2025 Platelet mean volume (Bld) [Entitic vol] 11.2 fL Normal 6.2-12.0 [facility] Comment on above: Performed By: #### L 100.0100, L501.9520 #### [facility] [address] [place], [address] Monocyte percentageOrdered B y: Olga Yoon on 04-24-2025 Monocytes/100 WBC (Bld) 5.0 % Normal 0-10 [facility] Comment on above: Performed By: #### L 100.0100, L501.9520 #### [facility] [address] [place], [address] Neutrophil percentageOrdered By: Olga Yoon on 04-24-2025 Neutrophils/100 WBC (Bld) 68.6 % Normal 47-70 [facility] Comment on above: Performed By: #### L 100.0100, L501.9520 #### [facility] [address] [place], [address] Nucleated red blood cell per centageOrdered By: Olga Yoon on 04-24-2025 Nucleated RBC/100 WBC (Bld) [Ratio] 0 % 0-5 [facility] Re Dye Hand Office Visit Reporton 04-24-2025 Re Dye Hand Office Visit Report [facility] [address], [address] [place] [address] OFFICE VISIT Date of Service: 04/24/25 MR#: [id number] Acct: [id number] Name: GOGO WELDON Rep #: [id number] : 1990 Provider: Dr. Olga kaminski MD Age/Sex: 34/F Location: [facility] [place] Status: Signed with Addenda ADDENDUM by Dr. Olga Yoon MD on 04/24/25 at 1102 Assessment and Plan Assessment and Plan (1) Abnormal uterine bleeding: Status: Acute Comment: failed ocp in the past, 2 prev csection, tried natural remedies OTC. (2) Ovarian cyst: Status: Acute Comment: dermoid in the past Orders: Orders CBC W/Diff, Automated Today N93.9 - Abnormal uterine and vaginal bleeding, unspecified Thyroid Stim Hormone (TSH) Today N93.9 - Abnormal uterine and vaginal bleeding, unspecified Pelvic w/ Transvaginal Today N93.9 - Abnormal uterine and vaginal bleeding, unspecified HPI HPI Narrative: The patient is a 34-year-old female presenting with abnormal uterine bleeding. Her menstrual periods extend for two weeks, with severe cramping and pain, especially on the second and third days, necessitating frequent changes of tampons or pads. This issue has been ongoing since the of her last child seven years ago. She has a history of ovarian cysts, including a previously removed dermoid cyst, and another cyst was detected on her other ovary post-childbirth. 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 She frequently experiences urinary tract infections and yeast infections, typically preceding her menstrual cycle. Past treatments included control pills, which worsened her symptoms, and natural remedies, which were ineffective. She has not had recent ultrasounds or blood tests to further assess her condition. Attestation: Documentation on this patient encounter was supported using ambient scribe technology/ voice AI technology. The patient consented to recording for the purpose of documenting the encounter. Provider reviewed content of the generated note prior to signature. 04/24/25 1102 Date Olga Yoon MD cc: * Signed Intake Vital Signs 07/20/23 09:47 02/03/25 08:12 02/13/25 15:04 04/24/25 10:28 04/24/25 10:29 Height 5 ft 6 in 5 ft 6 in 5 ft 6 in 5 ft 6 in 5 ft 6 in Weight: 208 lb 2 oz 207 lb 2 oz BMI 33.5 33.4 BP 115/79 124/78 H Intake Visit Reasons: HYSTERECTOMY CONSULT Proposal Development Manager Required: No Is patient in pain?: Yes (menstrual cramps) Allergies titanium Allergy (Severe, Verified 04/24/25 10:30) Hives bee venom protein (honey bee) Allergy (Mild, Verified 04/24/25 10:30) Swelling Medications ???Medication ???Instructions ???Recorded ???Confirmed ???Type nitrofurantoin 100 mg PO Q12H 5 days #10 caps 04/24/25 Rx monohydrate/macrocr ystals 100 mg capsule (Macrobid) Is last menstrual period known: Yes Last Menstrual Period: 04/22/25 Post menopausal: No Patient : No : No PFSH Medical History Dermoid cyst of both ovaries Migraine-cluster headache syndrome Acute streptococcal pharyngitis Anemia Surgical History [place] teeth extracted H/O ovarian cystectomy Previous section Family History Grandmother Asthma Cancer salivary glands Diabetes Grandfather COPD (chronic obstructive pulmonary disease) Bladder cancer, Onset Age: 75 paternal Skin cancer paternal Lung cancer, Onset Age: 70 Sister Endometriosis Mother Thyroid disorder Anxiety Depression Other CVA (cerebral vascular accident) Social History adopted: No household members: significant other and children number of children: 2 current occupational status: employed current occupation: [employer] Smoking Status: Former smoker alcohol intake: never substance use type: does not use what type of physical activity do you participate in: none seatbelt use: sometimes do you feel safe at home: Yes additional social history: Ofelia Adan Patient has 2 kids, Loco has 3 kids HPI HYSTERECTOMY CONSULT Details: GOGO WELDON is a 34 year old who presents for Female Reproductive History Last Menstrual Period: 04/22/25 Menopausal Symptoms: No night sweats History 3 Elective abortions Hx Para 2 Spontaneous abortions 1 Hx # Term Pregnancies Ectopic pregnancies Hx # Pregnancies Multiple births # of living children 2 Past Pregnancies Del. Date Name GA/Weeks Outcome Route Bth Weight (more content not included)... Normal [facility] Platelet countOrdered By: Karen Yoon on 04-24-2025 Platelets (Bld) [#/Vol] 256 10*3/uL Normal 150-450 [facility] Comment on above: Performed By: #### L 100.0100, L501.9520 #### [facility] [address] [place], [address] TSH DL <= 0.005 mIU/L QnOrde red By: Olga Yoon on 04-24-2025 TSH Qn 1.380 uIU/mL 0.300-4.200 [facility] Thyroid Stim Hormone (TSH)on 04-24-2025 TSH 1.380 uIU/mL Normal 0.300-4.200 [facility] Comment on above: Performed By: #### L 100.0100, L501.9520 #### [facility] [address] [place], [address] White blood cell (WBC) count Ordered By: Olga Yoon on 04-24-2025 WBC (Bld) [#/Vol] 7.3 10*3/uL Normal 4.4-11.0 [facility] Comment on above: Performed By: #### L 100.0100, L501.9520 #### [facility] [address] [place], [address] Urine cultureOrdered By: Juan Jose Davis on 04-23-2025 Bacteria identified Cx Nom (U) Staphylococcus saprophyticus Abnormal [facility] - Chemistry and C hemistry - challengeOrdered By: Jeovanny Davis on 04-22-2025 HCG ( test) Ql (U) Negative [facility] Bilirubin Ql (U) Negative [facility] Glucose Ql (U) Negative [facility] Ketones Ql (U) Negative [facility] pH (U) 7.5 [pH] [facility] Specific gravity (U) [Rel density] 1.010 [facility] Urobilinogen (U) [Mass/Vol] Negative [facility] - Hematology and Cell countsOrdered By: Jeovanny Davis on 04-22-2025 Hemoglobin Ql (U) Negative [facility] - Specimen inform ationOrdered By: Jeovanny Davis on 04-22-2025 Clarity (U) Clear [facility] Color (U) YELLOW [facility] - UrinalysisOrder ed By: Jeovanny Davis on 04-22-2025 Nitrite Ql (U) Negative [facility] Protein Ql (U) Trace [facility] No Panel InformationOrdered By: Jeovanny Davis on 04-22-2025 Urine Leukocytes Positive [facility] Urine Non-Hemolyzed Blood Small [facility] Urgent Care Visit Reporton 0 04-22-2025 Urgent Care Visit Report [facility] [address] [place] [address] OFFICE VISIT Date of Service: 04/22/25 MR#: [id number] Acct: [id number] Name: GOGO WELDON Rep #: [id number] : 1990 Provider: MARILEE Posey Age/Sex: 34/F Location: [facility] [place] Status: Signed Intake Vital Signs 02/13/25 15:04 Height 5 ft 6 in BP 112/68 Blood Pressure Location Lt brachial Position Sitting Respiration 15 Pulse 81 Pulse Source NIBP Temp 98.1 F Temp Source Oral Pulse Oximetry (%) 99 Oxygen Delivery Method room air Intake Visit Reasons: CONCERN FOR UTI Chief Complaint: dysuria, vaginal complaints Proposal Development Manager Required: No Is patient in pain?: Yes Allergies titanium Allergy (Severe, Verified 04/22/25 17:25) Hives bee venom protein (honey bee) Allergy (Mild, Verified 04/22/25 17:25) Swelling Medications ???Medication ???Instructions ???Recorded ???Confirmed ???Type nitrofurantoin 100 mg PO Q12H 5 days #10 caps 04/22/25 Rx monohydrate/macrocr ystals 100 mg capsule (Macrobid) Is last menstrual period known: No Post menopausal: No Patient : No Have you fallen in the past year?: No Nurse's Note: dysuria, vaginal itching and burning, red milky discharge without odor. denies fever, abd pain. denies new partners. s/s x 3 days. [facility] Medical History (Updated 02/24/25 @ 08:59 by Yoselyn Crowley) Dermoid cyst of both ovaries Migraine-cluster headache syndrome Acute streptococcal pharyngitis Anemia Surgical History (Updated 02/24/25 @ 08:59 by Yoselyn Crowley) [place] teeth extracted H/O ovarian cystectomy Previous section Family History (Updated 02/24/25 @ 09:01 by Yoselyn Crowley) Grandmother Asthma Cancer salivary glands Diabetes Grandfather COPD (chronic obstructive pulmonary disease) Bladder cancer, Onset Age: 75 paternal Skin cancer paternal Lung cancer, Onset Age: 70 Sister Endometriosis Mother Thyroid disorder Anxiety Depression Other CVA (cerebral vascular accident) Social History (Updated 02/24/25 @ 08:59 by Yoselyn Crowley) adopted: No household members: significant other and children number of children: 2 current occupational status: employed current occupation: [employer] Smoking Status: Former smoker alcohol intake: never substance use type: does not use what type of physical activity do you participate in: none seatbelt use: sometimes do you feel safe at home: Yes additional social history: Ofelia Adan Patient has 2 kids, Loco has 3 kids Female Reproductive History Menstrual Ab spontaneous: 1 HPI HPI Chief Complaint: dysuria, vaginal complaints Details: GOGO WELDON, is a 34 F who presents to the office today for initial evaluation at [facility] for approximately 3 day history of dysuria, vaginal itching and burning, red milky discharge without odor. No complaints of fever, chills, sweats, lightheadedness/diz ziness, nausea/vomiting, chest pain/shortness of breath/dyspnea on exertion, abdominal pain, or midback pain. Monogamous sexual relations with presumed monogamous partner. No otvh-uop-njcszwn medications have been taken to assist. No other associated symptoms and no alleviating/aggrava ting factors. ROS Const Constitutional: No other (As above) Exam Const General: cooperative, healthy appearing and no acute distress Orientation: alert, awake Chest Chest palpation inspection: normal inspection of the chest Resp Effort Inspection: normal respiratory effort and able to speak in complete sentences Auscultation: Bilateral: Clear to Auscultation Cardio Palpation: normal PMI Rate: regular rate Rhythm: regular rhythm Heart Sounds: S1 normal, S2 normal, no gallops, no murmurs and no rubs Pulses: radial pulses present GI Inspection: normal to inspection Palpation: soft and tender suprapubic (Patient describes upon self-palpation) General: No CVA tenderness Skin General: no rashes or lesions noted Neuro General: patient alert, patient awake Cognition: normal cognition Speech: speech normal Psych Appearance: grossly normal Mental Status: mental status grossly normal Mood: congruent mood Affect: normal affect Speech and Movement: speech and movement normal Attitude: cooperative Diagnoses Urinary tract infection w/ hematuria N39.0 Assessment and Plan Assessment and Plan (1) Urinary tract infection: Status: Acute Plan: See POC results; urine sent to lab for C/S, gc, chlamydia, trichomoniasis, bv, rock. Macrobid as prescribed today. Supportive measures as instructed today. Follow-up with PCP in 3 to 5 days should symptoms not improve, sooner should symptoms only worsen or any other concerns develop. Patient states acknowledging (more content not included)... Normal [facility] Re Dye Hand Office Visit Reporton 02-13-2025 Re Dye Hand Office Visit Report [facility] [address], [address] [place] [address] OFFICE VISIT Date of Service: 04/24/25 MR#: [id number] Acct: [id number] Name: GOGO WELDON Rep #: [id number] : 1990 Provider: Dr. Olga kaminski MD Age/Sex: 34/F Location: [facility] [place] Status: Signed Intake Vital Signs 07/20/23 09:47 02/03/25 08:12 02/13/25 15:04 Height 5 ft 6 in 5 ft 6 in 5 ft 6 in Weight: 208 lb 2 oz BMI 33.5 BP 115/79 Intake Visit Reasons: HYSTERECTOMY CONSULT Proposal Development Manager Required: No Is patient in pain?: No (random left breast pain) Feel stressed/tense/nerv ous/anxious/difficu lty sleeping: rather much (in the process of moving) Allergies titanium Allergy (Severe, Verified 02/13/25 15:06) Hives bee venom protein (honey bee) Allergy (Mild, Verified 02/13/25 15:06) Swelling Is last menstrual period known: Yes Last Menstrual Period: 01/27/25 (periods are irregular, heavy and lots of clots) Post menopausal: No Patient : No : No PFSH Medical History (Updated 02/13/25 @ 15:09 by Donna Glaser) Migraine-cluster headache syndrome Acute streptococcal pharyngitis Anemia Surgical History (Updated 02/13/25 @ 15:10 by Donna Glaser) [place] teeth extracted H/O ovarian cystectomy Previous section Family History (Updated 02/13/25 @ 15:14 by Donna Glaser) Grandmother Asthma Cancer salivary glands Diabetes Grandfather COPD (chronic obstructive pulmonary disease) Bladder cancer, Onset Age: 75 paternal Skin cancer paternal Lung cancer, Onset Age: 70 Sister Endometriosis Mother Thyroid disorder Other CVA (cerebral vascular accident) Social History (Updated 02/13/25 @ 15:16 by Donna Glaser) adopted: No household members: significant other and children number of children: 2 current occupational status: employed current occupation: [employer] Smoking Status: Former smoker alcohol intake: never substance use type: does not use seatbelt use: sometimes do you feel safe at home: Yes additional social history: Ofelia Adan Patient has 2 kids, Loco has 3 kids HPI HYSTERECTOMY CONSULT Details: GOGO WELDON is a 34 year old who presents for hysterectoym ocnsult. patient had vitals taken and then doctor called for emergency, will be rescheduled. Female Reproductive History Last Menstrual Period: 01/27/25 (periods are irregular, heavy and lots of clots) History 3 Elective abortions Hx Para 2 Spontaneous abortions 1 Hx # Term Pregnancies Ectopic pregnancies Hx # Pregnancies Multiple births # of living children 2 Past Pregnancies Del. Date Name GA/Weeks Outcome Route Bth Weight Gen Labor Lgth Anesthesia Del Locatn Provider FOB Unknown 2016 7 spontaneous Unknown 2014 Michael live - full term Unknown 2017 Hay live - Coding Level of Care Code No Charge 02/15/25 1222 Date Olga Coats Signature: Date (if applicable) CC: Normal [facility] Urgent Care Visit Reporton 0 02-03-2025 Urgent Care Visit Report [facility] [address] , [address] [place] [address] OFFICE VISIT Date of Service: 02/03/25 MR#: [id number] Acct: [id number] Name: GOGO WELDON Rep #: [id number] : 1990 Provider: MARILEE Posey Age/Sex: 34/F Location: [facility] [place] Status: Signed Intake Vital Signs 07/20/23 09:47 02/03/25 08:12 Height 5 ft 6 in 5 ft 6 in Weight: 206 lb 4 oz BMI 33.3 BP 110/78 Blood Pressure Location Lt brachial Position Sitting Respiration 18 Pulse 84 Pulse Source Monitor Temp 98.0 F Temp Source Oral Pulse Oximetry (%) 98 Oxygen Delivery Method room air Intake Visit Reasons: HIVES/RASH Chief Complaint: Rash Allergies titanium Allergy (Severe, Verified 02/03/25 08:13) Hives bee venom protein (honey bee) Allergy (Mild, Verified 02/03/25 08:13) Swelling Medications ???Medication ???Instructions ???Recorded ???Confirmed ???Type prednisone 10 mg tablet 10 mg PO DAILY #30 tabs 02/03/25 0 02/03/25 Rx PFSH Medical History Acute streptococcal pharyngitis Anemia Surgical History Previous section Social History Smoking Status: Former smoker alcohol intake: never HPI HPI Chief Complaint: Rash Details: GOGO WELDON, is a 34 F who presents to the office today for initial evaluation status allergic dermatitis skin reactive of unknown etiology w/ pruritic rash to BUE, anterior neck, anterior chest wall beginning 5 days ago after moving personal belongings to a new residence the same day. Patient states she has used ulqy-vrq-wnhakcy topical applications (? names) without relief of symptoms. No complaints of constricted/pruriti c airway or chest pain/shortness of breath/wheeze/dyspn ea on exertion. No other associated symptoms and no other alleviating/aggrava ting factors. ROS Const Constitutional: No other (As above) Exam Const General: cooperative, healthy appearing and no acute distress Nutritional Appearance: average body habitus Orientation: alert, awake and oriented x3 HENMT Head: normal to inspection Ears: hearing grossly normal bilaterally, external ears normal, TM's normal bilaterally and EAC's normal Nose: external nose normal, nares normal, septum normal and no nasal discharge Face and sinus: normal facial exam, sinuses nontender and face symmetric Mouth: oral mucosae normal, lip normal, tongue normal and oropharynx normal Throat: posterior oropharynx normal, tonsils normal, uvula midline and no postnasal drainage Eyes General: appearance normal, both eyes and all related structures Neck Neck: normal visual inspection, full ROM, no lymphadenopathy, no meningeal signs and supple Neck mass: No Thyroid: thyroid normal Lymphatic: no lymphadenopathy noted Chest Chest palpation inspection: normal inspection of the chest Resp Effort Inspection: normal respiratory effort and able to speak in complete sentences Auscultation: Bilateral: Clear to Auscultation Cardio Palpation: normal PMI Rate: regular rate Rhythm: regular rhythm Heart Sounds: S1 normal, S2 normal, no gallops, no murmurs and no rubs Pulses: radial pulses present GI Inspection: normal to inspection Skin General: no rashes or lesions noted Other: Except clustered vesicular rash to BUE, anterior neck, anterior chest wall Neuro General: patient alert, patient awake and patient oriented x3 Cognition: normal cognition Speech: speech normal Extrem General: normal to inspection Psych Appearance: grossly normal Mental Status: mental status grossly normal Mood: congruent mood Affect: normal affect Speech and Movement: speech and movement normal Attitude: cooperative Diagnoses Allergic Contact dermatitis L23.9 Assessment and Plan Assessment and Plan (1) Allergic Contact dermatitis: Status: Acute Plan: Prednisone as prescribed today. Supportive measures as instructed today. Follow-up with PCP in 3 to 5 days should symptoms not improve, ED sooner should symptoms worsen or any other concerns develop. Patient states acknowledging understanding all the above. Coding Level of Care Code Off vis,est,level 3 Assessment and Plan Assessment and Plan Medications: New prednisone 4 tablets daily x3 days, then 3 tablets daily x3 days, then 2 tablets daily x3 days, then 1 tablet daily x3 days 10 mg PO DAILY 30 tabs 0RF 02/03/25 0822 Date Jeovanny Coats Signature: Date (if applicable) CC: [facility] MIRELLAon 11-22-2024 CNOV Office Visit (UCWSTR) ---- GOGO WELDON ([id number]) 1990 F Date Time Provider Department 11/22/24 10:45 AM ROSALVA REAVES [facility] During your visit today, we recorded the following information about you: Temperature Pulse Respiration Blood pressure 98.9 degrees 104/minute 16/minute 124/72 Weight 88.2 kg Rosalva Reaves APRN.FINGERNAIL FORMER 11/22/2024 11:06 AM Signed Subjective HPI Nontoxic-appearing 34-year-old female presents urgent care chief complaint sore throat. Duration of symptoms 2 days. Associated symptoms sore throat. Presents today for evaluation. Strep throat exposure. OTC medications none recently. No difficulty swallowing and secretion decreased range of motion neck or trismus. No high fevers. Past medical history prescription medications allergies reviewed. .Patient presents with: Sore Throat: x 2 days PAST MEDICAL HISTORY Diagnosis Date Attention deficit disorder without mention of hyperactivity 07/04/2005 History reviewed. No pertinent surgical history. ALLERGIES Titanium MEDICATIONS amoxicillin (AMOXIL) 875 mg tablet Take 875 mg by mouth twice daily. (Patient not taking: Reported on 11/22/2024) diphenhydrAMINE-maa lox-lidocaine (BMX 1:1:1) 1:1:1 liqd Mix in equal amounts - 1 T every 2hrs as needed for mouth pain, Swish/swallow or expectorate. (8oz) (Patient not taking: Reported on 11/22/2024) Norethin Anuj-Eth Estrad-FE (LOESTRIN FE ) 1.5-30 mg-mcg ORAL tablet Take 1 tablet by mouth once daily. (Patient not taking: Reported on 11/22/2024) FAMILY HISTORY Problem Relation Age of Onset Hypertension Other MATERNAL AND PATERNAL SIDES Heart Other MATERNAL AND PATERNAL SIDES Cancer Other MATERNAL AND PATERNAL SIDES Diabetes Other MATERNAL AND PATERNAL SIDES Social History Tobacco Use Smoking status: Former Current packs/day: 0.00 Types: Cigarettes Quit date: 08/27/2019 Years since quittin.2 Smokeless tobacco: Never Tobacco comments: about 1cig daily Vaping Use Vaping status: Former BP 124/72 Pulse 104 Temp 37.2 ?C (98.9 ?F) Resp 16 Wt 88.2 kg (194 lb 7.1 oz) LMP 09/20/2019 (Approximate) SpO2 97% Hr 96 Review of Systems Constitutional: Negative for chills, fever and malaise/fatigue. HENT: Positive for sore throat. Negative for congestion, ear discharge, ear pain and sinus pain. Eyes: Negative for blurred vision, pain, discharge and redness. Respiratory: Negative for cough, hemoptysis, sputum production, shortness of breath, wheezing and stridor. Cardiovascular: Negative for chest pain. Gastrointestinal: Negative for abdominal pain, diarrhea and vomiting. Musculoskeletal: Negative for myalgias. Skin: Negative for itching and rash. Neurological: Negative for dizziness and headaches. Objective Physical Exam Constitutional: General: She is not in acute distress. Appearance: She is not diaphoretic. HENT: Head: Normocephalic. Jaw: No trismus, tenderness, swelling or pain on movement. Nose: Congestion present. Mouth/Throat: Mouth: Mucous membranes are moist. Pharynx: Oropharynx is clear. Uvula midline. Posterior oropharyngeal erythema present. No pharyngeal swelling, oropharyngeal exudate or uvula swelling. Eyes: Conjunctiva/sclera: Conjunctivae normal. Pupils: Pupils are equal, round, and reactive to light. Cardiovascular: Rate and Rhythm: Normal rate and regular rhythm. Heart sounds: Normal heart sounds. Pulmonary: Effort: Pulmonary effort is normal. No tachypnea, accessory muscle usage or respiratory distress. Breath sounds: Normal breath sounds. No stridor. No wheezing, rhonchi or rales. Abdominal: General: There is no distension. Palpations: Abdomen is soft. Tenderness: There is no abdominal tenderness. There is no guarding or rebound. Musculoskeletal: Cervical back: Normal range of motion and neck supple. No edema, erythema, rigidity or tenderness. No pain with movement. Normal range of motion. Lymphadenopathy: Cervical: No cervical adenopathy. Skin: General: Skin is warm and dry. Neurological: Mental Status: She is alert and oriented to person, place, and time. ASSESSMENT/PLAN: 1. Sore throat - ICD9: 462, ICD10: J02.9 (primary diagnosis) - STREP A MOLECULAR (POC) 2. Strep pharyngitis - ICD9: 034.0, ICD10: J02.0 Diagnosed strep pharyngitis. Placed on amoxicillin. Patient was educated on supportive therapies. Patient will follow up with primary care provider as needed. Patient was instructed to immediately proceed to emergency room for any new, worsening, or symptoms lasting longer than anticipated. The patient's clinical presentation is otherwise unremarkable at this time. Based on exam and clinical finding, the patient is stable for discharge. Plan of care was discussed with patient. Patient verbalizes understanding and agrees to plan of care. This note was generated us (more content not included)... Normal [facility] STREP A MOLECULAR (POC)on Interpretation and review of laboratory results Abnormal [facility] Procedural Control Valid [facility] Strep A (POCT) Positive Abnormal Negative [facility] Urgent Care Visit Reporton 0 10-01-2024 Urgent Care Visit Report [facility] [address], [address] [place] [address] OFFICE VISIT Date of Service: 10/01/24 MR#: [id number] Acct: [id number] Name: GOGO WELDON Rep #: [id number] : 1990 Provider: REN Gill Age/Sex: 34/F Location: [facility] [place] [facility] Status: Signed Intake Vital Signs 07/20/23 09:47 10/01/24 17:06 Height 5 ft 6 in BP 134/72 H Blood Pressure Location Lt brachial Position Sitting Respiration 15 Pulse 75 Pulse Source NIBP Temp 98.0 F Temp Source Oral Pulse Oximetry (%) 98 Oxygen Delivery Method room air Intake Visit Reasons: MIGRAINE Chief Complaint: migraine Proposal Development Manager Required: No Is patient in pain?: Yes Allergies titanium Allergy (Severe, Verified 10/01/24 17:06) Hives bee venom protein (honey bee) Allergy (Mild, Verified 10/01/24 17:06) Swelling Is last menstrual period known: No Post menopausal: No Patient : No Have you fallen in the past year?: No Nurse's Note: migraine x 1 week with photophobia, sensitivity to sound, smells. denies N/V/dizziness. used to take Maxalt but has not had in a long time. [facility] Medical History Acute streptococcal pharyngitis Anemia Surgical History Previous section Social History Smoking Status: Former smoker alcohol intake: never HPI HPI Chief Complaint: migraine Details: GOGO WELDON, is a 34 F who presents to the office today for HPI: Patient presents today with complaints of a migraine headache which has been ongoing for approximately the last week. She notes that the headache is typical for her. She notes that her headache is typically resolved with Maxalt however she has not had a PCP in some time and no longer has this medication. She has been using [id number] medications with no relief. She notes photophobia but denies any fever or any other concerning issues. ROS: As noted in HPI Physical Exam: VITALS: Reviewed. GEN: Healthy appearing, well-developed, NAD. PSYCH: AOx3. Normal memory, mood, and affect. HEENT -Eyes: -No discharge or redness; -Ears: -Mouth and throat: Moist mucous membranes. NECK: CV: Regular rate and rhythm LUNGS: Normal respiratory effort. Lungs clear bilaterally. SKIN: Warm, well perfused. No skin rashes or abnormal lesions noted. MSK: Normal gait. NEURO: Ambulating with no limitations. Normal muscle strength and tone. No focal deficits. Office Meds ketorolac 30 mg/mL injection syringe Performing Provider: REN Gutierrez Performing Location: [facility] Administered by: Ada Goodrich on 10/01/24 17:13 Dose Route Admin Location Dispensed Lot Number Expiration Date NDC Man ufacturer 30 mg IM right deltoid 1.0 mL [id number] 05/27/25 21226-819-59 [employer] Coding Level of Care Code Off vis,est,level 3 Diagnoses Other migraine without status migrainosus, intractable G43.819 Intractability: intractable Migraine type: other Status migrainosus presence: without status migrainosus Assessment and Plan Assessment and Plan (1) Migraine headache: Qualifiers: Intractability: intractable Migraine type: other Status migrainosus presence: without status migrainosus Qualified Code(s): G43.819 - Other migraine, intractable, without status migrainosus Plan: Discussed with patient that we do not prescribe long-term headache medications from the urgent care. She will check at the front desk worker to possibly arrange for a local PCP to reestablish care and discuss long-term migraine medication. She was given a dose of Toradol here at the now [facility] and I did recommend adding Benadryl to her ibuprofen and/or Tylenol to see if this does not help reduce her symptoms. I also informed her that if symptoms do not improve she can go to the emergency department for further evaluation. Orders: Orders Ketorolac Injection Today R52 - Pain, unspecified Medications: New ketorolac 30 mg IM ONCE 1 mL 0RF pain R52 - Pain, unspecified Clinical Quality Measures Falls Risk Screening/Assistive Devices Have you fallen in the past year?: No 10/01/241714 Date Arash Gill NP-Binh Coats Signature: Date (if applicable) CC: Normal [facility] Vital Signs Date Time Vital Sign Value Performing Clinician Facility 04-24-2025 10: Body height 167.64 cm No Primary Care Physician [facility] 04-24-2025 10: Body mass index (BMI) [Ratio] 33.4 kg/m2 No Primary Care Physician [facility] 04-24-2025 10: Body weight 93.95 kg No Primary Care Physician [facility] 04-24-2025 10:28-0400 Diastolic blood pressure 78 mm[Hg] No Primary Care Physician [facility] 04-24-2025 10:28-0400 Systolic blood pressure 124 mm[Hg] No Primary Care Physician [facility] 02-13-2025 15:04-0400 Body temperature 98.1 [degF] No Primary Care Physician [facility] 02-13-2025 15:04-0400 Diastolic blood pressure 68 mm[Hg] No Primary Care Physician [facility] 02-13-2025 15:04-0400 Heart rate 81 /min No Primary Care Physician [facility] 02-13-2025 15:04-0400 Respiratory rate 15 /min No Primary Care Physician [facility] 02-13-2025 15:04-0400 SaO2% (BldA) [Mass fraction] 99 % No Primary Care Physician [facility] 02-13-2025 15:04-0400 Systolic blood pressure 112 mm[Hg] No Primary Care Physician [facility] 02-03-2025 08:12-0400 Body height 167.64 cm No Primary Care Physician [facility] 02-03-2025 08:12-0400 Body mass index (BMI) [Ratio] 33.3 kg/m2 No Primary Care Physician [facility] 02-03-2025 08:12-0400 Body temperature 98 [degF] No Primary Care Physician [facility] 02-03-2025 08:12-0400 Body weight 93.55 kg No Primary Care Physician [facility] 02-03-2025 08:12-0400 Diastolic blood pressure 78 mm[Hg] No Primary Care Physician [facility] 02-03-2025 08:12-0400 Heart rate 84 /min No Primary Care Physician [facility] 02-03-2025 08:12-0400 Respiratory rate 18 /min No Primary Care Physician [facility] 02-03-2025 08:12-0400 SaO2% (BldA) [Mass fraction] 98 % No Primary Care Physician [facility] 02-03-2025 08:12-0400 Systolic blood pressure 110 mm[Hg] No Primary Care Physician [facility] 11-22-2024 10:43-0400 Body temperature 98.91 [degF] Rosalva Reaves METALLURGICAL TECHNICIAN.FINGERNAIL FORMER Work Phone: [facility] 11-22-2024 10:43-0400 Body weight 88.2 kg Rosalvakeren Callahanyen METALLURGICAL TECHNICIAN.FINGERNAIL FORMER Work Phone: [facility] 11-22-2024 10:43-0400 Diastolic blood pressure 72 mm[Hg] Rosalva Callahanyen METALLURGICAL TECHNICIAN.FINGERNAIL FORMER Work Phone: [facility] 11-22-2024 10:43-0400 Heart rate 104 /min Rosalva Callahanyen METALLURGICAL TECHNICIAN.FINGERNAIL FORMER Work Phone: [facility] 11-22-2024 10:43-0400 Respiratory rate 16 /min Rosalva Callahanyen METALLURGICAL TECHNICIAN.FINGERNAIL FORMER Work Phone: [facility] 11-22-2024 10:43-0400 SaO2% (BldA) [Mass fraction] 97 % Rosalva Callahanyen METALLURGICAL TECHNICIAN.FINGERNAIL FORMER Work Phone: [facility] 11-22-2024 10:43-0400 Systolic blood pressure 124 mm[Hg] [facility] METALLURGICAL TECHNICIAN.FINGERNAIL FORMER Work Phone: [facility] Encounters Encounter Date Encounter Type Care Provider Facility Start: 08-13-2025 ambulatory No Primary Car e Physician Facility:[facility] Start: 06-19-2025 End: 06-19-2025 ambulatory No Primary Care Physician Facility:[facility] Start: 06-19-2025 End: 06-19-2025 ambulatory No Primary Care Physician Facility:[facility] Start: 05-01-2025 End: 05-01-2025 ambulatory No Primary Care Physician -[facility] Start: 05-01-2025 End: 05-01-[address] Olga Yoon MD -Ultrasound [facility] Work Phone: Start: 05-01-2025 End: 05-01-2025 ambulatory No Primary Care Physician Facility:[facility] Start: 04-24-2025 End: 04-24-[address] Olga Yoon MD -[facility] Work Phone: Start: 04-24-2025 End: 04-24-2025 ambulatory No Primary Care Physician -[facility] Start: 04-23-2025 End: 04-24-2025 ambulatory No Primary Care Physician -Laboratory Specimen Start: 04-23-2025 End: 04-23-2025 Patient encounter procedure Jeovanny HUNT -Laboratory Specimen Work Phone: Start: 04-22-2025 End: 04-22-2025 Patient encounter procedure Jeovanny HUNT -[facility] Work Phone: Start: 04-22-2025 End: 04-23-2025 ambulatory No Primary Care Physician -[facility] Start: 02-03-2025 End: 02-03-2025 Patient encounter procedure Jeovanny HUNT -[facility] Work Phone: Start: 02-03-2025 End: 02-03-2025 ambulatory No Primary Care Physician [facility] Work Phone: Start: 11-22-2024 End: 11-22-2024 ambulatory Facility[facility] Start: 11-22-2024 End: 11-22-2024 Office outpatient visit 25 minutes Rosalva Reaves APRN.FINGERNAIL FORMER Work Phone: [facility] Comment on above: Sore throat (Primary Dx); Strep pharyngitis Start: 10-01-2024 End: 10-01-2024 ambulatory No Primary Care Physician Facility:[facility] Procedures Date Procedure Procedure Detail Performing Clinician Start: 05-01-2025 Pelvic echography No Primary Care Physician Start: 04-23-2025 Procedure No Primary Care Physician Comment on above: Test Ordered: [id number] NuSwab BV and Adriane da, NAATest(s) 712890- Atopobium vaginae; 749067- BVAB 2;18000127- Megasphaera 1was developed and its performance characteristicsdetermined by [facility]. It has not been cleared or approvedby the Food and Drug Administration.Test(s) 101059-Gdijkfq albicans, DIEGO; 095403-Yclfrvz glabrata, NAAwas developed and its performance characteristicsdetermined by [facility]. It has not been cleared or approvedby the Food and Drug Administration. Atopobium vaginae Low - 0 Score =G Reference Range: . BVAB 2 Low - 0 Score =G Reference Range: . Megasphaera 1 Low - 0 Score =G Reference Range: .Calculate total score by adding the 3 individual bacterialvaginosis (BV) marker scores together. Total score isinterpreted as follows:Total score 0-1: Indicates the absence of BV.Total score 2: Indeterminate for BV. Additional clinical data should be evaluated to establish a diagnosis.Total score 3-6: Indicates the presence of BV.Rock albicans, DIEGO Positive [A ] =G Reference Range: NegativeCandida glabrata, DIEGO Negative =G Reference Range: NegativePerformed at: =[address] [id number] Director: Brenda Burroughs MD, Phone: [phone] at: [address] [id number] Director: Timo Alcantara PhD, Phone: [phone] TEST RESULTS LIMITSC HLAMYDIA BY DIEGO NEGATIVE NEGATIVEGONOCOCCUS BY DIEGO NEGATIVE NEGATIVETRICH VAG BY DIEGO NEGATIVE NEGATIVE TESTING PERFORMED AT [facility]. ORIGINAL REPORT ON FILE IN LAB CONTAINS ADDITIONAL TEST SITE INFORMATION. Start: 04-23-2025 Urine culture No Primary Care Physician Start: 11-22-2024 STREP A MOLECULAR (POC) Rosalva soliz APRN.FINGERNAIL FORMER Work Phone: Plan of Treatment Date Care Activity Detail Author Start: 05-01-2025 Pelvic echography Pelvic w/ Transvaginal [facility] Start: 05-01-2025 US Pelvis [facility] Start: 04-24-2025 CBC W Auto Differential panel - Blood [facility] Start: 04-24-2025 Thyroid stimulating hormone measurement [facility] Start: 04-23-2025 Bacteria identified in Urine by Culture Urine Culture [facility] Start: 04-23-2025 Procedure [facility] Start: 04-23-2025 [facility] Start: 04-27-2024 Covid-19 Vaccine ( season) Covid-19 Vaccine ( season) [facility] Start: 04-27-2024 Influenza vaccination Influenza Vaccine (#1) [facility] Start: 2013 Screening for malignant neoplasm of cervix Cervical Cancer Screening [facility] Start: 2011 Hepatitis B Vaccine (1 of 3 - 19+ 3-dose series) Hepatitis B Vaccine (1 of 3 - 19+ 3-dose series) [facility] Start: 2010 Anxiety Screening Anxiety Screening [facility] Start: 2010 Depression Screening Depression Screening [facility] Start: 2010 Hepatitis C screening Hepatitis C Screening [facility] Start: 2010 HIV screening HIV Screening [facility] Start: 2003 Urine microalbumin profile DTaP,Tdap,Td Vaccine (6 - Tdap) [facility] Erythrocyte mean corpuscular volume determination [facility] Hematocrit [Volume Fraction] of Blood [facility] Hemoglobin [Mass/vol ume] in Blood [facility] Leukocytes [#/volume ] in Blood [facility] Mean corpuscular hemoglobin concentration determination [facility] Mean corpuscular hemoglobin determination [facility] Neutrophil count [facility] Neutrophil percent differential count [facility] Platelets [#/volume] in Blood [facility] Procedure [facility] Red blood cell count [facility] Red cell distributio n width determination [facility] Urine culture [facility] US Pelvis [facility] Immunizations Immunization Date Immunization Notes Care Provider Pattie barker 12-14-1997 diphtheria, tetanus toxoids and acellular pertussis vaccine Rosalva Reaves METALLURGICAL TECHNICIAN.FINGERNAIL FORMER Work Phone: [facility] 12-14-1997 poliovirus vaccine, inactivated Rosalva Reaves METALLURGICAL TECHNICIAN.FINGERNAIL FORMER Work Phone: [facility] 01-17-1994 chicken pox (disease) Jeffre y Pendlebury METALLURGICAL TECHNICIAN.FINGERNAIL FORMER Work Phone: [facility] 09-26-1993 diphtheria, tetanus toxoids and acellular pertussis vaccine Rosalva Callahanbury METALLURGICAL TECHNICIAN.FINGERNAIL FORMER Work Phone: [facility] 09-26-1993 haemophilus influenz ae type b vaccine, HbOC conjugate [facility] METALLURGICAL TECHNICIAN.FINGERNAIL FORMER Work Phone: [facility] 09-26-1993 measles, mumps and rubella virus vaccine [facility] METALLURGICAL TECHNICIAN.FINGERNAIL FORMER Work Phone: [facility] 09-26-1993 poliovirus vaccine, inactivated Rosalva Pendlebury METALLURGICAL TECHNICIAN.FINGERNAIL FORMER Work Phone: [facility] 01-10-1993 diphtheria, tetanus toxoids and acellular pertussis vaccine [facility] METALLURGICAL TECHNICIAN.FINGERNAIL FORMER Work Phone: [facility] 1992 haemophilus influenz ae type b vaccine, HbOC conjugate [facility] METALLURGICAL TECHNICIAN.FINGERNAIL FORMER Work Phone: [facility] 1992 poliovirus vaccine, inactivated Rosalva Pendlebury METALLURGICAL TECHNICIAN.FINGERNAIL FORMER Work Phone: [facility] 1992 diphtheria, tetanus toxoids and acellular pertussis vaccine Rosalva Pendlebury METALLURGICAL TECHNICIAN.FINGERNAIL FORMER Work Phone: [facility] 1992 haemophilus influenz ae type b vaccine, HbOC conjugate Rosalvakeren [facility] METALLURGICAL TECHNICIAN.FINGERNAIL FORMER Work Phone: [facility] 1992 diphtheria, tetanus toxoids and acellular pertussis vaccine Rosalva [facility] METALLURGICAL TECHNICIAN.FINGERNAIL FORMER Work Phone: [facility] 1992 haemophilus influenz ae type b vaccine, HbOC conjugate Rosalvakeren B[facility] METALLURGICAL TECHNICIAN.FINGERNAIL FORMER Work Phone: [facility] 1992 poliovirus vaccine, inactivated Rosalva Pendlebury METALLURGICAL TECHNICIAN.FINGERNAIL FORMER Work Phone: [facility] Payers Date Payer Category Payer Medicaid [employer] [id number] 2024 Medicaid [id number] 2024 Self-pay 2017 Unknown [id number] Unknown [id number] Unknown [id number] Unknown [id number] Unknown [id number] Unknown [id number] Unknown [id number] Unknown [id number] Unknown [id number] Unknown [id number] Unknown [id number] Unknown [id number] Unknown [id number] Social History Date Type Detail Facility Start: 10-12-2019 End: 02-24-2025 Tobacco smoking status NHIS Ex-smoker [facility] End: 08-27-2019 History of tobacco use Current smoker [facility] End: 08-27-2019 History of tobacco use Cigarette Smoker [facility] Start: 10-12-2019 Tobacco use and exposure Smokeless tobacco non-user [facility] Start: 11-22-2024 Alcoholic beverage intake Not Asked [facility] Start: 08-04-2020 End: 11-22-2024 History of Social function [facility] Start: 08-04-2020 End: 11-22-2024 Tobacco use panel [facility] National Score (1-10 0), lower number is lower risk Not on file [facility] Start: 06-08-2011 Tobacco Comment about 1cig daily [facility] Start: 1990 Sex assigned at Not on file [facility] Start: 1990 Sex Assigned At Female [facility] Clinical Notes 11-22-2024 to 05-04-2025 Note Date & Type Note Facility 05-04-2025 Radiology Diagnostic study note [facility] Imaging Services [address] [place] [address] Pelvic w/ Transvaginal MR#: [id number] Acct: [id number] Name: GOGO WELDON Rep #: [id number] : 1990 F 34 From: Monico Denson MD PCP: Care Physician,No Primary Status: REG CLI Study:Pelvic w/ Transvaginal Date of Exam: 05/01/25 Exam# [id number] Ordering Dr: Olga Flores MD PROCEDURE: PELVIC W/ TRANSVAGINAL REASON FOR EXAM: ABNORMAL UTERINE BLEEDING TECHNIQUE: Procedure Code: [id number] Modality: US Procedure: PELVIC W/ TRANSVAGINAL COMPARISON: None FINDINGS: LMP: April 22, 2025. Measurements: Uterus: 10.5 cm x 5.1 cm x 3.9 cm with a volume of 111.41 mL Endometrial Thickness: 9.9 mm Right Ovary: 4.6 cm x 3.2 cm x 3.5 cm with a volume of 27.23 mL. Left Ovary: 3.4 cm x 3.2 cm x 2.7 cm with a volume of 15.09 mL. TRANSABDOMINAL: Uterus: Unremarkable Endometrium: Hyperechoic. Right ovary: Small follicles in the peripheral aspect of the ovary.. Left ovary: Small follicles in the peripheral aspect of the ovary. Other: No large pelvic mass identified. Transvaginal sonography was performed to better visualize the endometrium. TRANSVAGINAL: Uterus: Retroverted. Endometrium: Normal echotexture. Right ovary: Normal size and echotexture. Left ovary: Normal size and echotexture. Other adnexal findings: None. Cul-de-sac: No free intraperitoneal fluid identified. Tenderness: US/Pelvic w/ Transvaginal IMPRESSION: NORMAL TRANSABDOMINAL AND TRANSVAGINAL PELVIC ULTRASOUND. Reading Location: [facility] CC: Dr. Olga Yoon MD; No Primary Care Physician ~ Student Assistance Counselor: Signed [facility] 04-24-2025 Evaluation note Diagnosis Onset Date Resolution Abnormal uterine bleeding acute April 24 10:22am Ovarian cyst acute April 24, 2025 10:22am [facility] Work Phone: 1(871) 624-402108-29-2025 [facility] [address], [address] [place] [address] OFFICE VISIT Date of Service: 04/24/25 MR#: [id number] Acct: [id number] Name: GOGO WELDON Rep #: [id number] : 1990 Provider: Dr. Jeff Yoon MD Age/Sex: 34/F Location: [facility] [place] Status: Signed with Addenda ADDENDUM by Dr. Olga Yoon MD on 04/24/25 at 1102 Assessment and Plan Assessment and Plan (1) Abnormal uterine bleeding: Status: Acute Comment: failed ocp in the past, 2 prev csection, tried natural remedies OTC. (2) Ovarian cyst: Status: Acute Comment: dermoid in the past Orders: Orders CBC W/Diff, Automated Today N93.9 - Abnormal uterine and vaginal bleeding, unspecified Thyroid Stim Hormone (TSH) Today N93.9 - Abnormal uterine and vaginal bleeding,unspecified Pelvic w/ Transvaginal Today N93.9 - Abnormal uterine and vaginal bleeding, unspecified HPI HPI Narrative: The patient is a 34-year-old female presenting with abnormal uterine bleeding. Her menstrual periods extend for two weeks, with severe cramping and pain, especially on the second and third days, necessitating frequent changes of tampons or pads. This issue has been ongoing since the of her last child seven years ago. She has a history of ovarian cysts, including a previously removed dermoid cyst,and another cyst was detected on her other ovary post-childbirth. 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 She frequently experiences urinary tract infections and yeast infections, typically preceding her menstrual cycle. Past treatments included control pills, which worsened her symptoms, and natural remedies, which were ineffective. She has not had recent ultrasounds or blood tests to further assess her condition. Attestation: Documentation on this patient encounter was supported using ambient scribe technology/ voice AI technology. The patient consented to recording for the purpose of documenting the encounter. Provider reviewed content of the generatednote prior to signature. 04/24/25 1102 nohemi LORENZ> Date _ Olga Yoon MD cc: ~* Signed Intake Vital Signs 07/20/23 09:47 02/03/25 08:12 02/13/25 15:04 04/24/25 10:28 04/24/25 10:29 Height 5 ft 6 in 5 ft 6 in 5 ft 6 in 5 ft 6 in 5 ft 6 in Weight: 208 lb 2 oz 207 lb 2 oz BMI 33.5 33.4 BP 115/79 124/78 H Intake Visit Reasons: HYSTERECTOMY CONSULT Proposal Development Manager Required: No Is patient in pain?: Yes (menstrual cramps) Allergies titanium Allergy (Severe, Verified 04/24/25 10:30) Hives bee venom protein (honey bee) Allergy (Mild, Verified 04/24/25 10:30) Swelling Medications ?Medication ?Instructions ?Recorded ?Confirmed ?Type nitrofurantoin 100 mg PO Q12H 5 days #10 ca ps 04/22/25 04/24/25 Rx monohydrate/macrocrystals 100 mg capsule (Macrobid) Is last menstrual period known: Yes Last Menstrual Period: 04/22/25 Post menopausal: No Patient : No : No PFSH Medical History Dermoid cyst of both ovaries Migraine-cluster headache syndrome Acute streptococcal pharyngitis Anemia Surgical History [place] teeth extracted H/O ovarian cystectomy Previous section Family History Grandmother Asthma Cancer salivary glands Diabetes Grandfather COPD (chronic obstructive pulmonary disease) Bladder cancer, Onset Age: 75 paternal Skin cancer paternal Lung cancer, Onset Age: 70 Sister Endometriosis Mother Thyroid disorder Anxiety Depression Other CVA (cerebral vascular accident) Social History adopted: No household members: significant other and children number of children: 2 current occupational status: employed current occupation: [employer] Smoking Status: Former smoker alcohol intake: never substance use type: does not use what type of physical activity do you participate in: none seatbelt use: sometimes do you feel safe at home: Yes additional social history: Ofelia Adan Patient has 2 kids, Loco has 3 kids HPI HYSTERECTOMY CONSULT Details: GOGO WELDON is a 34 year old who presents for Female Reproductive History Last Menstrual Period: 04/22/25 Menopausal Symptoms: No night sweats History 3 Elective abortions Hx Para 2 Spontaneous abortions 1 Hx # Term Pregnancies Ectopic pregnancies Hx # Pregnancies Multiple births # of living children 2 Past Pregnancies Del. Date Name GA/Weeks Outcome Route Bth Weight Gen Labor Lgth Anesthesia Del Locatn Provider FOB Unknown 2016 7 spontaneous Unknown 2014 Michael live - full term Unknown 2017 Hay live - ROS Const Constitutional: Denies fatigue, night sweats, weight gain or weight loss ENT ENT: Reports system reviewed and no additional complaints, except as documented Cardio Card: Denies chest pain Resp Resp: Denies cough or dyspnea GI GI: Reports as per HPI; Denies abdominal pain, constipation, nausea or vomiting : Denies nipple discharge, urinary frequency, urinary incontinence, urinary hesitancy, urinary urgency, vaginal discharge, vaginal dryness, vaginal odor or vaginal pruritus Musc Musc: Denies arthralgias, back pain or muscle weakness Skin Skin/Breast: Denies alopecia, change in hair, dry skin, breast mass, breast pain, breast skin changes or nipple discharge Neuro Neuro: Reports system reviewed and no additional complaints, except as documented Psych Psych: Reports system reviewed and no additional complaints, except as documented Endo Endo: Denies cold intolerance, excessive sweating, heat intolerance or polydipsia Arnold/Lymph Hematologic/Lymphatic: Denies easy bleeding, Denies easy bruising and Denies lymphadenopathy Exam Const General: cooperative, healthy appearing, comfortable and no acute distress Orientation: alert HENMT Head: normal to inspection and normocephalic Ears: hearing grossly normal bilaterally and external ears normal Nose: external nose normal and nares normal Face and sinus: normal facial exam Neck Neck: normal visual inspection and no lymphadenopathy Thyroid: thyroid normal Chest Chest palpation & inspection: normal inspection of the chest Resp Effort & Inspection: normal respiratory effort Auscultation: clear to auscultation bilaterally Cardio Rate: regular rate Rhythm: regular rhythm Heart Sounds: S1 normal and S2 normal GI Inspection: normal to inspection and non-distended Palpation: soft and no hepatosplenomegaly Musc Other: gross motor intact no deficits, full bilateral strength Skin General: no rashes or lesions noted Neuro General: patient alert, patient awake, moves all extremities and no focal motor deficits Motor: muscle tone normal throughout Extrem General: normal to inspection and no pedal edema Psych Appearance: grossly normal Mental Status: mental status grossly normal Affect: normal affect Speech and Movement: speech and movement normal Coding Level of Care Code Off vis,new,level 4 Diagnoses Abnormal uterine bleeding N93.9 Ovarian cyst N83.209 Assessment and Plan Assessment and Plan (1) Abnormal uterine bleeding: Status: Acute Comment: failed ocp in the past, 2 prev csection, tried natural remedies OTC. (2) Ovarian cyst: Status: Acute Comment: dermoid in the past Plan discussed workup and options plan ultrasound and labs and fu for EMB and discussoptions. 04/24/25 Simran song MD> Date _ Olga Yoon MD [facility] Signature: Date (if applicable) CC: ~ [facility]08-27-2025 Progress [facility] [address], [address] [place] [address] OFFICE VISIT Date of Service: 04/22/25 MR#: [id number] Acct: [id number] Name: GOGO WELDON Rep #: [id number] : 1990 Provider: MARILEE Posey Age/Sex: 34/F Location: [facility] [place] Status: Signed Intake Vital Signs 02/13/25 15:04 Height 5 ft 6 in BP 112/68 Blood Pressure Location Lt brachial Position Sitting Respiration 15 Pulse 81 Pulse Source NIBP Temp 98.1 F Temp Source Oral Pulse Oximetry (%) 99 Oxygen Delivery Method room air Intake Visit Reasons: CONCERN FOR UTI Chief Complaint: dysuria, vaginal complaints Proposal Development Manager Required: No Is patient in pain?: Yes Allergies titanium Allergy (Severe, Verified 04/22/25 17:25) Hives bee venom protein (honey bee) Allergy (Mild, Verified 04/22/25 17:25) Swelling Medications ?Medication ?Instructions ?Recorded ?Confirmed ?Type nitrofurantoin 100 mg PO Q12H 5 days #10 ca ps 04/22/25 04/22/25 Rx monohydrate/macrocrystals 100 mg capsule (Macrobid) Is last menstrual period known: No Post menopausal: No Patient : No Have you fallen in the past year?: No Nurse's Note: dysuria, vaginal itching and burning, red milky discharge without odor. denies fever, abd pain. denies new partners. s/s x 3 days. [facility] Medical History (Updated 02/24/25 @ 08:59 by Yoselyn Crowley) Dermoid cyst of both ovaries Migraine-cluster headache syndrome Acute streptococcal pharyngitis Anemia Surgical History (Updated 02/24/25 @ 08:59 by Yoselyn Crowley) [place] teeth extracted H/O ovarian cystectomy Previous section Family History (Updated 02/24/25 @ 09:01 by Yoselyn Crowley) Grandmother Asthma Cancer salivary glands Diabetes Grandfather COPD (chronic obstructive pulmonary disease) Bladder cancer, Onset Age: 75 paternal Skin cancer paternal Lung cancer, Onset Age: 70 Sister Endometriosis Mother Thyroid disorder Anxiety Depression Other CVA (cerebral vascular accident) Social History (Updated 02/24/25 @ 08:59 by Yoselyn Crowley) adopted: No household members: significant other and children number of children: 2 current occupational status: employed current occupation: [employer] Smoking Status: Former smoker alcohol intake: never substance use type: does not use what type of physical activity do you participate in: none seatbelt use: sometimes do you feel safe at home: Yes additional social history: Ofelia Adan Patient has 2 kids, Loco has 3 kids Female Reproductive History Menstrual Ab spontaneous: 1 HPI HPI Chief Complaint: dysuria, vaginal complaints Details: GOGO WELDON, is a 34 F who [facility] of dysuria, vaginalitching and burning, red milky discharge withoutodor. No complaints of fever, chills, sweats, lightheadedness/dizziness, nausea/vomiting, chest pain /shortnessof breath/dyspnea on exertion, abdominal pain, or midback pain. Monogamous sexual relations with presumed monogamous partner. No kasp-bsi-nzqnbwq medications have been taken to assist. No other associated symptoms and no alleviating/aggravating factors. ROS Const Constitutional: No other (As above) Exam Const General: cooperative, healthy appearing and no acute distress Orientation: alert, awake Chest Chest palpation & inspection: normal inspection of the chest Resp Effort & Inspection: normal respiratory effort and able to speak in complete sentences Auscultation: Bilateral: Clear to Auscultation Cardio Palpation: normal PMI Rate: regular rate Rhythm: regular rhythm Heart Sounds: S1 normal, S2 normal, no gallops, no murmurs and no rubs Pulses: radial pulses present GI Inspection: normal to inspection Palpation: soft and tender suprapubic (Patient describes upon self-palpation) General: No CVA tenderness Skin General: no rashes or lesions noted Neuro General: patient alert, patient awake Cognition: normal cognition Speech: speech normal Psych Appearance: grossly normal Mental Status: mental status grossly normal Mood: congruent mood Affect: normal affect Speech and Movement: speech and movement normal Attitude: cooperative Diagnoses Urinary tract infection w/ hematuria N39.0 Assessment and Plan Assessment and Plan (1) Urinary tract infection: Status: Acute Plan: See POC results; urine sent to lab for C/S, gc, chlamydia, trichomoniasis, bv, rock. Macrobid as prescribed today. Supportive measures as instructed today. Follow-up with PCP in 3 to 5 days should symptoms not improve, sooner should symptoms only worsen or any other concerns develop. Patient states acknowledging understanding all the above Results POC Urine Office , Urine Negative Last Edit by Ada Goodrich on 04/22/25 17 :32 POC Urinalysis Dip (Clinic) Office Urine Color YELLOW Last Edit by Ada Goodrich on 04/22/25 17:32 Office Urine Clarity Clear Last Edit by Ada Goodrich on 04/22/25 17:32 Office Urine Glucose Negative Last Edit by Ada Goodrich on 04/22/25 17:32 Office Urine Ketones Negative Last Edit by Ada Goodrich on 04/22/25 17:32 Off Ur Spec [place] 1.010 Last Edit by Ada Goodrich on 04/22/25 17:32 Office Urine pH 7.5 Last Edit by Ada Goodrich on 04/22/25 17:32 Office Urine Bilirubin Negative Last Edit by Ada Goodrich on 04/22/25 17: 32 Office Urine Urobilinogen Negative Last Edit by Ada Goodrich on 04/22/25 17: 32 Office Urine Blood Negative Last Edit by Ada Goodrich on 04/22/25 17:32 Office Urine Blood Hemolyzed Small Last Edit by Ada Goodrich on 04/22/25 17:32 Office Urine Protein Trace Last Edit by Ada Goodrich on 04/22/25 17:32 Office Urine Nitrate Negative Last Edit by Ada Goodrich on 04/22/25 17:32 Off Ur Leukocytes Positive Last Edit by Ada Goodrich on 04/22/25 17:32 Coding Level of Care Code Off vis,est,level 3 Assessment and Plan Assessment and Plan Orders: Orders POC Urinalysis Dip (Clinic) Today R30.0 - Dysuria POC Urine Today R30.0 - Dysuria Culture, Urine Today R82.90 - Unspecified abnormal findings in urine Medications: New nitrofurantoin monohyd/m-cryst 100 mg (Macrobid) must administer with a meal/food 100 mg PO Q12H 5 days 10 caps 0RF Clinical Quality Measures Falls Risk Screening/Assistive Devices Have you fallen in the past year?: No 04/22/25 1736 s MARILEE HUNT> Date _ Jeovanny HUNT Cosigner Signature: Date (if applicable) CC: ~ [facility]08-27-2025 Progress note Author Jeovanny Davis [facility] Note Date/Time April 22, 2025 5: 36pm [facility] [address], [address] [place] [address] OFFICE VISIT Date of Service: 04/22/25 MR#: [id number] Acct: [id number] Name: GOGO WELDON Rep #: [id number] : 1990 Provider: MARILEE Posey Age/Sex: 34/F Location: [facility] [place] Status: Signed Intake Vital Signs 02/13/25 15:04 Height 5 ft 6 in BP 112/68 Blood Pressure Location Lt brachial Position Sitting Respiration 15 Pulse 81 Pulse Source NIBP Temp 98.1 F Temp Source Oral Pulse Oximetry (%) 99 Oxygen Delivery Method room air Intake Visit Reasons: CONCERN FOR UTI Chief Complaint: dysuria, vaginal complaints Proposal Development Manager Required: No Is patient in pain?: Yes Allergies titanium Allergy (Severe, Verified 04/22/25 17:25) Hives bee venom protein (honey bee) Allergy (Mild, Verified 04/22/25 17:25) Swelling Medications ?Medication ?Instructions ?Recorded ?Confirmed ?Type nitrofurantoin 100 mg PO Q12H 5 days #10 ca ps 04/22/25 04/22/25 Rx monohydrate/macrocrystals 100 mg capsule (Macrobid) Is last menstrual period known: No Post menopausal: No Patient : No Have you fallen in the past year?: No Nurse's Note: dysuria, vaginal itching and burning, red milky discharge without odor. denies fever, abd pain. denies new partners. s/s x 3 days. PFSH Medical History (Updated 02/24/25 @ 08:59 by Yoselyn Crowley) Dermoid cyst of both ovaries Migraine-cluster headache syndrome Acute streptococcal pharyngitis Anemia Surgical History (Updated 02/24/25 @ 08:59 by Yoselyn Crowley) [place] teeth extracted H/O ovarian cystectomy Previous section Family History (Updated 02/24/25 @ 09:01 by Yoselyn Crowley) Grandmother Asthma Cancer salivary glands Diabetes Grandfather COPD (chronic obstructive pulmonary disease) Bladder cancer, Onset Age: 75 paternal Skin cancer paternal Lung cancer, Onset Age: 70 Sister Endometriosis Mother Thyroid disorder Anxiety Depression Other CVA (cerebral vascular accident) Social History (Updated 02/24/25 @ 08:59 by Yoselynsa Crowley) adopted: No household members: significant other and children number of children: 2 current occupational status: employed current occupation: [employer] Smoking Status: Former smoker alcohol intake: never substance use type: does not use what type of physical activity do you participate in: none seatbelt use: sometimes do you feel safe at home: Yes additional social history: Ofelia Adan Patient has 2 kids, Loco has 3 kids Female Reproductive History Menstrual Ab spontaneous: 1 HPI HPI Chief Complaint: dysuria, vaginal complaints Details: GOGO WELDON, is a 34 F who presents to the office today for [facility] for approximately 3 day history of dysuria, vaginalitching and burning, red milky discharge without odor. No complaints of fever, chills, sweats, lightheadedness/dizziness, nausea/vomiting, chest pain/shortnessof breath/dyspnea on exertion, abdominal pain, or midback pain. Monogamous sexual relations with presumed monogamous partner. No rwey-rmn-hvlarpe medications have been taken to assist. No other associated symptoms and no alleviating/aggravating factors. ROS Const Constitutional: No other (As above) Exam Const General: cooperative, healthy appearing and no acute distress Orientation: alert, awake Chest Chest palpation & inspection: normal inspection of the chest Resp Effort & Inspection: normal respiratory effort and able to speak in complete sentences Auscultation: Bilateral: Clear to Auscultation Cardio Palpation: normal PMI Rate: regular rate Rhythm: regular rhythm Heart Sounds: S1 normal, S2 normal, no gallops, no murmurs and no rubs Pulses: radial pulses present GI Inspection: normal to inspection Palpation: soft and tender suprapubic (Patient describes upon self-palpation) General: No CVA tenderness Skin General: no rashes or lesions noted Neuro General: patient alert, patient awake Cognition: normal cognition Speech: speech normal Psych Appearance: grossly normal Mental Status: mental status grossly normal Mood: congruent mood Affect: normal affect Speech and Movement: speech and movement normal Attitude: cooperative Diagnoses Urinary tract infection w/ hematuria N39.0 Assessment and Plan Assessment and Plan (1) Urinary tract infection: Status: Acute Plan: See POC results; urine sent to lab for C/S, gc, chlamydia, trichomoniasis, bv, rock. Macrobid as prescribed today. Supportive measures as instructed today. Follow-up with PCP in 3 to 5 days should symptoms not improve, sooner should symptoms only worsen or any other concerns develop. Patient states acknowledging understanding all the above Results POC Urine Office , Urine Negative Last Edit by Ada Goodrich on 04/22/25 17 :32 POC Urinalysis Dip (Clinic) Office Urine Color YELLOW Last Edit by Ada Goodrich on 04/22/25 17:32 Office Urine Clarity Clear Last Edit by Ada Goodrich on 04/22/25 17:32 Office Urine Glucose Negative Last Edit by Ada Goodrich on 04/22/25 17:32 Office Urine Ketones Negative Last Edit by Ada Goodrich on 04/22/25 17:32 Off Ur Spec [place] 1.010 Last Edit by Ada Goodrich on 04/22/25 17:32 Office Urine pH 7.5 Last Edit by Ada Goodrich on 04/22/25 17:32 Office Urine Bilirubin Negative Last Edit by Ada Goodrich on 04/22/25 17: 32 Office Urine Urobilinogen Negative Last Edit by Ada Goodrich on 04/22/25 17: 32 Office Urine Blood Negative Last Edit by Ada Goodrich on 04/22/25 17:32 Office Urine Blood Hemolyzed Small Last Edit by Ada Goodrich on 04/22/25 17:32 Office Urine Protein Trace Last Edit by Ada Goodrich on 04/22/25 17:32 Office Urine Nitrate Negative Last Edit by Ada Goodrich on 04/22/25 17:32 Off Ur Leukocytes Positive Last Edit by Ada Goodrich on 04/22/25 17:32 Coding Level of Care Code Off vis,est,level 3 Assessment and Plan Assessment and Plan Orders: Orders POC Urinalysis Dip (Clinic) Today R30.0 - Dysuria POC Urine Today R30.0 - Dysuria Culture, Urine Today R82.90 - Unspecified abnormal findings in urine Medications: New nitrofurantoin monohyd/m-cryst 100 mg (Macrobid) must administer with a meal/food 100 mg PO Q12H 5 days 10 caps 0RF Clinical Quality Measures Falls Risk Screening/Assistive Devices Have you fallen in the past year?: No 04/22/25 1736 <Electronically signed by Jeovanny HUNT> Date _ Jeovanny HUNT Cosigner Signature: Date (if applicable) CC: ~ [facility] Work Phone: 1(234) 967-691706-22-2025 Progress note Author Olga Yoon [facility] Note Date/Time February 15, 2025 12:2 2pm [facility] [address], [address] [place] [address] OFFICE VISIT Date of Service: 04/24/25 MR#: [id number] Acct: [id number] Name: GOGO WELDON #: [id number] : 1990 Provider: Dr. Jeff Yoon MD Age/Sex: 34/F Location: [facility] [place] Status: Signed Intake Vital Signs 07/20/23 09:47 02/03/25 08:12 02/13/25 15:04 Height 5 ft 6 in 5 ft 6 in 5 ft 6 in Weight: 208 lb 2 oz BMI 33.5 BP 115/79 Intake Visit Reasons: HYSTERECTOMY CONSULT Proposal Development Manager Required: No Is patient in pain?: No (random left breast pain) Feel stressed/tense/nervous/anxious/difficulty sleeping: rather much (in the process of moving) Allergies titanium Allergy (Severe, Verified 02/13/25 15:06) Hives bee venom protein (honey bee) Allergy (Mild, Verified 02/13/25 15:06) Swelling Is last menstrual period known: Yes Last Menstrual Period: 01/27/25 (periods areirregular, heavy and lots of clots) Post menopausal: No Patient : No : No [facility] Medical History (Updated 02/13/25 @ 15:09 by Donna Glaser) Migraine-cluster headache syndrome Acute streptococcal pharyngitis Anemia Surgical History (Updated 02/13/25 @ 15:10 by Donna Glaser) [place] teeth extracted H/O ovarian cystectomy Previous section Family History (Updated 02/13/25 @ 15:14 by Donna Glaser) Grandmother Asthma Cancer salivary glands Diabetes Grandfather COPD (chronic obstructive pulmonary disease) Bladder cancer, Onset Age: 75 paternal Skin cancer paternal Lung cancer, Onset Age: 70 Sister Endometriosis Mother Thyroid disorder Other CVA (cerebral vascular accident) Social History (Updated 02/13/25 @ 15:16 by Donna Glaser) adopted: No household members: significant other and children number of children: 2 current occupational status: employed current occupation: [employer] Smoking Status: Former smoker alcohol intake: never substance use type: does not use seatbelt use: sometimes do you feel safe at home: Yes additional social history: Manuelsonia Adan Patient has 2 kids, Loco has 3 kids HPI HYSTERECTOMY CONSULT Details: GOGO WELDON is a 34 year old who presents for hysterectoym ocnsult. patient had vitals taken and then doctor called for emergency, will be rescheduled. Female Reproductive History Last Menstrual Period: 01/27/25 (periods are irregular, heavy and lots of clots) History 3 Elective abortions Hx Para 2 Spontaneous abortions 1 Hx # Term Pregnancies Ectopic pregnancies Hx # Pregnancies Multiple births # of living children 2 Past Pregnancies Del. Date Name GA/Weeks Outcome Route Bth Weight Gen [facility] FOB Unknown 2016 7 spontaneous Unknown 2014 Michael live - full term Unknown 2017 Hay live - Coding Level of Care Code No Charge 02/15/25 1222 <Electronically signed by Olga song MD> Date _ Olga Yoon MD [facility] Signature: Date (if applicable) CC: ~ [facility] Work Phone: 1(372) 913-738506-22-2025 Progress [facility] [address] [place] [address], [place] [address] OFFICE VISIT Date of Service: 04/24/25 MR#: [id number] Acct: [id number] Name: GOGO WELDON Rep #: [id number] : 1990 Provider: Dr. Jeff Yoon MD Age/Sex: 34/F Location: [facility] [place] Status: Signed Intake Vital Signs 07/20/23 09:47 02/03/25 08:12 02/13/25 15:04 Height 5 ft 6 in 5 ft 6 in 5 ft 6 in Weight: 208 lb 2 oz BMI 33.5 BP 115/79 Intake Visit Reasons: HYSTERECTOMY CONSULT Proposal Development Manager Required: No Is patient in pain?: No (random left breast pain) Feel stressed/tense/nervous/anxious/difficulty sleeping: rather much (in the process of moving) Allergies titanium Allergy (Severe, Verified 02/13/25 15:06) Hives bee venom protein (honey bee) Allergy (Mild, Verified 02/13/25 15:06) Swelling Is last menstrual period known: Yes Last Menstrual Period: 01/27/25 (periods areirregular, heavy and lots of clots) Post menopausal: No Patient : No : No [facility] Medical History (Updated 02/13/25 @ 15:09 by Donna Glaser) Migraine-cluster headache syndrome Acute streptococcal pharyngitis Anemia Surgical History (Updated 02/13/25 @ 15:10 by Donna Glaser) [place] teeth extracted H/O ovarian cystectomy Previous section Family History (Updated 02/13/25 @ 15:14 by Donna Glaser) Grandmother Asthma Cancer salivary glands Diabetes Grandfather COPD (chronic obstructive pulmonary disease) Bladder cancer, Onset Age: 75 paternal Skin cancer paternal Lung cancer, Onset Age: 70 Sister Endometriosis Mother Thyroid disorder Other CVA (cerebral vascular accident) Social History (Updated 02/13/25 @ 15:16 by Donna Glaser) adopted: No household members: significant other and children number of children: 2 current occupational status: employed current occupation: [employer] Smoking Status: Former smoker alcohol intake: never substance use type: does not use seatbelt use: sometimes do you feel safe at home: Yes additional social history: Ofelia Adan Patient has 2 kids, Loco has 3 kids HPI HYSTERECTOMY CONSULT Details: GOGO WELDON is a 34 year old who presents for hysterectoym ocnsult. patient had vitals taken andthen doctor called for emergency, will be rescheduled. Female Reproductive History Last Menstrual Period: 01/27/25 (periods are irregular, heavy and lots of clots) History 3 Elective abortions Hx Para 2 Spontaneous abortions 1 Hx # Term Pregnancies Ectopic pregnancies Hx # Pregnancies Multiple births # of living children 2 Past Pregnancies Del. Date Name GA/Weeks Outcome Route Bth Weight Gen Labor Lgth Anes the dior Del Locatn Provider FOB Unknown 2016 7 spontaneous Unknown 2014 Michael live - full term Unknown 2017 Hay live - Coding Level of Care Code No Charge 02/15/25 1222 nohemi LORENZ> Date _ Olga Coats Signature: Date (if applicable) CC: ~ [facility]03-29-2025 NoteHNO ID: [id number] Author: ROSALVA REAVES APRN.FINGERNAIL FORMER Service: ? Author Type: Nurse Practitioner Type: Progress Notes Filed: 11/22/2024 11:06 Note Text: Subjective HPI Nontoxic-appearing 34-year-old female presents urgent care chief complaint sore throat. Duration of symptoms 2 days. Associated symptoms sore throat. Presents today for evaluation. Strep throat exposure. OTC medications none recently. No difficulty swallowing and secretion decreased range of motion neck or trismus. No high fevers. Past medical history prescription medications allergies reviewed. .Patient presents with: Sore Throat: x 2 days PAST MEDICAL HISTORY Diagnosis Date Attention deficit disorder without mention of hyperactivity 07/04/2005 History reviewed. No pertinent surgical history. ALLERGIES Titanium MEDICATIONS amoxicillin (AMOXIL) 875 mg tablet Take 875 mg by mouth twice daily. (Patient not taking: Reported on 11/22/2024) tdnvaxsxxqUMYNT-lzildf-sakctesqf (BMX 1:1:1) 1:1:1 liqd Mix in equal amounts - 1 T every 2hrs as needed for mouth pain, Swish/swallow or expectorate. (8oz) (Patient not taking: Reported on 11/22/2024) Norethin Anuj-Eth Estrad-FE (LOESTRIN FE .5) 1.5-30 mg-mcg ORAL tablet Take 1 tablet by mouth once daily. (Patient not taking: Reported on 11/22/2024) FAMILY HISTORY Problem Relation Age of Onset Hypertension Other MATERNAL AND PATERNAL SIDES Heart Other MATERNAL AND PATERNAL SIDES Cancer Other MATERNAL AND PATERNAL SIDES Diabetes Other MATERNAL AND PATERNAL SIDES Social History Tobacco Use Smoking status: Former Current packs/day: 0.00 Types: Cigarettes Quit date: 08/27/2019 Years since quittin.2 Smokeless tobacco: Never Tobacco comments: about 1cig daily Vaping Use Vaping status: Former BP 124/72 Pulse 104 Temp 37.2 ?C (98.9 ?F) Resp 16 Wt 88.2 kg (194 lb 7.1 oz) LMP 09/20/2019 (Approximate) SpO2 97% Hr 96 Review of Systems Constitutional: Negative for chills, fever and malaise/fatigue. HENT: Positive for sore throat. Negative for congestion, ear discharge, ear pain and sinus pain. Eyes: Negative for blurred vision, pain, discharge and redness. Respiratory: Negative for cough, hemoptysis, sputum production, shortness of breath, wheezing and stridor. Cardiovascular: Negative for chest pain. Gastrointestinal: Negative for abdominal pain, diarrhea and vomiting. Musculoskeletal: Negative for myalgias. Skin: Negative for itching and rash. Neurological: Negative for dizziness and headaches. Objective Physical Exam Constitutional: General: She is not in acute distress. Appearance: She is not diaphoretic. HENT: Head: Normocephalic. Jaw: No trismus, tenderness, swelling or pain on movement. Nose: Congestion present. Mouth/Throat: Mouth: Mucous membranes are moist. Pharynx: Oropharynx is clear. Uvula midline. Posterior oropharyngeal erythema present. No pharyngeal swelling, oropharyngeal exudate or uvula swelling. Eyes: Conjunctiva/sclera: Conjunctivae normal. Pupils: Pupils are equal, round, and reactive to light. Cardiovascular: Rate and Rhythm: Normal rate and regular rhythm. Heart sounds: Normal heart sounds. Pulmonary: Effort: Pulmonary effort is normal. No tachypnea, accessory muscle usage or respiratory distress. Breath sounds: Normal breath sounds. No stridor. No wheezing, rhonchi or rales. Abdominal: General: There is no distension. Palpations: Abdomen is soft. Tenderness: There is no abdominal tenderness. There is no guarding or rebound. Musculoskeletal: Cervical back: Normal range of motion and neck supple. No edema, erythema, rigidity or tenderness. No pain with movement. Normal range of motion. Lymphadenopathy: Cervical: No cervical adenopathy. Skin: General: Skin is warm and dry. Neurological: Mental Status: She is alert and oriented to person, place, and time. ASSESSMENT/PLAN: 1. Sore throat - ICD9: 462, ICD10: J02.9 (primary diagnosis) - STREP A MOLECULAR (POC) 2. Strep pharyngitis - ICD9: 034.0, ICD10: J02.0 Diagnosed strep pharyngitis. Placed on amoxicillin. Patient was educated on supportive therapies. Patient will follow up with primary care provider as needed. Patient was instructed to immediately proceed to emergency room for any new, worsening, or symptoms lasting longer than anticipated. The patient's clinical presentation is otherwise unremarkable at this time. Based on exam and clinical finding, the patient is stable for discharge. Plan of care was discussed with patient. Patient verbalizes understanding and agrees to plan of care. This note was generated using [employer] software. It may contain errors in wording, punctuation, or spelling. Rosalva Reaves APRN.[facility]03-29-2025 History of Present illness Narrative* Rosalva Reaves APRN.[facility] - 11/22/2024 10:54 AM EDT Subjective HPI Nontoxic-appearing 34-year-old female presents urgent care chief complaint sore throat. Duration ofsymptoms 2 days. Associated symptoms sore throat. Presents today for evaluation. Strep throat exposure. OTC medications none recently. No difficulty swallowing and secretion decreased range of motionneck or trismus. No high fevers. Past medical history prescription medications allergies reviewed. .Patient presents with: Sore Throat: x 2 days PAST MEDICAL HISTORY Diagnosis Date Attention deficit disorder without mention of hyperactivity 07/04/2005 History reviewed. No pertinent surgical history. ALLERGIES Titanium MEDICATIONS amoxicillin (AMOXIL) 875 mg tablet Take 875 mg by mouth twice daily. (Patient not taking: Reported on 11/22/2024) raxeoprepaOHEVN-wymcmp-jcylzfjxq (BMX 1:1:1) 1:1:1 liqd Mix in equal amounts - 1 T every 2hrs as needed for mouth pain, Swish/swallow or expectorate. (8oz) (Patient not taking: Reported on 11/22/2024) Norethin Anuj-Eth Estrad-FE (LOESTRIN FE .01/23) 1.5-30 mg-mcg ORAL tablet Take 1 tablet by mouth once daily. (Patient not taking: Reported on 11/22/2024) FAMILY HISTORY Problem Relation Age of Onset Hypertension Other MATERNAL & PATERNAL SIDES Heart Other MATERNAL & PATERNAL SIDES Cancer Other MATERNAL & PATERNAL SIDES Diabetes Other MATERNAL & PATERNAL SIDES Social History Tobacco Use Smoking status: Former Current packs/day: 0.00 Types: Cigarettes Quit date: 08/27/2019 Years since quittin.2 Smokeless tobacco: Never Tobacco comments: about 1cig daily Vaping Use Vaping status: Former BP 124/72 Pulse 104 Temp 37.2 C (98.9 F) Resp 16 Wt 88.2 kg (194 lb 7.1 oz) LMP 09/20/2019 (Approximate) SpO2 97% Hr 96 Review of Systems Constitutional: Negative for chills, fever and malaise/fatigue. HENT: Positive for sore throat. Negative for congestion, ear discharge, ear pain and sinus pain. Eyes: Negative for blurred vision, pain, discharge and redness. Respiratory: Negative for cough, hemoptysis, sputum production, shortness of breath, wheezing and stridor. Cardiovascular: Negative for chest pain. Gastrointestinal: Negative for abdominal pain, diarrhea and vomiting. Musculoskeletal: Negative for myalgias. Skin: Negative for itching and rash. Neurological: Negative for dizziness and headaches. Objective Physical Exam Constitutional: General: She is not in acute distress. Appearance: She is not diaphoretic. HENT: Head: Normocephalic. Jaw: No trismus, tenderness, swelling or pain on movement. Nose: Congestion present. Mouth/Throat: Mouth: Mucous membranes are moist. Pharynx: Oropharynx is clear. Uvula midline. Posterior oropharyngeal erythema present. No pharyngeal swelling, oropharyngeal exudate or uvula swelling. Eyes: Conjunctiva/sclera: Conjunctivae normal. Pupils: Pupils are equal, round, and reactive to light. Cardiovascular: Rate and Rhythm: Normal rate and regular rhythm. Heart sounds: Normal heart sounds. Pulmonary: Effort: Pulmonary effort is normal. No tachypnea, accessory muscle usage or respiratory distress. Breath sounds: Normal breath sounds. No stridor. No wheezing, rhonchi or rales. Abdominal: General: There is no distension. Palpations: Abdomen is soft. Tenderness: There is no abdominal tenderness. There is no guarding or rebound. Musculoskeletal: Cervical back: Normal range of motion and neck supple. No edema, erythema, rigidity or tenderness. No pain with movement. Normal range of motion. Lymphadenopathy: Cervical: No cervical adenopathy. Skin: General: Skin is warm and dry. Neurological: Mental Status: She is alert and oriented to person, place, and time. ASSESSMENT/PLAN: 1. Sore throat - ICD9: 462, ICD10: J02.9 (primary diagnosis) - STREP A MOLECULAR (POC) 2. Strep pharyngitis - ICD9: 034.0, ICD10: J02.0 Diagnosed strep pharyngitis. Placed on amoxicillin. Patient was educated on supportive therapies. Patient will follow up with primary care provider as needed. Patient was instructed to immediately proceed to emergency room for any new, worsening, or symptoms lasting longer than anticipated. The patient's clinical presentation is otherwise unremarkable at this time. Based on exam and clinical finding, the patient is stable for discharge. Plan of care was discussed with patient. Patient verbalizes understanding and agrees to plan of care. This note was generated using [employer] software. It may contain errors in wording, punctuation, or spelling. Rosalva Reaves APRN.[facility]* Diagnosis Sore throat- Primary Acute pharyngitis Strep pharyngitis Streptococcal sore throat documented in this encounter [facility] noteNo assessment information availableK[facility] Work Phone: Evaluation note* Diagnosis Onset Date Resolution Status Admit Date Abnormal uterine bleeding acute April 24, 2025 10:22am Ovarian cyst acute April 24, 2025 10:22am [facility] Work Phone: Progress note Author Olga Yoon [facility] Note Date/Time April 24, 2025 11 :02am [facility] [address], [address] [place] [address] OFFICE VISIT Date of Service: 04/24/25 MR#: [id number] Acct: [id number] Name: GOGO WELDON Rep #: [id number] : 1990 Provider: Dr. Jeff Yoon MD Age/Sex: 34/F Location: [facility] [place] Status: Signed with Addenda ADDENDUM by Dr. Olga Yoon MD on 04/24/25 at 1102 Assessment and Plan Assessment and Plan (1) Abnormal uterine bleeding: Status: Acute Comment: failed ocp in the past, 2 prev csection, tried natural remedies OTC. (2) Ovarian cyst: Status: Acute Comment: dermoid in the past Orders: Orders CBC W/Diff, Automated Today N93.9 - Abnormal uterine and vaginal bleeding, unspecified Thyroid Stim Hormone (TSH) Today N93.9 - Abnormal uterine and vaginal bleeding,unspecified Pelvic w/ Transvaginal Today N93.9 - Abnormal uterine and vaginal bleeding, unspecified HPI HPI Narrative: The patient is a 34-year-old female presenting with abnormal uterine bleeding. Her menstrual periods extend for two weeks, with severe cramping and pain, especially on the second and third days, necessitating frequent changes of tampons or pads. This issue has been ongoing since the of her last child seven years ago. She has a history of ovarian cysts, including a previously removed dermoid cyst,and another cyst was detected on her other ovary post-childbirth. 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 She frequently experiences urinary tract infections and yeast infections, typically preceding her menstrual cycle. Past treatments included control pills, which worsened her symptoms, and natural remedies, which were ineffective. She has not had recent ultrasounds or blood tests to further assess her condition. Attestation: Documentation on this patient encounter was supported using ambient scribe technology/ voice AI technology. The patient consented to recording for the purpose of documenting the encounter. Provider reviewed content of the generatednote prior to signature. 04/24/25 1102 <Electronically signed by Olga song MD> Date _ Olga Yoon MD cc: ~* Signed Intake Vital Signs 07/20/23 09:47 02/03/25 08:12 02/13/25 15:04 04/24/25 10:28 04/24/25 10:29 Height 5 ft 6 in 5 ft 6 in 5 ft 6 in 5 ft 6 in 5 ft 6 in Weight: 208 lb 2 oz 207 lb 2 oz BMI 33.5 33.4 BP 115/79 124/78 H Intake Visit Reasons: HYSTERECTOMY CONSULT Proposal Development Manager Required: No Is patient in pain?: Yes (menstrual cramps) Allergies titanium Allergy (Severe, Verified 04/24/25 10:30) Hives bee venom protein (honey bee) Allergy (Mild, Verified 04/24/25 10:30) Swelling Medications ?Medication ?Instructions ?Recorded ?Confirmed ?Type nitrofurantoin 100 mg PO Q12H 5 days #10 ca ps 04/22/25 04/24/25 Rx monohydrate/macrocrystals 100 mg capsule (Macrobid) Is last menstrual period known: Yes Last Menstrual Period: 04/22/25 Post menopausal: No Patient : No : No PFSH Medical History Dermoid cyst of both ovaries Migraine-cluster headache syndrome Acute streptococcal pharyngitis Anemia Surgical History [place] teeth extracted H/O ovarian cystectomy Previous section Family History Grandmother Asthma Cancer salivary glands Diabetes Grandfather COPD (chronic obstructive pulmonary disease) Bladder cancer, Onset Age: 75 paternal Skin cancer paternal Lung cancer, Onset Age: 70 Sister Endometriosis Mother Thyroid disorder Anxiety Depression Other CVA (cerebral vascular accident) Social History adopted: No household members: significant other and children number of children: 2 current occupational status: employed current occupation: [employer] Smoking Status: Former smoker alcohol intake: never substance use type: does not use what type of physical activity do you participate in: none seatbelt use: sometimes do you feel safe at home: Yes additional social history: Ofelia Adan Patient has 2 kids, Loco has 3 kids HPI HYSTERECTOMY CONSULT Details: GOGO WELDON is a 34 year old who presents for Female Reproductive History Last Menstrual Period: 04/22/25 Menopausal Symptoms: No night sweats History 3 Elective abortions Hx Para 2 Spontaneous abortions 1 Hx # Term Pregnancies Ectopic pregnancies Hx # Pregnancies Multiple births # of living children 2 Past Pregnancies Del. Date Name GA/Weeks Outcome Route Bth Weight Infant Gen Labor Lgth Anesthesia Del [facility] Provider FOB Unknown 2016 7 spontaneous Unknown 2014 Michael live - full term Unknown 2017 Hay live - ROS Const Constitutional: Denies fatigue, night sweats, weight gain or weight loss ENT ENT: Reports system reviewed and no additional complaints, except as documented Cardio Card: Denies chest pain Resp Resp: Denies cough or dyspnea GI GI: Reports as per HPI; Denies abdominal pain, constipation, nausea or vomiting : Denies nipple discharge, urinary frequency, urinary incontinence, urinary hesitancy, urinary urgency, vaginal discharge, vaginal dryness, vaginal odor or vaginal pruritus Musc Musc: Denies arthralgias, back pain or muscle weakness Skin Skin/Breast: Denies alopecia, change in hair, dry skin, breast mass, breast pain, breast skin changes or nipple discharge Neuro Neuro: Reports system reviewed and no additional complaints, except as documented Psych Psych: Reports system reviewed and no additional complaints, except as documented Endo Endo: Denies cold intolerance, excessive sweating, heat intolerance or polydipsia Arnold/Lymph Hematologic/Lymphatic: Denies easy bleeding, Denies easy bruising and Denies lymphadenopathy Exam Const General: cooperative, healthy appearing, comfortable and no acute distress Orientation: alert HENMT Head: normal to inspection and normocephalic Ears: hearing grossly normal bilaterally and external ears normal Nose: external nose normal and nares normal Face and sinus: normal facial exam Neck Neck: normal visual inspection and no lymphadenopathy Thyroid: thyroid normal Chest Chest palpation & inspection: normal inspection of the chest Resp Effort & Inspection: normal respiratory effort Auscultation: clear to auscultation bilaterally Cardio Rate: regular rate Rhythm: regular rhythm Heart Sounds: S1 normal and S2 normal GI Inspection: normal to inspection and non-distended Palpation: soft and no hepatosplenomegaly Musc Other: gross motor intact no deficits, full bilateral strength Skin General: no rashes or lesions noted Neuro General: patient alert, patient awake, moves all extremities and no focal motor deficits Motor: muscle tone normal throughout Extrem General: normal to inspection and no pedal edema Psych Appearance: grossly normal Mental Status: mental status grossly normal Affect: normal affect Speech and Movement: speech and movement normal Coding Level of Care Code Off vis,new,level 4 Diagnoses Abnormal uterine bleeding N93.9 Ovarian cyst N83.209 Assessment and Plan Assessment and Plan (1) Abnormal uterine bleeding: Status: Acute Comment: failed ocp in the past, 2 prev csection, tried natural remedies OTC. (2) Ovarian cyst: Status: Acute Comment: dermoid in the past Plan discussed workup and options plan ultrasound and labs and fu for EMB and discussoptions. 04/24/25 1057 <Electronically signed by Olga song MD> Date _ Olga Yoon MD Cosigner Signature: Date (if applicable) CC: ~ [facility] Work Phone: Reason for referral (narrative)No reason for referral information availableKaiser Foundation Hospital Work Phone: Summary Purpose Family History No Family History Records Found Relationship Condition Age at Onset Recorded Date/T [place] Not Specified Cerebrovascular accident (CVA) Unknown grandmother Asthma Unknown Malignant neoplasm Unknown Diabetes mellitus Unknown grandfather Chronic obstructive pulmonary disease Unk nown Malignant neoplasm of urinary bladder 75 Malignant neoplasm of skin Unknown Malignant neoplasm of lung 70 sister Endometriosis Unknown mother Disorder of thyroid Unknown Anxiety Unknown Depression Unknown Advance Directives No Advanced Directives Records FoundNo Advanced Directives Records Found Chief Complaint and Reason for Visit Chief Complaint Admit Date HIVES/RASH February 03, 2025 8:01 am Chief Complaint Admit Date HIVES/RASH February 03, 2025 8:01 am CONCERN FOR UTI April 22, 2025 5: 14pm Chief Complaint Admit Date HIVES/RASH February 03, 2025 8:01 am CONCERN FOR UTI April 22, 2025 5: 14pm HYSTERECTOMY CONSULT April 24, 2025 1 0:22am Reason for Visit Admit Date Abnormal uterine bleeding April 24, 2 025 10:22am Ovarian cyst April 24, 2025 10 :22am Chief Complaint Admit Date HIVES/RASH February 03, 2025 8:01 am CONCERN FOR UTI April 22, 2025 5: 14pm HYSTERECTOMY CONSULT April 24, 2025 1 0:22am AUB May 01, 2025 1:16pm Additional Source Comments Source Comments (unrecognize d section and content) In the event this informatio n is protected by the Federal Confidentiality of Alcohol and Drug Abuse Patient Records regulations: The Federal rules restrict any use of the information to criminally investigate or prosecute any alcohol or drug abuse patient.[facility] Reason for Visit (unrecogniz ed section and content) Reason Comments Sore Throat x 2 days INFORMATION SOURCE (unrecogn ized section and content) DATE CREATED AUTHOR 11/23/2024 [facility] DATE CREATED AUTHOR AUTHOR'S ORGANIZ ATION 07/02/2025 [facility] Care Teams (unrecognized sec tion and content) Team Status: Active Member Role Status Dates No Primary Care Physician Family Provider Active No Primary Care Physician Primary Care Provider Active Team Status: Inactive Member Role Status Dates No Primary Care Physician Primary Care Provider Active Start: February 03, 2025 End: February 03, 2025 No Primary Care Physician Referring Provider Active Start: February 03, 2025 End: February 03, 2025 MARILEE Pineda Attending Provider Active Start: February 03, 2025 End: February 03, 2025 Team Status: Active Member Role/Relationship Status Dates No Primary Care Physician Family Provider Active No Primary Care Physician Primary Care Provider Active Team Status: Inactive Member Role/Relationship Status Dates No Primary Care Physician Primary Care Provider Active Start: February 03, 2025 End: February 03, 2025 No Primary Care Physician Referring Provider Active Start: February 03, 2025 End: February 03, 2025 MARILEE Pineda Attending Provider Active Start: February 03, 2025 End: February 03, 2025 Team Status: Inactive Member Role/Relationship Status Dates No Primary Care Physician Primary Care Provider Active Start: April 22, 2025 End: April 22, 2025 No Primary Care Physician Referring Provider Active Start: April 22, 2025 End: April 22, 2025 MARILEE Pineda Attending Provider Active Start: April 22, 2025 End: April 22, 2025 Team Status: Active Member Role/Relationship Status Dates No Primary Care Physician Primary Care Provider Active Start: April 23, 2025 MARILEE Pineda Attending Provider Active Start: April 23, 2025 MARILEE Pineda Referring Provider Active Start: April 23, 2025 Team Status: Inactive Member Role/Relationship Status Dates No Primary Care Physician Primary Care Provider Active Start: April 24, 2025 End: April 24, 2025 No Primary Care Physician Referring Provider Active Start: April 24, 2025 End: April 24, 2025 Dr. Olga Yoon MD Attending Provider Active Start: April 24, 2025 End: April 24, 2025 Team Status: Active Member Role/Relationship Status Dates No Primary Care Physician Primary Care Provider Active Start: April 24, 2025 Dr. Olga Yoon MD Attending Provider Active Start: April 24, 2025 Dr. Olga Yoon MD Referring Provider Active Start: April 24, 2025 Team Status: Active Member Role/Relationship Status Dates No Primary Care Physician Primary Care Provider Active Team Status: Inactive Member Role/Relationship Status Dates No Primary Care Physician Primary Care Provider Active Start: April 23, 2025 End: April 23, 2025 MARILEE Pineda Attending Provider Active Start: April 23, 2025 End: April 23, 2025 MARILEE Pineda Referring Provider Active Start: April 23, 2025 End: April 23, 2025 Team Status: Inactive Member Role/Relationship Status Dates No Primary Care Physician Primary Care Provider Active Start: April 24, 2025 End: April 24, 2025 Dr. Olga Yoon MD Attending Provider Active Start: April 24, 2025 End: April 24, 2025 Dr. Olga Yoon MD Referring Provider Active Start: April 24, 2025 End: April 24, 2025 Team Status: Active Member Role/Relationship Status Dates No Primary Care Physician Primary Care Provider Active Start: May 01, 2025 Dr. Olga Yoon MD Attending Provider Active Start: May 01, 2025 Dr. Olga Yoon MD Referring Provider Active Start: May 01, 2025 Team Status: Active Member Role/Relationship Status Dates No Primary Care Physician Primary care physician Activ e Team Status: Inactive Member Role/Relationship Status Dates No Primary Care Physician Primary care physician Activ e Start: February 03, 2025 End: February 03, 2025 No Primary Care Physician Referring Provider Active Start: February 03, 2025 End: February 03, 2025 MARILEE Pineda Attending physician Active Start: February 03, 2025 End: February 03, 2025 Team Status: Inactive Member Role/Relationship Status Dates No Primary Care Physician Primary care physician Activ e Start: April 22, 2025 End: April 22, 2025 No Primary Care Physician Referring Provider Active Start: April 22, 2025 End: April 22, 2025 MARILEE Pineda Attending physician Active Start: April 22, 2025 End: April 22, 2025 Team Status: Inactive Member Role/Relationship Status Dates No Primary Care Physician Primary care physician Activ e Start: April 23, 2025 End: April 23, 2025 MARILEE Pineda Attending physician Active Start: April 23, 2025 End: April 23, 2025 MARILEE Pineda Referring Provider Active Start: April 23, 2025 End: April 23, 2025 Team Status: Inactive Member Role/Relationship Status Dates No Primary Care Physician Primary care physician Activ e Start: April 24, 2025 End: April 24, 2025 No Primary Care Physician Referring Provider Active Start: April 24, 2025 End: April 24, 2025 Dr. Olga Yoon MD Attending physician Active Start: April 24, 2025 End: April 24, 2025 Team Status: Inactive Member Role/Relationship Status Dates No Primary Care Physician Primary care physician Activ e Start: April 24, 2025 End: April 24, 2025 Dr. Olga Yoon MD Attending physician Active Start: April 24, 2025 End: April 24, 2025 Dr. Olga Yoon MD Referring Provider Active Start: April 24, 2025 End: April 24, 2025 Team Status: Inactive Member Role/Relationship Status Dates No Primary Care Physician Primary care physician Activ e Start: May 01, 2025 End: May 01, 2025 Dr. Olga Yoon MD Attending physician Active Start: May 01, 2025 End: May 01, 2025 Dr. Olga Yoon MD Referring Provider Active Start: May 01, 2025 End: May 01, 2025 Goals (unrecognized section and content) Goals may be documented in a n alternate sectionGoals may be documented in an alternate sectionGoals may be documented in an alternate sectionGoals may be documented in an alternate sectionGoals may be documented in an alternate sectionGoals may be documented in an alternate section FOR RECORDS PERTAINING TO PATIENTS WHO ARE OR HAVE BEEN ENROLLED IN A CHEMICAL DEPENDENCY/SUBSTANCEABUSE PROGRAM, SOME INFORMATION MAY BE OMITTED. This clinical summary was aggregated from multiple sources. Caution should be exercised in using it in the provision of clinical care. This summary normalizes information from multiple sources, and as a consequence, information in this document may materially change the coding, format and clinical context of patient data. In addition, data may be omitted in some cases. CLINICAL DECISIONS SHOULD BE BASED ON THE PRIMARY CLINICAL RECORDS. [facility]. provides no warranty or guarantee of the accuracy or completeness of information in this document.
[2025-08-13] MEDS: Scopolamine 1mg/72hr Patch 1 PATCH TD (06:17)
[2025-08-13] MEDS: metroNIDAZOLE 500 MG/100 ML BAG 100 MG IV (06:20)
[2025-08-13] MEDS: Lactated Ringers 1,000 ML 40 ML IV (06:20)
[2025-08-13] MEDS: Magnesium 1 GM over 15 mins IV (06:20)
[2025-08-13 06:57] LABS: Internal QC Validated? YES +Cl - CLEAR BKGD; Pregnancy, Urine Negative Negative
--- NOTE | 2025-08-13 07:13 | PRE.ANES_ITS ---
ASA Classification* ASA Classification ASA Classification: 1 Assessment & Plan Anesthesia* Anesthesia Assessment Anesthesia Assessment: Discussed sedation and/or anesthesia options, risks, benefits, and alternatives with patient/parents/legal guardian/POA. Questions invited. The patient/parents/legal guardian/POA seems to understand and agrees to proceed with anesthesia plan. Reviewed the physical assessment, medical history, allergy history and patient home medications list prior to surgery/procedure/anesthetic and documented any changes. Performed airway and anesthesia risk assessments. Anesthesia Type Anesthesia Type: General History Source History Obtained from:: Patient and Chart Anesthesia Focused Assessment* Temperature: 97.5 F Pulse Rate: 89 Blood Pressure: 118/67 Respiratory Rate: 16 Pulse Ox: 97 Oxygen Delivery Method: Room Air Airway Assessment Mouth opens: >3 cm Mallampati Score: II Teeth Condition: Intact Neck Range of motion (ROM): Full ROM Labs Anesthesia Preop lab: CBC WBC, (4.4-11.0) 7.0 K/mm3 08/06/25, 11:05 RBC, (4.2-5.4) 4.57 M/mm3 08/06/25, 11:05 Hgb, (12.0-15.0) 12.8 g/dL 08/06/25, 11:05 Hct, (37-47) 38.3 % 08/06/25, 11:05 Plt Count, (150-450) 271 K/mm3 08/06/25, 11:05 CHEMISTRY Magnesium, (1.5-2.2) 2.1 mg/dL 08/06/25, 11:05 POC Glucose, (70-110) 74 mg/dL 03/11/15, 07:00 TSH, (0.300-4.200) 1.380 uIU/mL 04/24/25, 11:00 COAG PT, (11.7-14.9) 13.5 SECONDS 06/18/17, 11:40 HCG, Quant, (<9 non-preg) 3067 mIU/mL H 04/29/17, 15:4 0 Urine Test Negative Negative Today, 06:01 Tst Clinic Negative 06/19/25, 14:03 Pre-Assessment Diagnosis/Proposed Procedure Planned Operative Procedure(s): (B) Hysterectomy,LAVH, Bilateral Salpingectomy Anesthesia History Anesthesia History - parachutist/combatant diver qualified: Anesthesia History - parachutist/combatant diver qualified Hx Hospitalization No 07/30/25 11:06 Any Problems With Anesthesia No 07/30/25 11:06 Cholinesterase deficiency No 07/30/25 11:06 You/Your Family Experience No 07/30/25 11:06 fever (hyperthermia) with Relationship Recent Exposure to Contagious No 08/13/25 06:08 Disease Does patient have nerve No 07/30/25 11:06 stimulator Patient instructed to have device shut off --Does patient have Pacemaker No 08/13/25 06:08 or ICD? When Was Last Pacemaker Check QUESTION #4 FULL TEXT: You/Your Family Experience fever (hyperthermia) with Anesthesia Last Oral Intake Last Oral intake: Last Oral Intake NPO since 16:00 08/13/25 06:08 Meds taken in AM with sips of No 08/13/25 06:08 water? Meds patient instructed to take am of surgery PONV PONV - parachutist/combatant diver qualified: PONV - parachutist/combatant diver qualified Female Yes 07/30/25 11:06 HX of Motion Sickness No 07/30/25 11:06 HX of N/V After Surgery No 07/30/25 11:06 Non-Smoker Yes 07/30/25 11:06 Duration of Surgery greater Yes 07/30/25 11:06 than 60 minutes Number of Risk Factors 3 07/30/25 11:06 PONV Score Moderate Risk 07/30/25 11:06 Height & Weight Height & Weight: Anesthesia: Height & Weight Height 5 ft 6.14 in 08/13/25 06:08 Weight: 86.183 kg 08/13/25 06:08 Body Mass Index (BMI) 30.5 08/13/25 06:08 Respiratory Assessment Respiratory Assessment - parachutist/combatant diver qualified: Respiratory Tract Infection Hx - parachutist/combatant diver qualified Hx Respiratory Tract Infection No 07/30/25 11:06 STOP Sleep Apnea STOP Sleep Apnea - parachutist/combatant diver qualified: STOP Sleep Apnea - parachutist/combatant diver qualified Hx Hypertension No 07/30/25 11:06 Hx Sleep Apnea No 07/30/25 11:06 CPAP BIPAP Do you snore loudly (louder No 07/30/25 11:06 than talking or can be heard Do you often feel tired/ No 07/30/25 11:06 fatigued/ sleepy during daytime? Has anyone observed you stop No 07/30/25 11:06 breathing during sleep? STOP Results Negative 07/30/25 11:06 QUESTION #5 FULL TEXT : Do you snore loudly (louder than talking or can be heard through closed doors)? Tobacco Use History Tobacco Use History - parachutist/combatant diver qualified: Tobacco Use History - parachutist/combatant diver qualified Tobacco Use Smoking Status Former smoker 07/30/25 11:06 Hx Tobacco Use Yes 07/30/25 11:06 Years Smoking Packs Smoked per Day Smoking Cessation Date was Yes - quit smoking within 15 07/30/25 11:06 within the last 15 years years Hx Smoking Cessation Date Hx Smoking Cessation No 07/30/25 11:06 Counseling Hematologic Medial History Hematologic Hx - parachutist/combatant diver qualified: Hematologic Medical Hx - delphi developer Hx of Blood Transfusion No 07/30/25 11:06 Hx of Transfusion in last 3 No 07/30/25 11:06 Months Date of Last Transfusion (if within last 3 months) Ever experience any problems No 07/30/25 11:06 with transfusion(s)? Specify any problems Hx of Preganancy in last 3 No 07/30/25 11:06 Months Nurse Filling Out Transfusion JZOLLINGE 07/30/25 11:06 & Questions: Date: 07/30/25 07/30/25 11:06 Time: 11:07 07/30/25 11:06 Patient unable to answer at this time (ie. confused, unrespo /Reproduction History /Reproductive History - parachutist/combatant diver qualified: /Reproductive Hx- parachutist/combatant diver qualified Hx Now No 07/30/25 11:06 Gestational Age (in weeks): EDC: Hx Hx Para Hx Section SAB No 08/06/25 10:23 Does the father of the baby or his family experience fever w Father of the baby Malignant Hypertension history comment Active Medications Active Medications: Current Medications Generic Name Dose Route Start Last Admin Trade Name Freq PRN Reason Stop Dose Admin Acetaminophen 1,000 mg 08/13/25 07:30 08/13/25 06:18 Acetaminophen 500 Mg Tablet PO 08/13/25 07:31 1,000 mg PREOP ONE Administration Celecoxib 400 mg 08/13/25 07:30 08/13/25 06:18 Celecoxib 200 Mg Capsule PO 08/13/25 07:31 400 mg PREOP ONE Administration Enoxaparin Sodium 40 mg 08/13/25 07:30 08/13/25 06:17 Enoxaparin 40 Mg/0.4 Ml Syringe SC 08/13/25 07:31 40 mg PREOP ONE Administration Gabapentin 600 mg 08/13/25 07:30 08/13/25 06:18 Gabapentin 600 Mg Tablet PO 08/13/25 07:31 600 mg PREOP ONE Administration Lactated Ringer's 1,000 mls @ 40 mls/hr 08/13/25 07:30 08/13/25 06:20 IV 40 mls/hr .Q25H [place] Administration Cefazolin Sodium 2 gm/ Sodium 110 mls @ 150 mls/hr 08/13/25 07:30 Chloride IV 08/13/25 08:13 INTRAOP ONE Lactated Ringer's 1,000 mls @ 70 mls/hr 08/13/25 08:30 IV .[id number] [place] Metronidazole 500 mg in 100 mls @ 100 mls/hr 08/13/25 07:30 08/13/25 06:20 Flagyl IV 08/13/25 08:29 100 mls/hr INTRAOP ONE Administration Magnesium Sulfate 1 gm/ 102 mls @ 408 mls/hr 08/13/25 07:30 08/13/25 06:20 Dextrose IV 08/13/25 07:44 408 mls/hr PREOP ONE Administration Insulin Human Lispro 0 unit 08/13/25 07:30 Insulin Lispro 100 Unit/Ml Insuln.Pen SC 08/13/25 13:30 Q4H PRN PRN BG >/= 180, SEE PROTOCOL Protocol Ondansetron HCl 4 mg 08/13/25 08:00 Ondansetron 4 Mg/2 Ml Vial IV 08/13/25 08:01 INTRAOP ONE Phenazopyridine HCl 190 mg 08/13/25 07:30 08/13/25 06:17 Phenazopyridine 95 Mg Tablet PO 08/13/25 07:31 190 mg PREOP ONE Administration Scopolamine HBr 1 patch 08/13/25 07:30 08/13/25 06:17 Scopolamine 1mg/72hr Patch TD 08/13/25 07:31 1 patch PREOP ONE Administration PFSH Medical History Pre-op testing Wears glasses Former smoker Dermoid cyst of both ovaries Migraine-cluster headache syndrome Acute streptococcal pharyngitis Anemia Home Medications ?Medication ?Instructions ?Recorded ?Last Taken ?Type NK 08/06/25 Unknown History Allergy/AdvReac Type Severity Reaction Status Date / Time titanium Allergy Severe Hives Verified 08/06/25 10:22 bee venom protein (honey bee) Allergy Mild Swelling Verified 08/06/25 10:22 Family History Grandmother Asthma Cancer salivary glands Diabetes Grandfather COPD (chronic obstructive pulmonary disease) Bladder cancer, Onset Age: 75 paternal Skin cancer paternal Lung cancer, Onset Age: 70 Sister Endometriosis Mother Thyroid disorder Anxiety Depression Other CVA (cerebral vascular accident) Surgical History Oran teeth extracted H/O ovarian cystectomy Previous section Social History adopted: No household members: significant other and children number of children: 2 current occupational status: employed current occupation: [employer] Smoking Status: Former smoker alcohol intake: never substance use type: does not use what type of physical activity do you participate in: none seatbelt use: sometimes do you feel safe at home: Yes additional social history: Ofelia Adan Patient has 2 kids, Loco has 3 kids Review of Systems (Anesthesia) ROS Narrative System reviewed and no additional complaints, except as documented.
[2025-08-13] MEDS: Cefazolin 1 GM/5 ML Vial 2 GM IV (07:30)
--- NOTE | 2025-08-13 07:30 | HYST_PTH ---
PATIENT: MARTHA WELDON [place] [facility] [place][id number] AGE/SX: 35/F ROOM: RE08/13/[address]: Dr. Olga Yoon MD : 1990 BED: DIS: 08/13/2025 SPEC #: [id number] RECD: 08/13/25 10:56 STATUS: ZHAO REQ #: [id number] CLEVE: 08/13/25 07:[address]: Olga Yoon DEPT: SURGICAL PATHOLOGY RECD BY: He Nassar ENTERED: 08/13/25 14:19 SP TYPE: HYSTERECT OTHR DR: Dr. Christopher Alexandre MD No Primary Care Phys Tissues: A - CYST B - Uterus, NOS Procedures: Surgery Specimen Level III Surgery Specimen Level V HEADER OPERATION: ERAS, hysterectomy, LAVH, bilateral salpingectomy PRE-OP DIAGNOSIS: Abnormal uterine bleeding TISSUE SUBMITTED: A- Dermoid cyst, B- Uterus, cervix, bilateral fallopian tubes MICROSCOPIC DIAGNOSIS A. Soft tissue, dermoid cyst, excision: Mature cystic teratoma - see note. Note: Sections reveal skin with adnexal structures and adipose, and mature neural tissue (ganglion). B. Uterus, fallopian tubes, hysterectomy and salpingectomy: Cervix: mild hyperkeratosis, Nabothian cyst. Endometrium: secretory phase Myometrium: no specific pathologic change. Left fallopian tube: mildly dilated lumen with flattened mucosa suggestive of hydrosalpinx Right fallopian tube: mildly dilated lumen with flattened mucosa suggestive of hydrosalpinx MICROSCOPIC DESCRIPTION Slides are reviewed. GROSS DESCRIPTION Received in 2 formalin containers labeled with the patient's name and date of . Designated as: A. Dermoid cyst is a 6.5 g, 3.4 x 2.5 x 1.2 cm pink-red and granular, previously disrupted, and somewhat pedunculated cyst expelling yellow grumous material and blonde to light brown hair. The cyst is attached to a portion of munoz-pink, focally cauterized, semimembranous tissue and the specimen collectively measures 6.2 x 2.0 x 1.3 cm. Sectioning reveals that the cyst wall is lined by munoz, hairbearing skin and contains soft yellow fatty tissue within the lumen in addition to a portion of apparent bone (versus tooth). Boat Puller sections (95% of the cyst with the exception of bone/tooth) are submitted in 4 cassettes. B. Uterus, cervix, bilateral fallopian tubes is a 104.5 g, 9.2 x 5.7 x 4.0 cm uterus with attached adnexa. The serosa is munoz-pink with focal erythema and a possible adhesion. The attached cervix is munoz-white with patchy, petechial erythema and measures 3.5 x 2.9; the 1.0 cm os is probe patent. The specimen is inked as follows: [id number] Opening reveals a 5.7 x 3.2 cm endometrial canal lined by munoz-red, somewhat lush endometrium that measures up to 0.7 cm thick. There are mucoid containing cysts at and adjacent to the squamocolumnar junction. The myometrium is munoz-pink and measures up to 2.0 cm thick. The right-purple bilateral fallopian tubes are not fimbriated and measure 4.3 x 1.3 cm (L) and 3.6 x 0.9 cm (R) Boat Puller sections are submitted as follows: B1: Anterior/posterior cervixB2: Anterior endomyometriumB3: Posterior endomyometriumB4: Left fallopian tubeB5: Right fallopian tubeB6: Mucoid cyst at and adjacent to squamocolumnar junction LA 08/13/2025 CPT:27219v8
[2025-08-13] MEDS: Lidocaine 1% (5 ml sdv) 5 ML Vial 10 ML IV (07:35)
[2025-08-13] MEDS: DiphenhydrAMINE 50 MG/ML Syringe 12.5 MG IV (07:45)
--- NOTE | 2025-08-13 07:45 | PCM.OPRPT ---
Procedures Urinary/Genital 52xxx-59xxx: [id number] LAVH+BS/O <250gr Uterus Operative Report (Standard) Operative Information Date of Procedure: 08/13/25 Pre-Operative Diagnosis: see problem list AUB Post-Operative Diagnosis: same plus dermoid cyst Surgery/Procedure Performed: laparoscopic assisted vaginal hysterectomy bilateral salpingectomy lysis of adhesions left ovarian cystectomy cystoscopy batter mixer: Yes End Touching Machine Operator: Michelle Russell Tasks completed by assistant prosecuting attorney: Opening & closing, Trocar and Retracting Additional dental chairside assistant?: No Type of Anesthesia: General RN Documented Start/Stop Times: Operation Date: 08/13/25 07:30 Case Time Into Pre-Op 08/13/25 05:46 Out of Pre-Op 08/13/25 07:26 Anesthesia Start 08/13/25 07:29 Into Room 08/13/25 07:29 Procedure Start 08/13/25 07:50 Procedure Start Time: 07:50 Procedure Stop Time: 10:25 Select all DRAINS/GRAFTS/IMPLANTS that apply: Drains (rosado) Drain details: rosado remove at the end of the procedure Estimated Blood Loss: 300 Fluids Replaced: crystalloid Specimen collected: Yes Description of specimen(s) removed: uterus and tubes Description of surgery: Patient received preoperative antibiotics and SCDs were on preoperatively. Patient was taken back to the operating room and placed in the dorsal lithotomy position. General anesthesia was induced and patient was prepped and draped in normal sterile fashion. Uterine manipulator was placed inside the uterus and Rosado catheter placed in the bladder. The umbilicus was grasped with towel clamps and an intraumbilical incision was made after injecting with quarter percent Marcaine and a Veress needle entered into the abdomen confirmed to be intra-abdominal with a low opening pressure. Abdomen was insufflated with CO2 gas and the Veress needle removed and the 5 mm trocar was placed under direct visualization without complication. Right and left lower quadrants were transilluminated and injected with quarter percent Marcaine and 5 mm ports placed under direct visualization. Pelvis was well visualized see operative findings for additional information. left ovary was noted to be enlarged and a longitudinal inciison made across it, greasy material and hair extruded confirming it was a dermoid, so a cystectomy was performed and removed through a bag, the pelvis copiously irrigated. Bilateral fallopian tubes were identified and transected with the LigaSure device across the mesosalpinx to the level of the utero-ovarian ligament which was also transected with the LigaSure device. The broad ligament was opened up by transecting the round ligament bilaterally and skeletonizing the uterine vessels bilaterally, and creating a bladder flap using the LigaSure device. severe vesicouterine adhesions were encountered and adheisiolysis was performed with hydrodissection, monopoloar energy and the ligasure, sharp dissetion. this took approximately 35 minutes. The uterine arteries were transected bilaterally with good visualization of the bladder and the ureters were seen to be inferior lateral to the operative area. Attention was then paid to the vaginal portion of the procedure and the cervix was grasped with Marco clamps and circumferentially injected with dilute vasopressin. A circumferential incision was made and the vaginal mucosa was mobilized off posteriorly and the cul-de-sac entered into sharply and a longneck speculum placed. The anterior cul-de-sac was then identified and entered into sharply. The uterosacral ligaments were clamped cut and suture ligated with 0 Monocryl bilaterally followed by the cardinal ligaments which were clamped cut and suture ligated bilaterally with 0 Monocryl. The uterus serially descended and was removed without difficulty with minimal morcellation. Pelvic sidewall pedicles were checked and noted to have excellent hemostasis. The vaginal mucosa was reapproximated incorporating the posterior peritoneum. This was reapproximated using 0 Vicryl [id number] sutures. Excellent hemostasis was noted. The cystoscopy was then performed and bilateral ureteral strong spray was noted and the bladder was noted to have no abnormality or lesions seen. Attention paid to the abdominal portion of the procedure again. The pelvis and cul-de-sac was well visualized and no significant active bleeding noted. Pressure was taken down and the areas visualized and noted of excellent hemostasis. All ports were removed under direct visualization without complication and the abdomen was desufflated of air. The instruments removed from the abdomen and the vagina vaginal sweep was negative. Port sites on the abdomen were closed with 4-0 Monocryl interrupted sutures and Steri's and windows were applied. She was awoken and taken recovery in stable condition. Surgical Findings: severe vesicouterine adhesions right lower fibroid anteriorly left ovarian dermoid cyst Complications Complications: No
--- NOTE | 2025-08-13 07:45 | PCM.DC ---
Discharge Instructions DC O2, CPAP, BIPAP needs Home O2 Discharge instructions: No Dressing / Incision May resume sexual activity in: 6 weeks Weight Bearing Status: Full weight bearing Dressing / Incision Call your doctor if your incision/area has: Continuous Slow Oozing, Sudden Increased Bleeding, Increased Pain/ Swelling, Increased Redness and Foul Smelling Discharge Call your doctor if you observe: Fever of 101 or Higher, Using more than 1 pad per hour, Shortness of breath, Chest pain and Uncontrolled pain Suture Line Care: Avoid Pulling/Pushing and Avoid Pinching/Bending Remove Dressing in: 1 week (if present) Cleanse incision/area with: Soap & Water and Keep Dressing Clean & Dry Follow Up Care Please Follow Up With: Olga Yoon MD When: Call to make an appointment with your doctor for a postop visit in 2 and 6 weeks. Test Results: Test results from this visit will be discussed in further detail at your follow-up appointment, if applicable. Discharge Plan Admission Attending Provider: Olga Yoon Primary Care Provider: Care Physician,No Primary Consulting Providers: Christopher Alexandre Instructions Print Language: Ivorian Discharge Orders/Prescriptions Prescriptions: New oxycodone-acetaminophen [Percocet] 5-325 mg tablet 1 tab PO Q4H PRN (Reason: pain) 7 Days Qty: 20 0RF naproxen 500 mg tablet 500 mg PO BID PRN PRN (Reason: Pain) Qty: 30 1RF Other Ambulatory Orders: CBC-Complete Blood Cnt No Diff (Routine) Timeframe: 20250813 Facility: [facility] - Location: Laboratory Ordered By: Dr. Olga Yoon ,Urine (Routine) Timeframe: 20250813 Facility: [facility] - Location: Laboratory Ordered By: Dr. Olga Yoon Referrals / Follow Up: Care Physician,No Primary [Primary Care Provider, Medical] Disposition Disposition (needs filled in before D/C Order can be placed): Home, Self Care
[2025-08-13] MEDS: Lactated Ringers 2,000 ML 2000 ML IV (08:46)
[2025-08-13] MEDS: fentaNYL 100 MCG/2 ML Ampul 200 MCG IV (10:52)
--- NOTE | 2025-08-13 10:54 | PCM.POST.ANE ---
Anesthesia: Postop Eval I Current Vital Signs Temperature: 97 F Pulse Rate: 54 Blood Pressure: 105/52 Respiratory Rate: 16 Pulse Ox: 100 Oxygen Delivery Method: Room Air Assessment Airway patent: Yes Spontaneous unlabored respirations: Yes Mental status: Asleep nausea: No Vomiting: No Anesthesia Complication: No Fluid Hydration Crystalloid volume administer (ml): 2,000 Total IV fluid infused: 2,000 Progress Note Anesthesia document: Postop Eval 1 completed: Yes
[2025-08-13] MEDS: Lactated Ringers @ 70 MLS/HR 70 ML IV (11:16)
[2025-08-13] MEDS: Ketorolac 30 MG/ML Syringe IV (12:24)
[2025-08-13 14:07] LABS: Hematocrit 36.9 % (37-47); Hemoglobin 12.2 g/dL (12.0-15.0); Mean Corp Hgb Conc 33.1 g/dL (32-36); Mean Corpuscular Volume 84.4 fL (81-99); Mean Platelet Vol. 10.3 fl (6.2-12.0); Platelet Count 248 K/mm3 (150-450); RBC Distribution Width CV 12.5 % (11.6-14.6); RBC Distribution Width SD 38.3 fl (35.1-43.9); Red Blood Count 4.37 M/mm3 (4.2-5.4); White Blood Count 18.5 K/mm3 (4.4-11.0)
--- NOTE | 2025-08-13 14:45 | POSTOPAN2_ITS ---
Anesthesia Postop Eval I Sum Postop Eval Completion status Anesthesia document: Postop Eval 1 completed: Yes Anesthesia Postop Eval I Summary Anesthesia Postop Eval I Summary: Anesthesia Postop Eval I: Assessment Summary Airway patent Yes 08/13/25 10:55 CIRCUIT BOARD REPAIR [email or web address] Spontaneous unlabored Yes 08/13/25 10:55 CIRCUIT BOARD REPAIR [email or web address] respirations Mental status Asleep 08/13/25 10:55 CIRCUIT BOARD REPAIR [email or web address].[email or web address] nausea No 08/13/25 10:55 CIRCUIT BOARD REPAIR TECHNICIAN.[email or web address] Vomiting No 08/13/25 10:55 CIRCUIT BOARD REPAIR [email or web address].[email or web address] Anesthesia Postop Eval I: Fluid Summary Crystalloid volume administer 2,000 08/13/25 10:55 CIRCUIT BOARD REPAIR TECHNICIAN.[email or web address] (ml) Colloids volume administered ( ml) Blood Product volume administered (ml) Total IV fluid infused 2,000 08/13/25 10:55 CIRCUIT BOARD REPAIR [email or web address] Anesthesia Postop Eval I: Summary Notes Anesthesia Complication No 08/13/25 10:55 CIRCUIT BOARD REPAIR [email or web address].[email or web address] Anesthesia Complication Comment: Post-operative progress note Anesthesia: Postop Eval II Evaluation Mental status: Awake and Calm Pain Level: 1 nausea: No Vomiting: No Complications Anesthesia Complication: No
--- NOTE | 2025-08-13 14:45 | PCM.POSTANE2 ---
Anesthesia Postop Eval I Sum Postop Eval Completion status Anesthesia document: Postop Eval 1 completed: Yes Anesthesia Postop Eval I Summary Anesthesia Postop Eval I Summary: Anesthesia Postop Eval I: Assessment Summary Airway patent Yes 08/13/25 10:55 GOLF CART [email or web address] Spontaneous unlabored Yes 08/13/25 10:55 GOLF CART [email or web address] respirations Mental status Asleep 08/13/25 10:55 GOLF CART [email or web address] nausea No 08/13/25 10:55 GOLF CART MECHANIC.[email or web address] Vomiting No 08/13/25 10:55 GOLF CART [email or web address] Anesthesia Postop Eval I: Fluid Summary Crystalloid volume administer 2,000 08/13/25 10:55 GOLF CART [email or web address].[email or web address] (ml) Colloids volume administered ( ml) Blood Product volume administered (ml) Total IV fluid infused 2,000 08/13/25 10:55 GOLF CART [email or web address] Anesthesia Postop Eval I: Summary Notes Anesthesia Complication No 08/13/25 10:55 GOLF CART [email or web address] Anesthesia Complication Comment: Post-operative progress note Anesthesia: Postop Eval II Evaluation Mental status: Awake and Calm Pain Level: 1 nausea: No Vomiting: No Complications Anesthesia Complication: No
== END 2025-08-13 16:34 | disposition home or self-care (01) ==
LOC: SDC 05:29 → AC 05:29
PROVIDERS: Anesthesiology; Referring Provider Obstetrics & Gynecology; Visit Provider Obstetrics & Gynecology
PROC: 0UT9FZZ Resection of Uterus, Via Natural or Artificial Opening With Percutaneous Endoscopic Assistance (ICD-10-PCS; CPT 58552; principal; 2025-08-13 07:05)
DX: N93.9 Abnormal uterine and vaginal bleeding, unspecified (principal); Z87.891 Personal history of nicotine dependence; D27.1 Benign neoplasm of left ovary; N83.8 Other noninflammatory disorders of ovary, fallopian tube and broad ligament; D25.9 Leiomyoma of uterus, unspecified
CPT/HCPCS: 58552; 00840; 58661; 58660; 52000; 36415; 81025; 82962; 83735; 85027; 86850; 86900; 86901; 88304; 88307; J2405; J3475